=== PATIENT | male | born 1950 | race Caucasian/White ===

== ENCOUNTER → 2016-12-31 | Outpatient (CLI) | payer MEDICARE ==
[2016-12-31 11:40] LABS: Basophils # (A) 0.1 k/uL (0-0.2); Basophils % (A) 2 %; CH 32.7; CHCM 35.8; Eosinophils # (A) 0.2 k/uL (0-0.7); Eosinophils % (A) 4 %; HCT 45.7 % (39.0-53.0); HDW 2.87; HGB 15.6 gm/dL (13.0-17.5); Luc # (Auto) 0.13; Luc % (Auto) 2; Lymphocytes # (A) 1.7 k/uL (1.0-4.8); Lymphocytes % (A) 30 %; MCH 31.3 pg (25.0-35.0); MCHC 34.1 g/dL (31.0-37.0); MCV 91.7 fL (80.0-100.0); Mean Platelet Volume 7.4; Monocytes # (A) 0.3 k/uL (0-1.0); Monocytes % (A) 6 %; Neutrophils # (A) 3.2 k/uL (1.3-7.7); Neutrophils % (A) 56 %; RBC 4.98 m/uL (4.30-5.90); RDW 14.7 % (11.5-15.5); WBC 5.6 k/uL (3.8-10.6); WBC (Perox) 5.56
[2016-12-31 13:42] LABS: Prostate Specific Antigen 1.91 ng/mL (0.00-4.00)
[2016-12-31 14:10] LABS: Potassium 4.5 mmol/L (3.5-5.1); Sodium 135 mmol/L (137-145)
[2016-12-31 14:11] LABS: ALT 66 U/L (21-72); AST 25 U/L (17-59); Alkaline Phosphatase 124 U/L (38-126); Anion Gap 13 mmol/L; Blood Urea Nitrogen 20 mg/dL (9-20); Calcium 10.6 mg/dL (8.4-10.2); Carbon Dioxide 23 mmol/L (22-30); Chloride 99 mmol/L (98-107); Cholesterol 185 mg/dL (<200); HDL Cholesterol 38 mg/dL (40-60); Hepatitis C Virus IgG Index 0.02; Non-African American GFR(MDRD) >60 (>60 ml/min/1.73 sqM); Total Bilirubin 1.3 mg/dL (0.2-1.3); Total Protein 7.4 g/dL (6.3-8.2)
[2016-12-31 14:12] LABS: Glucose 449 mg/dL (74-99); Hepatitis C Virus IgG Ab Negative (Negative)
== END | disposition home or self-care (01) ==
LOC: LABWHC1 11:08
PROVIDERS: ATTEND Internal Medicine
DX: E55.9 Vitamin D deficiency, unspecified (principal); I10 Essential (primary) hypertension; Z12.5 Encounter for screening for malignant neoplasm of prostate; Z13.9 Encounter for screening, unspecified
CPT/HCPCS: 36415; 80053; 80061; 82306; 84153; 85025; 86803

== ENCOUNTER → 2018-01-04 | Outpatient (CLI) | payer MEDICARE ==
[2018-01-04 09:35] LABS: ALT 34 U/L (21-72); AST 24 U/L (17-59); Albumin 4.4 g/dL (3.5-5.0); Alkaline Phosphatase 70 U/L (38-126); Anion Gap 8 mmol/L; Blood Urea Nitrogen 23 mg/dL (9-20); Carbon Dioxide 27 mmol/L (22-30); Chloride 105 mmol/L (98-107); Cholesterol 148 mg/dL (<200); Glucose 107 mg/dL (74-99); HDL Cholesterol 46 mg/dL (40-60); LDL Cholesterol,Calculated 84 mg/dL (0-99); Potassium 4.4 mmol/L (3.5-5.1); Sodium 140 mmol/L (137-145); Total Bilirubin 1.1 mg/dL (0.2-1.3); Triglycerides 92 mg/dL (<150)
== END | disposition home or self-care (01) ==
LOC: LABWHC1 08:13
PROVIDERS: ATTEND Internal Medicine Interventional Cardiology
DX: E78.2 Mixed hyperlipidemia (principal)
CPT/HCPCS: 36415; 80053; 80061

== ENCOUNTER → 2018-07-18 | Outpatient (CLI) | payer MEDICARE ==
[2018-07-18 08:22] LABS: Basophils # (A) 0.1 k/uL (0-0.2); Basophils % (A) 2 %; Eosinophils # (A) 0.4 k/uL (0-0.7); Eosinophils % (A) 7 %; HCT 44.1 % (39.0-53.0); HGB 14.4 gm/dL (13.0-17.5); Lymphocytes # (A) 1.5 k/uL (1.0-4.8); Lymphocytes % (A) 29 %; MCH 30.3 pg (25.0-35.0); MCHC 32.6 g/dL (31.0-37.0); MCV 92.9 fL (80.0-100.0); Mean Platelet Volume 6.7; Monocytes # (A) 0.4 k/uL (0-1.0); Monocytes % (A) 8 %; Neutrophils # (A) 2.5 k/uL (1.3-7.7); Neutrophils % (A) 51 %; Platelet Count 190 k/uL (150-450); RBC 4.75 m/uL (4.30-5.90); RDW 12.8 % (11.5-15.5)
[2018-07-18 11:32] LABS: Albumin 4.8 g/dL (3.80-4.90); Albumin/Globulin Ratio 2.82 (1.60-3.17); Anion Gap 7.5 mmol/L (4.00-12.00); Calcium 9.8 mg/dL (8.7-10.3); Carbon Dioxide 26.5 mmol/L (21.6-31.8); Globulin 1.7 g/dL (1.6-3.3); LDL Cholesterol,Calculated 87.6 mg/dL (0.0-131.0); Potassium 4.3 mmol/L (3.5-5.5); Total Bilirubin 0.8 mg/dL (0.3-1.2); Total Protein 6.5 g/dL (6.2-8.2); VLDL Calculation 25.4 mg/dL (5.00-40.00)
== END | disposition home or self-care (01) ==
LOC: LABWHC1 07:35
PROVIDERS: ATTEND Internal Medicine
DX: E55.9 Vitamin D deficiency, unspecified (principal); E11.9 Type 2 diabetes mellitus without complications; E78.5 Hyperlipidemia, unspecified; Z12.5 Encounter for screening for malignant neoplasm of prostate
CPT/HCPCS: 36415; 80053; 80061; 82306; 84153; 85025

== ENCOUNTER 2018-08-13 06:50 | Day surgery (SDC) | payer MEDICARE ==
[2018-08-09 09:22] VITALS: BMI 28.8
[~2018-08-13 06:50] MED LIST: LACTATED RINGERS 1,000 ML IV SCH; LIDOCAINE 1% 20 ML VIAL (10MG/ML) FOR IV START INTRADERMA PRN
[2018-08-13] MEDS ORDERED: LACTATED RINGERS 1,000 ML IV ONE (07:07)
[2018-08-13 07:20] VITALS: TEMP 98.6
[2018-08-13 07:29] LABS: Glucose,Whole Blood 116 mg/dL (75-99)
[2018-08-13] MEDS ORDERED: LIDOCAINE 1% INJ 10MG/ML (20 ML MDV) ONE (07:46)
[2018-08-13] MEDS ORDERED: fentaNYL (PF) 50 MCG/ML 2 ML AMP ONE (07:46)
[2018-08-13] MEDS ORDERED: PROPOFOL 10 MG/ML 20 ML VIAL IV ONE (07:46)
[2018-08-13] MEDS ORDERED: MIDAZOLAM 2 MG/2 ML VIAL ONE (07:46)
[2018-08-13 08:17] VITALS: RESP 16
--- NOTE | 2018-08-13 08:20 | P.PCN ---
Date of Procedure: 08/13/18 Procedure(s) Performed: Procedure: Total colonoscopy. Preoperative diagnosis: Screening for neoplasia, patient has history of polyps. Postoperative diagnosis: Sigmoid diverticulosis with no evidence of acute diverticulitis, strictures, polyps or cancer. Preparation: HalfLytely prep. Sedation: Was provided by anesthesia. Brief clinical history: The patient a 67-year-old male who is scheduled for this evaluation for screening for neoplasia, age being his risk factor as well as history of polyps. His last exam was in 2013. The patient has no abdominal complaints, bleeding or anemia. Procedure: With the patient on his left lateral decubitus position and after informed consent and adequate sedation, the perianal area was inspected and it did not show any fissures or fistulas. There were no masses felt on digital rectal examination. The Olympus CFH 190L video colonoscope was then inserted in the rectum in the usual fashion and advanced to the cecum. There were several diverticular orifices seen scattered in the sigmoid with no evidence of acute diverticulitis or strictures. The mucosa appeared healthy. No polyps or tumors were seen. I retroflexed the endoscope in the rectum before the endoscope was withdrawn. Low-grade internal hemorrhoids were noted with no evidence of bleeding. The patient tolerated the procedure well. Plan: The patient was reassured. Discussed dietary measures. In light of his history, I recommended repeat exam in 5 years. He will follow up with you as planned.
[2018-08-13 08:53] VITALS: BP 116/72; PULSE 58
== END 2018-08-13 09:01 | disposition home or self-care (01) ==
LOC: ORWHC2ENDO 06:50
DX: Z12.11 Encounter for screening for malignant neoplasm of colon (principal); K57.30 Diverticulosis of large intestine without perforation or abscess without bleeding; K64.8 Other hemorrhoids; E11.9 Type 2 diabetes mellitus without complications; I10 Essential (primary) hypertension; E78.5 Hyperlipidemia, unspecified; I25.10 Atherosclerotic heart disease of native coronary artery without angina pectoris; I25.2 Old myocardial infarction; Z95.5 Presence of coronary angioplasty implant and graft; Z96.653 Presence of artificial knee joint, bilateral; Z88.8 Allergy status to other drugs, medicaments and biological substances; Z79.82 Long term (current) use of aspirin; Z86.010 Personal history of colon polyps; Z79.84 Long term (current) use of oral hypoglycemic drugs; Z79.899 Other long term (current) drug therapy
CPT/HCPCS: J2250; J2001; J3010; J2704; G0105

== ENCOUNTER → 2018-10-01 | Outpatient (CLI) | payer MEDICARE ==
[2018-10-01 16:37] LABS: LDL Cholesterol,Calculated 79.6 mg/dL (0.0-131.0); VLDL Calculation 30.4 mg/dL (5.00-40.00)
== END | disposition home or self-care (01) ==
LOC: LABWHC1 07:36
PROVIDERS: ATTEND Nurse Practitioner Adult Health
DX: E78.2 Mixed hyperlipidemia (principal)
CPT/HCPCS: 36415; 80061; 84450; 84460

== ENCOUNTER → 2019-06-04 | Outpatient (CLI) | payer MEDICARE ==
[2019-06-04 14:08] LABS: HCT 47.8 % (39.0-53.0); HGB 15.8 gm/dL (13.0-17.5); MCH 30.6 pg (25.0-35.0); MCV 92.7 fL (80.0-100.0); Mean Platelet Volume 7.4; Platelet Count 219 k/uL (150-450); RBC 5.16 m/uL (4.30-5.90); WBC 7.3 k/uL (3.8-10.6)
== END ==
LOC: LABPAT 12:59
PROVIDERS: ATTEND Internal Medicine Interventional Cardiology
DX: Z01.812 Encounter for preprocedural laboratory examination (principal); I25.10 Atherosclerotic heart disease of native coronary artery without angina pectoris
CPT/HCPCS: 85027

== ENCOUNTER → 2019-06-04 | Outpatient (CLI) | payer MEDICARE ==
[2019-06-04 19:14] LABS: African American GFR (CKD) 101.4 (60.0-200.0); Albumin/Globulin Ratio 2.78 (1.60-3.17); Anion Gap 8.3 mmol/L (4.00-12.00); BUN/Creat Ratio 26.67 Ratio (12.00-20.00); Carbon Dioxide 22.7 mmol/L (21.6-31.8); Chol/HDL Ratio 4.08; Globulin 1.8 g/dL (1.6-3.3); LDL Cholesterol,Calculated 71.6 mg/dL (0.0-131.0); Non-African American GFR(CKD) 87.5 (60.0-200.0); Potassium 4.9 mmol/L (3.5-5.5); Total Bilirubin 0.8 mg/dL (0.2-1.2); Total Protein 6.8 g/dL (6.2-8.2); VLDL Calculation 39.4 mg/dL (5.00-40.00)
== END ==
LOC: LABWHC1 13:04
PROVIDERS: ATTEND Internal Medicine Interventional Cardiology
DX: E78.2 Mixed hyperlipidemia (principal)
CPT/HCPCS: 36415; 80053; 80061

== ENCOUNTER → 2019-06-11 | Day surgery (SDC) | payer MEDICARE ==
[2019-06-06 09:22] VITALS: BMI 30.1
[~2019-06-11] MED LIST changes: +ALPRAZolam 0.25 MG TAB PO PRN; +ALPRAZolam 0.5 MG TAB PO PRN; +ASPIRIN 325 MG TAB PO STA; +ATORVASTATIN 40 MG TAB PO SCH; +ATORVASTATIN 80 MG TAB PO STA; +CHOLECALCIFEROL 1,000 UNIT TAB PO SCH; +ENALAPRIL 20 MG PO SCH; +HEPARIN SODIUM 1,000 UN/ML (10ML VL) IV ONE; +HEPARIN SODIUM 1,000 UN/ML (10ML VL) ONE; +IOPAMIDOL-370 125ML BTL INJ ONE; -LACTATED RINGERS 1,000 ML IV SCH; -LIDOCAINE 1% 20 ML VIAL (10MG/ML) FOR IV START INTRADERMA PRN; +LIDOCAINE 1% INJ 10MG/ML (20 ML MDV) ONE; +LIDOCAINE 1% INJ 10MG/ML (20 ML MDV) SQ ONE; +LUTEIN PO SCH; +LYCOPEN PO SCH; +METOPROLOL TARTRATE 50 MG TAB PO SCH; +MULTIVIT MIN PO SCH; +NITROGLYCERIN SL TABS 0.4 MG TAB SUBLINGUAL PRN; +NON FORMULARY DRUG (Aspirin Ec 81 MG) PO SCH; +RX INFO: IV CONTRAST WAS GIVEN 1 EACH MISC MISCELLANE PRN; +SODIUM CHLORIDE 0.9% 1,000 ML IV SCH; +SODIUM CHLORIDE 0.9% 1,000 ML in EMPTY BAG 1 BAG IV ONE; +VERAPAMIL 2.5 MG/ML 2 ML AMP ONE; +VERAPAMIL SYRINGE (5 MG/10 ML) INTRAARTER ONE; +[UNRECOGNIZED DRUG - OTHER] PO SCH; +fentaNYL (PF) 50 MCG/ML 2 ML AMP IV ONE; +fentaNYL (PF) 50 MCG/ML 2 ML AMP ONE
[2019-06-11 06:51] VITALS: RESP 18; TEMP 97.7
[2019-06-11 06:57] LABS: Glucose,Whole Blood 118 mg/dL (75-99)
--- NOTE | 2019-06-11 08:35 | CC ---
CARDIAC CATHETERIZATION REPORT Mr. Low is a 68-year-old male with known history of hypertension, hyperlipidemia, diabetes mellitus, history of coronary artery disease, status post percutaneous revascularization of the right coronary artery in 2000 and 2002, who presented with symptoms of chest discomfort as well as an abnormal myocardial perfusion imaging. In view of that, recommendation was made regarding cardiac catheterization. The procedure as well as the risks and complications were discussed with the patient who is in full understanding and agreement. PROCEDURE: Patient was brought to superintendent [facility]ophysical laboratory in a fasting semi-sedated state after receiving fentanyl Benadryl and achieving moderate conscious sedated state. Using Xylocaine anesthesia in the Seldinger technique, a 6-Japanese sheath was introduced in the right radial artery. Selective right and left coronary angiography performed using 5-Japanese 3.5 bend right and left Kip catheter. Multiple views of the coronary artery including hemiaxial views were obtained. Following that 5-Japanese tight pigtail catheter was introduced in the left ventricle and a 30-degree KEVIN view of the left ventricle was obtained. Following that, catheter and sheath were removed. Hemostasis was obtained with deployment of TR band. There was no immediate complication. Patient was returned to his room in stable condition. Of note, the patient received 5000 units of intravenous heparin as well as intra-arterial verapamil. FINDINGS: LEFT MAIN: This is a large-sized vessel bifurcating in left circumflex and left anterior descending artery. Left main coronary artery has no evidence of high-grade stenosis. LEFT ANTERIOR DESCENDING ARTERY: This is a large-sized vessel giving rise to a very proximal diagonal branch. The diagonal branches off very proximally and the inferior branch has a 99% stenosis. The LAD proximally has a 30% to 40% plaque and the mid segment is totally occluded with ipsilateral collaterals filling up the mid and distal segment. LEFT CIRCUMFLEX: This is a nondominant vessel giving rise to a proximal obtuse marginal branch that has mild intimal disease. Distally it gives rise to a second obtuse marginal branch. Before the takeoff of the second obtuse marginal branch, the vessel has a 90% stenosis. The rest of the vessel has no high-grade stenosis. RIGHT CORONARY ARTERY: This is a large dominant vessel. The proximal segment of the right coronary artery has an 80% stenosis. Subsequently, there is a total occlusion of the stent in the mid segment and the distal segment with minimal antegrade flow. COLLATERALS: There is a good collateral from the left coronary system toward the right PDA that is a good caliber vessel. LEFT VENTRICULOGRAM: Left ventriculogram is performed in 30-degree KEVIN view and revealed anteroapical akinesis. Ejection function is 40%. There was no significant mitral regurgitation. HEMODYNAMICS: There was no gradient across the aortic valve. The left ventricular end-diastolic pressure was 16 to 20 mmHg. CONCLUSION: 1. Severe triple-vessel coronary artery disease with significant progression of disease compared with the images obtained in 2003 with totally occluded LAD and right coronary artery and critical stenosis in distal left circumflex. 2. Moderately impaired left ventricular systolic function which has worsened compared with the prior testing. RECOMMENDATION: In view of finding anatomy, I recommend proceeding with evaluation for coronary artery bypass grafting. Those findings and recommendation were discussed with the patient and his family and they are in full understanding and agreement. Duration of procedure is 17 minutes. ALMA / SARAH: [id number] /
--- NOTE | 2019-06-11 08:41 | LTR ---
June 11, 2019 Re: Saji Low Dear Dr. Prieto: I had the opportunity to perform coronary angiography on Mr. Low at [facility] on the 11 of June and a full copy of the procedure note will be forwarded to you. In brief, he was found to have severe progression of disease compared with the images obtained in 2002 with totally occluded LAD, right coronary artery and significant disease in the left circumflex with moderately impaired left ventricular systolic function. Based on those findings, I recommend proceeding with evaluation for coronary artery bypass grafting. I will keep you updated on his progress. Thank you again for allowing me the opportunity to participate in his care. Please feel free to call for any questions. Sincerely yours, MD ALMA Mauricio / SARAH: [id number] /
--- NOTE | 2019-06-11 10:28 | XR ---
EXAMINATION TYPE: XR chest 2V DATE OF EXAM: 06/11/2019 COMPARISON: 02/26/2015 HISTORY: Preop cardiac surgery evaluation. TECHNIQUE: Frontal and lateral views of the chest are obtained. FINDINGS: There is no focal air space opacity, pleural effusion, or pneumothorax seen. The cardiac silhouette size is within normal limits. The osseous structures are intact. Flowing anterior osteop hytes are seen of the thoracic spine. IMPRESSION: No acute cardiopulmonary process.
--- NOTE | 2019-06-11 10:33 | US ---
EXAMINATION TYPE: US carotid duplex BILAT DATE OF EXAM: 06/11/2019 COMPARISON: NONE CLINICAL HISTORY: Pre-Op Cardiac Surgery,Ankle Brachial Index (ADEN) . Pre-Op CABG EXAM MEASUREMENTS: RIGHT: Peak Systolic Velocity (PSV) cm/sec ----- Right CCA: 98.7 ----- Right ICA: 116.1 ----- Right ECA: 91.8 ICA/CCA ratio: 1.2 RIGHT: End Diastole cm/sec ----- Right CCA: 20.2 ----- Right ICA: 40.2 ----- Right ECA: 7.6 LEFT: Peak Systolic Velocity (PSV) cm/sec ----- Left CCA: 84.5 ----- Left ICA: 108.1 ----- Left ECA: 72.4 ICA/CCA ratio: 1.3 LEFT: End Diastole cm/sec ----- Left CCA: 24.1 ----- Left ICA: 32.1 ----- Left ECA: 5.4 VERTEBRALS (direction of flow): Right Vertebral: Antegrade Left Vertebral: Antegrade Rhythm: Normal No significant stenosis seen IMPRESSION: Mild degree of grayscale atheromatous plaquing with no sonographically evident hemodynam ically significant stenosis within either visualized carotid arterial system. Criteria for Assigning % of Stenosis / Diameter reduction (Estimation based on the indirect measurements of the internal carotid artery velocities (ICA PSV). 1. Normal (no stenosis)=ICA PSV < 125 cm/s: ratio < 2.0: ICA EDV<40 cm/s. 2. Less than 50% stenosis=ICA PSV < 125 cm/s: ratio < 2.0: ICA EDV<40 cm/s. 3. 50 to 69% stenosis=ICA PSV of 125 to 230 cm/s: ration 2.0 ? 4.0: ICA EDV 40-100 cm/s. 4. Greater than 70% stenosis to near occlusion= ICA PSV > 230 cm/s: ratio > 4.0: ICA EDV > 100 cm/s. 5. Near occlusion= ICA PSV velocities may be low or undetectable: variable ratio and ICA EDV. 6. Total occlusion=unable to detect flow.
[2019-06-11 11:11] LABS: Basophils # (A) 0.1 k/uL (0-0.2); Basophils % (A) 1 %; Eosinophils # (A) 0.3 k/uL (0-0.7); Eosinophils % (A) 5 %; HCT 43.2 % (39.0-53.0); HGB 14.7 gm/dL (13.0-17.5); Lymphocytes # (A) 1.7 k/uL (1.0-4.8); Lymphocytes % (A) 28 %; MCH 30.7 pg (25.0-35.0); MCV 90.4 fL (80.0-100.0); Mean Platelet Volume 7.4; Monocytes # (A) 0.4 k/uL (0-1.0); Monocytes % (A) 7 %; Neutrophils # (A) 3.3 k/uL (1.3-7.7); Neutrophils % (A) 55 %; Platelet Count 213 k/uL (150-450); RBC 4.77 m/uL (4.30-5.90); RDW 12.9 % (11.5-15.5); WBC 5.9 k/uL (3.8-10.6)
[2019-06-11 11:22] LABS: ALT 40 U/L (4-49); AST 26 U/L (17-59); African American GFR (CKD) >90 (>60 ml/min/1.73 sqM); Albumin 4.6 g/dL (3.5-5.0); Alkaline Phosphatase 89 U/L (38-126); Anion Gap 9 mmol/L; Blood Urea Nitrogen 25 mg/dL (9-20); Calcium 9.7 mg/dL (8.4-10.2); Carbon Dioxide 22 mmol/L (22-30); Chloride 105 mmol/L (98-107); Cholesterol 120 mg/dL (<200); Glucose 115 mg/dL (74-99); HDL Cholesterol 34 mg/dL (40-60); LDL Cholesterol,Calculated 63 mg/dL (0-99); Magnesium 2.3 mg/dL (1.6-2.3); Non-African American GFR(CKD) 89 (>60 ml/min/1.73 sqM); Partial Thromboplastin Time 26.9 sec (22.0-30.0); Potassium 4.8 mmol/L (3.5-5.1); Prothrombin Time 10.7 sec (9.0-12.0); Sodium 136 mmol/L (137-145); Total Protein 7.1 g/dL (6.3-8.2); Triglycerides 113 mg/dL (<150)
[2019-06-11 14:05] LABS: Appearance,Urine Clear (Clear); Bilirubin,Urine Negative (Negative); Blood,Urine Negative (Negative); Color,Urine Yellow; Glucose,Urine (UA) Negative (Negative); Ketones,Urine Negative (Negative); Leukocyte Esterase,Urine Negative (Negative); Nitrite,Urine Negative (Negative); Protein,Urine Negative (Negative); Specific Gravity,Urine 1.035 (1.001-1.035); Urobilinogen,Urine <2.0 mg/dL (<2.0)
--- NOTE | 2019-06-11 14:06 | P.GSCN ---
History of Present Illness Consult date: 06/11/19 Reason for Consult: Multivessel coronary artery disease, evaluation for myocardial revascularization surgery Requesting physician: Shawn Mari History of present illness: This is a 68-year-old gentleman who is followed by Dr. Jalen Herzog on an outpatient basis. His past medical history significant for hypertension, dyslipidemia, coronary artery disease with previous stent placement to his right coronary artery in 2000 and in 2002, psoriasis, [id number] diabetes mellitus type 2 and a family history of coronary artery disease less than 60 years of age with his father and some uncles diagnosed in her early 50s with coronary artery disease. Recently, the patient has been complaining of some shortness of breath with activity especially in cold weather. He is fairly active and walks 3 times a week. He denies any complaints of chest pain, cough, nausea, vomiting, orthopnea, syncope or palpitations. Due to his complaints of shortness of breath a 2-D echocardiogram was completed at Dr. Mari's office on 05/20/2019 which demonstrated his left left ventricle to be normal in size with a mildly decreased systolic function and ejection of 45%. It also demonstrated mild mitral valve regurgitation, mild aortic valve regurgitation, and mild tricuspid valve regurgitation. For further evaluation he underwent a nuclear Lexiscan Cardiolite stress test on 05/23/2019 which showed abnormal myocardial perfusion imaging with evidence of prior myocardial infarction involving the apex, inferior wall and inferior septal wall with segmental wall motion abnormality consistent with prior marker infarction probably in the RCA territory. Due to the patient's symptoms and abnormal findings on his stress test a cardiac catheterization was recommended. Today 06/11/2019 the patient underwent an elective cardiac catheterization performed by Dr. Mari which demonstrated a 30-40% stenosis to his proximal left anterior descending coronary artery a 99% stenosis to his mid left anterior descending coronary artery, a 90% stenosis to his circumflex coronary artery and 80% stenosis to his proximal segment of his right coronary artery and a total occlusion of the stent in the mid segment and the distal segment of his right coronary artery. Also during heart catheterization a left ventriculogram was completed which showed him to have an ejection fraction of 40%. The heart catheterization films were reviewed with the patient by Dr. Mari and a consult was placed for Dr. Jamel Wolff from cardiothoracic surgery for further treatment recommendations and evaluation for myocardial revascularization surgery. Review of Systems A 14 point review of systems was completed and was negative except as mentioned in HPI. Past Medical History Past Medical History: Coronary Artery Disease (CAD) (Previous stent placements to his right coronary artery in 2000 and 2002.), Diabetes Mellitus, Hyperlipidemia, Hypertension, Myocardial Infarction (IL) (Myocardial infarction in 2000), Skin Disorder Additional Past Medical History / Comment(s): [place] x2, ongoing respiratory "thing"-drs not sure what, hx psoriasis, Last Myocardial Infarction Date:: unknown History of Any Multi-Drug Resistant Organisms: None Reported Past Surgical History: Adenoidectomy, Back Surgery, Heart Catheterization With Stent, Joint Replacement, Tonsillectomy Additional Past Surgical History / Comment(s): heart stents x 3, roni knee replacement, surgery for undescended testicle, roni cataracts, hemorrhoidectomy, lower back surgery Past Anesthesia/Blood Transfusion Reactions: Motion Sickness, Postoperative Nausea & Vomiting (PONV) Additional Past Anesthesia/Blood Transfusion Reaction / Comm: severe PONV with general anesthesia Date of Last Stent Placement:: 2000 and 2002 to his RCA Past Psychological History: No Psychological Hx Reported Smoking Status: Never smoker Past Alcohol Use History: Rare Past Drug Use History: None Reported - Past Family History Mother Family Medical History: Dementia Additional Family Medical History / Comment(s): Past awake at age 83 from complications of influenza Father Family Medical History: Myocardial Infarction ([place]) Medications and Allergies Home Medications Medication Instructions Recorded Confirmed Type Aspirin EC [Ecotrin] 81 mg PO DAILY 01/10/14 06/11/19 History Enalapril [Vasotec] 20 mg PO QAM 01/10/14 06/11/19 History Metoprolol Tartrate [Lopressor] 25 mg PO BID 01/10/14 06/11/19 History Atorvastatin [Lipitor] 40 mg PO HS 08/09/18 06/11/19 History Cholecalciferol [Vitamin D3] 4,000 unit PO DAILY 08/09/18 06/11/19 History Multivit-Min/FA/Lycopen/Lutein 1 each PO DAILY 08/09/18 06/11/19 History [Centrum Silver Men Tablet] metFORMIN HCL 500 mg PO BID 08/09/18 06/11/19 History Allergies Allergy/AdvReac Type Severity Reaction Status Date / Time fenofibrate nanocrystallized AdvReac Unknown MUSCLE Verified 06/11/19 06:47 [From Tricor] SPASMS, BLACKED OUT fenofibrate,micronized AdvReac Unknown MUSCLE Verified 06/11/19 06:47 [From Tricor] SPASMS, BLACKED OUT Surgical - Exam Vital Signs Temp Pulse Resp BP Pulse Ox 97.7 F 81 18 134/74 98 06/11/19 06:49 06/11/19 06:49 06/11/19 06:49 06/11/19 06:49 06/11/19 06:49 - General well developed, well nourished, no distress, no pain, obese - Eyes PERRL, normal ocular movement - ENT normal pinna, normal nares, normal mucosa, no hearing loss, no congestion - Neck Neck is supple, no lymphadenopathy. no masses, no bruits, trachea midline, no venous distension - Respiratory Lung sounds essentially clear throughout. No wheezes no rhonchi no crackles. Respirations are symmetrical and nonlabored. - Cardiovascular Regular rhythm and rate. S1 and S2 present, negative for S3, gallop or murmur. No edema present. - Abdomen Abdomen is soft, nontender and nondistended. Active bowel sounds present all 4 abdominal quadrants. Obese. No guarding or rigidity. No organomegaly appreciated. - Genitourinary Deferred - Rectum Deferred - Integumentary Skin is warm and dry. No clubbing or cyanosis is present. - Neurologic Cranial nerves II through XII intact. - Musculoskeletal normal gait, normal posture - Psychiatric oriented to time, oriented to person, oriented to place, speech is normal, memory intact Results - Labs 06/11/19 10:45 06/11/19 10:45 Abnormal Lab Results - Last 24 Hours (Table) 06/11/19 Range/Units 06:53 POC Glucose (mg/dL) 118 H (75-99) mg/dL - Imaging Comments: Cardiac catheterization results were reviewed by Dr. Jamel Wolff from cardiothoracic surgery. 2-D echocardiogram and nuclear Lexiscan Cardiolite stress test results reviewed and obtained from Dr. Mari's office. Assessment and Plan Assessment: 1. Multivessel coronary artery disease 2. History of coronary artery disease with previous stent placement to his right coronary artery in 2000 and 2002 3. History of myocardial infarction in 2000 4. Hypertension 5. Dyslipidemia 6. Pri-[id number]-[id number] diabetes mellitus type 2 7. Family history of early onset coronary artery disease with his uncles and father being diagnosed in their early 50s with coronary artery disease Plan: The patient was seen and examined at his bedside in the extended stay unit. His chart and diagnostics were reviewed. He was seen and examined by Dr. Jamel Wolff from cardiothoracic surgery. Preoperative testing and preoperative teaching has been initiated. We have obtained the results of his nuclear Lexiscan Cardiolite stress test and 2-D echocardiogram results from Dr. Mari's office completed in May 2019. Dr. Wolff reviewed the cardiac catheterization film findings with the patient, discussed the risks and benefits of myocardial revascularization surgery with the patient. His STS risk score was calculated in discussed with the patient by Dr. Jamel Wolff. Knowing the risks and benefits of myocardial revascularization surgery, the patient wished to proceed with surgery on an elective basis and will be scheduled for myocardial revascularization surgery for 06/19/[address] Jamel Wolff. A 5 m walk test was completed with the patient, time 1: 2.91 seconds, Time 2: 2.80 seconds, Time 3: 2.[address] Mari for this consult and we will look forward to working with you in the care of this patient. Time with Patient: Greater than 30
[2019-06-11 15:02] VITALS: BP 142/76; PULSE 57
[2019-06-11 17:32] LABS: Hepatitis A Antibody IgM Non-Reactive (Non-Reactive); Hepatitis B Core IgM Non-Reactive (Non-Reactive); Hepatitis B Surface Antigen Non-Reactive (Non-Reactive); Hepatitis C IgG Antibody Non-Reactive (Non-Reactive)
[2019-06-11 18:57] LABS: Hemoglobin A1C 5.3 % (4.0-6.0)
--- NOTE | 2019-06-12 11:34 | P.ARTDOP ---
Arterial Doppler LOWER EXTREMITY ARTERIAL DOPPLER: DATE OF SERVICE: 06/11/2019 Reason for study: Preop CABG. Doppler waveforms: Multiphasic bilaterally throughout. Pulse volume recording: []. Pressure gradients: Gradients above the thigh on the right. Ankle-brachial indices: 0.63 on the right and 0.99 on the left. Toe brachial indices: 0.47 on the right, 0.55 on the left Impression: The left is normal. Pressures suggest moderate right fem-pop disease with possible iliac component. The ways forms are so normal at the foot and ankle level that I am somewhat skeptical about the pressures. Clinical correlation recommended.
--- NOTE | 2019-06-12 11:36 | P.VSCSTY ---
Greater Saphenous Vein Mapping This is bilateral lower extremity greater saphenous vein mapping. Date of service: 06/11/2019 Vein quality and ultrasound appearance: No endoluminal thrombus or wall changes are seen. Vein size groin right : 5.7 x 7.1 groin left: 5.9 x 7.5 High thigh right: 3.7 x 4.3 high thigh left: 4.7 x 5.6 Mid thigh right: 4.1 x 4.1 mid thigh left: 5.2 x 6.0 Above-knee right: 3.6 x 3.4 above- knee left: 4.9 x 4.2 Below knee right: 3.6 x 3.8 below-knee left: 4.2 x 4.4 Mid calf right: 3.5 x 3.5 mid calf left: 4.7 x 4.8 Ankle right: 3.6 x 3.2 ankle left: 3.4 x 3.2 Impression: Usable bilateral greater saphenous vein.
== END | disposition home or self-care (01) ==
LOC: CATHCVL 06:24
PROVIDERS: ATTEND Internal Medicine Interventional Cardiology
DX: I25.10 Atherosclerotic heart disease of native coronary artery without angina pectoris (principal); T82.855A Stenosis of coronary artery stent, initial encounter; I25.82 Chronic total occlusion of coronary artery; I10 Essential (primary) hypertension; I08.3 Combined rheumatic disorders of mitral, aortic and tricuspid valves; Z72.0 Tobacco use; E78.2 Mixed hyperlipidemia; E11.9 Type 2 diabetes mellitus without complications; E78.00 Pure hypercholesterolemia, unspecified; I25.5 Ischemic cardiomyopathy; L40.9 Psoriasis, unspecified; I25.2 Old myocardial infarction; Z82.49 Family history of ischemic heart disease and other diseases of the circulatory system; Z81.8 Family history of other mental and behavioral disorders; Z95.5 Presence of coronary angioplasty implant and graft; Z96.653 Presence of artificial knee joint, bilateral; Z98.42 Cataract extraction status, left eye; Z98.41 Cataract extraction status, right eye; Z98.890 Other specified postprocedural states; Z79.84 Long term (current) use of oral hypoglycemic drugs; Z79.82 Long term (current) use of aspirin; Z79.899 Other long term (current) drug therapy; Z88.8 Allergy status to other drugs, medicaments and biological substances
CPT/HCPCS: 94150; 93458; 80061; 80053; 80074; 84443; 83735; 85025; 85610; 85730; 81003; 87070; 83036; 71046; 93931; 93970; 93923; 93880; C1769; C1894; J2001; J3010; J1644; Q9967; 86850; 86900; 86901; 86920

== ENCOUNTER 2019-06-19 06:20 | Inpatient (IN) | payer MEDICARE ==
[~2019-06-19 06:20] MED LIST changes: +ALBUMIN HUMAN 25% 50 ML IV ONE; +ALBUMIN HUMAN 5% 500 ML IVPB ONE; -ALPRAZolam 0.25 MG TAB PO PRN; -ALPRAZolam 0.5 MG TAB PO PRN; +ASPIRIN 325 MG TAB PO ONE; -ASPIRIN 325 MG TAB PO STA; +ATORVASTATIN 10 MG TAB PO ONE; -ATORVASTATIN 40 MG TAB PO SCH; -ATORVASTATIN 80 MG TAB PO STA; +CALCIUM CHLORIDE 100 MG/ML 10 ML SYRINGE IV ONE; +CHLORHEXIDINE GLUCONATE 15 ML CUP MUCOUS MEM ONE; -CHOLECALCIFEROL 1,000 UNIT TAB PO SCH; +CLEVIDIPINE BUTYRATE 25 MG in EMPTY BAG 1 BAG IV ONE; +DEXTROSE 5% IN WATER 1,000 ML with POTASSIUM CHLORIDE 110 MEQ, MAGNESIUM SULFATE 16 MEQ... IV ONE; +DEXTROSE 5% IN WATER 1,000 ML with POTASSIUM CHLORIDE 25 MEQ, SODIUM CHLORIDE 2.5MEQ/ML... IRRIGATION ONE; +DILTIAZEM 125 MG in SODIUM CHLORIDE 0.9% 100 ML IV ONE; -ENALAPRIL 20 MG PO SCH; -HEPARIN SODIUM 1,000 UN/ML (10ML VL) ONE; +HEPARIN SODIUM,PORCINE 5,000 UNIT in SODIUM CHLORIDE 0.9% 500 ML 500 ML IV ONE; +INSULIN REGULAR 100 UNIT in SODIUM CHLORIDE 0.9% 100 ML IV ONE; -IOPAMIDOL-370 125ML BTL INJ ONE; +LACTATED RINGERS 1,000 ML IV ONE; -LIDOCAINE 1% INJ 10MG/ML (20 ML MDV) ONE; -LIDOCAINE 1% INJ 10MG/ML (20 ML MDV) SQ ONE; -LUTEIN PO SCH; -LYCOPEN PO SCH; +MAGNESIUM SULFATE MG 500 MG/ML IV ONE; +MANNITOL 25% 12.5 GM/50 ML VIAL IV ONE; +METOPROLOL TARTRATE 12.5 MG TAB PO ONE; -METOPROLOL TARTRATE 50 MG TAB PO SCH; -MULTIVIT MIN PO SCH; -NITROGLYCERIN SL TABS 0.4 MG TAB SUBLINGUAL PRN; +NITROGLYCERIN-D5W PMX 25 MG/250 ML BTL IV ONE; +NITROGLYCERIN-D5W PMX 50 MG in DEXTROSE/WATER 1 250ML.BAG IV ONE; -NON FORMULARY DRUG (Aspirin Ec 81 MG) PO SCH; +NOREPINEPHRINE 4 MG in SODIUM CHLORIDE 0.9% 250 ML IV ONE; +PAPAVERINE 360 MG in SODIUM CHLORIDE 0.9% 90 ML IV ONE; +PHENYLEPHRINE 10 MG/ML VIAL IV ONE; +PHENYLEPHRINE 40 MG in SODIUM CHLORIDE 0.9% 250 ML IV ONE; +PROPOFOL 1,000 MG/100 ML VIAL IV ONE; +PROTAMINE SULFATE 10 MG/ML 25 ML VIAL IV ONE; +PROTAMINE SULFATE 250 MG in EMPTY BAG 1 BAG IV ONE; -RX INFO: IV CONTRAST WAS GIVEN 1 EACH MISC MISCELLANE PRN; +SODIUM BICARB 8.4% 50 ML SYR (1 MEQ/ML) IV ONE; +SODIUM CHLORIDE 0.9% 1,000 ML IV ONE; -SODIUM CHLORIDE 0.9% 1,000 ML IV SCH; -SODIUM CHLORIDE 0.9% 1,000 ML in EMPTY BAG 1 BAG IV ONE; +TRANEXAMIC ACID 2,000 MG in SODIUM CHLORIDE 0.9% 80 ML IV ONE; +VANCOMYCIN 1,000 MG VIAL MISCELLANE ONE; -VERAPAMIL 2.5 MG/ML 2 ML AMP ONE; -VERAPAMIL SYRINGE (5 MG/10 ML) INTRAARTER ONE; -[UNRECOGNIZED DRUG - OTHER] PO SCH; +ceFAZolin 1,000 MG in SODIUM CHLORIDE 0.9% IRRIGATIO 1,000 ML IRRIGATION ONE; +ceFAZolin 2,000 MG in SODIUM CHLORIDE 0.9% 30 ML IVPB ONE; -fentaNYL (PF) 50 MCG/ML 2 ML AMP IV ONE; -fentaNYL (PF) 50 MCG/ML 2 ML AMP ONE
[2019-06-19 07:17] LABS: Glucose,Whole Blood 119 mg/dL (75-99)
[2019-06-19] MEDS ORDERED: PROTAMINE SULFATE 10 MG/ML 25 ML VIAL IV ONE (08:25)
[2019-06-19] MEDS ORDERED: MAGNESIUM SULFATE 4 MEQ/ML 10ML VIAL ONE (08:25)
[2019-06-19] MEDS ORDERED: MIDAZOLAM 2 MG/2 ML VIAL ONE (08:25)
[2019-06-19] MEDS ORDERED: ePHEDrine SULFATE/0.9% NACL/PF 50 MG/5 ML SYRINGE IV ONE (08:25)
[2019-06-19] MEDS ORDERED: PROTAMINE SULFATE 10 MG/ML 5 ML VIAL IV ONE (08:25)
[2019-06-19] MEDS ORDERED: ELECTROLYTE-R (PH 7.4) 1,000 ML IV.SOLN IV ONE (08:25)
[2019-06-19] MEDS ORDERED: VECURONIUM 10 MG VIAL IV ONE (08:25)
[2019-06-19] MEDS ORDERED: LIDOCAINE 1% INJ 10MG/ML (20 ML MDV) ONE (08:25)
[2019-06-19] MEDS ORDERED: HEPARIN SODIUM,PORCINE 10,000 UNIT/ML 1 ML VIAL ONE (08:25)
[2019-06-19] MEDS ORDERED: NITROGLYCERIN-D5W PMX 50 MG/250 ML BOTTLE IV ONE (08:25)
[2019-06-19] MEDS ORDERED: PROPOFOL 10 MG/ML 20 ML VIAL IV ONE (08:25)
[2019-06-19] MEDS ORDERED: POTASSIUM CHLORIDE OPEN HEART 20 MEQ/50 ML BAG IVPB ONE (08:25)
[2019-06-19] MEDS ORDERED: SODIUM CHLORIDE 0.9% 250 ML BAG ONE (08:25)
[2019-06-19] MEDS ORDERED: fentaNYL (PF) 50 MCG/ML 2 ML AMP ONE (08:25)
[2019-06-19] MEDS ORDERED: LACTATED RINGERS 1,000 ML BAG IV ONE (08:25)
[2019-06-19] MEDS ORDERED: TRANEXAMIC ACID 1,000 MG/10 ML VIAL ONE (08:25)
[2019-06-19] MEDS ORDERED: fentaNYL (PF) 50 MCG/ML 50 ML VIAL ONE (08:25)
[2019-06-19] MEDS ORDERED: GLYCOPYRROLATE 0.2 MG/ML 2 ML VIAL ONE (08:25)
[2019-06-19 09:31] LABS: ABG Base Excess 1.4 mmol/L; ABG Glucose Whole Blood 112 mg/dL (75-99); ABG HCO3 26 mmol/L (21-25); ABG Hematocrit 41 % (34.0-46.0); ABG Ionized Calcium 4.9 mg/dL (4.5-5.3); ABG Lactic Acid Whole Blood 1.2 mmol/L (0.5-1.6); ABG Oxygen Saturation 99.5 % (94-97); ABG PCO2 42 mmHg (35-45); ABG PO2 203 mmHg (83-108); ABG Potassium Whole Blood 4.6 mmol/L (3.4-4.5); ABG Sodium Whole Blood 138 mmol/L (135-146); ABG TCO2 28 mmol/L (19-24)
[2019-06-19 10:35] LABS: ABG Base Excess -1.6 mmol/L; ABG Glucose Whole Blood 157 mg/dL (75-99); ABG HCO3 26 mmol/L (21-25); ABG Hematocrit 41 % (34.0-46.0); ABG Ionized Calcium 4.9 mg/dL (4.5-5.3); ABG Oxygen Saturation 99.6 % (94-97); ABG PCO2 52 mmHg (35-45); ABG PO2 283 mmHg (83-108); ABG Potassium Whole Blood 4.6 mmol/L (3.4-4.5); ABG Sodium Whole Blood 138 mmol/L (135-146); ABG TCO2 27 mmol/L (19-24)
[2019-06-19 11:26] LABS: ABG Base Excess -2.3 mmol/L; ABG Glucose Whole Blood 140 mg/dL (75-99); ABG HCO3 23 mmol/L (21-25); ABG Hematocrit 34 % (34.0-46.0); ABG Ionized Calcium 4.3 mg/dL (4.5-5.3); ABG Oxygen Saturation 99.9 % (94-97); ABG PCO2 42 mmHg (35-45); ABG PH 7.35 (7.35-7.45); ABG PO2 381 mmHg (83-108); ABG Potassium Whole Blood 4.3 mmol/L (3.4-4.5); ABG Sodium Whole Blood 133 mmol/L (135-146); ABG TCO2 25 mmol/L (19-24)
[2019-06-19 12:09] LABS: ABG Base Excess 2.9 mmol/L; ABG Glucose Whole Blood 213 mg/dL (75-99); ABG HCO3 28 mmol/L (21-25); ABG Hematocrit 32 % (34.0-46.0); ABG Ionized Calcium 4.4 mg/dL (4.5-5.3); ABG Lactic Acid Whole Blood 1.5 mmol/L (0.5-1.6); ABG Oxygen Saturation 99.7 % (94-97); ABG PCO2 44 mmHg (35-45); ABG PH 7.41 (7.35-7.45); ABG PO2 304 mmHg (83-108); ABG Potassium Whole Blood 4.8 mmol/L (3.4-4.5); ABG Sodium Whole Blood 136 mmol/L (135-146); ABG TCO2 29 mmol/L (19-24)
[2019-06-19 12:36] LABS: ABG Base Excess 1.2 mmol/L; ABG Glucose Whole Blood 269 mg/dL (75-99); ABG HCO3 26 mmol/L (21-25); ABG Hematocrit 30 % (34.0-46.0); ABG Ionized Calcium 4.3 mg/dL (4.5-5.3); ABG Lactic Acid Whole Blood 1.8 mmol/L (0.5-1.6); ABG PCO2 43 mmHg (35-45); ABG PH 7.39 (7.35-7.45); ABG PO2 349 mmHg (83-108); ABG Potassium Whole Blood 4.9 mmol/L (3.4-4.5); ABG Sodium Whole Blood 134 mmol/L (135-146); ABG TCO2 28 mmol/L (19-24)
[2019-06-19 13:11] LABS: ABG Base Excess 0.4 mmol/L; ABG Glucose Whole Blood 224 mg/dL (75-99); ABG HCO3 25 mmol/L (21-25); ABG Hematocrit 30 % (34.0-46.0); ABG Ionized Calcium 4.3 mg/dL (4.5-5.3); ABG Oxygen Saturation 99.7 % (94-97); ABG PCO2 38 mmHg (35-45); ABG PH 7.43 (7.35-7.45); ABG PO2 355 mmHg (83-108); ABG Potassium Whole Blood 4.6 mmol/L (3.4-4.5); ABG Sodium Whole Blood 135 mmol/L (135-146); ABG TCO2 26 mmol/L (19-24)
[2019-06-19] MEDS ORDERED: INSULIN REGULAR 100 UNIT in SODIUM CHLORIDE 0.9% 100 ML IV ONE (13:15)
[2019-06-19] MEDS ORDERED: Magnesium Replacement Protocol 1 EACH MISC MISCELLANE PRN (15:05)
[2019-06-19] MEDS ORDERED: AMIODARONE 360 MG in DEXTROSE 5% IN WATER 200 ML IV PRN ×2 (15:05)
[2019-06-19] MEDS ORDERED: INSULIN REGULAR 100 UNIT in SODIUM CHLORIDE 0.9% 100 ML IV SCH (15:05)
[2019-06-19] MEDS ORDERED: AMIODARONE 300 MG in DEXTROSE 5% IN WATER 250 ML IV PRN ×2 (15:05)
[2019-06-19] MEDS ORDERED: BENZOCAINE/MENTHOL LOZENG 1 EACH LOZENGE MUCOUS MEM PRN (15:05)
[2019-06-19] MEDS ORDERED: Phosphorus Replacement Protoco 1 EACH MISC MISCELLANE PRN (15:05)
[2019-06-19] MEDS ORDERED: IPRATROPIUM-ALBUTEROL 3 ML NEB INHALATION PRN (15:05)
[2019-06-19] MEDS ORDERED: NITROGLYCERIN-D5W PMX 50 MG in DEXTROSE/WATER 1 250ML.BAG IV SCH (15:05)
[2019-06-19] MEDS ORDERED: DEXTROSE 5% IN WATER 100 ML with AMIODARONE 150 MG IV PRN (15:05)
[2019-06-19] MEDS ORDERED: PROPOFOL 1,000 MG in EMPTY BAG 1 BAG IV SCH (15:05)
[2019-06-19] MEDS ORDERED: Potassium Replacement Protocol 1 EACH MISC MISCELLANE PRN (15:05)
[2019-06-19 15:30] LABS: ABG Lactic Acid Whole Blood 2.5 mmol/L (0.5-1.6)
[2019-06-19 15:50] LABS: Glucose,Whole Blood 80 mg/dL (75-99)
[2019-06-19] MEDS: LACTATED RINGERS 1,000 ML IV SCH (16:00)
[2019-06-19 16:07] LABS: Ionized Calcium 4.8 mg/dL (4.5-5.3)
[2019-06-19 16:11] LABS: ABG Base Excess 0.3 mmol/L; ABG HCO3 26 mmol/L (21-25); ABG Oxygen Saturation 99.9 % (94-97); ABG PCO2 46 mmHg (35-45); ABG PH 7.36 (7.35-7.45); ABG PO2 >400 mmHg (83-108); ABG TCO2 27 mmol/L (19-24); Allen Test Performed? Yes
[2019-06-19 16:13] LABS: Basophils % (A) 0 %; Eosinophils # (A) 0.1 k/uL (0-0.7); Eosinophils % (A) 1 %; HCT 28.6 % (39.0-53.0); Lymphocytes # (A) 1.2 k/uL (1.0-4.8); Lymphocytes % (A) 19 %; MCH 31.2 pg (25.0-35.0); MCHC 34.6 g/dL (31.0-37.0); MCV 90.1 fL (80.0-100.0); Mean Platelet Volume 8.2; Monocytes # (A) 0.6 k/uL (0-1.0); Monocytes % (A) 9 %; Neutrophils # (A) 4.4 k/uL (1.3-7.7); Neutrophils % (A) 70 %; RBC 3.17 m/uL (4.30-5.90); RDW 12.7 % (11.5-15.5); WBC 6.3 k/uL (3.8-10.6)
[2019-06-19 16:21] LABS: HGB 9.9 gm/dL (13.0-17.5)
[2019-06-19 16:22] LABS: Platelet Count 90 k/uL (150-450)
--- NOTE | 2019-06-19 16:25 | XR ---
EXAMINATION TYPE: XR chest 1V portable DATE OF EXAM: 06/19/2019 CLINICAL HISTORY: Post an open cardiac surgery. TECHNIQUE: Single AP portable frontal view of the chest is obtained. COMPARISON: Chest x-ray from June 11, 2009 FINDINGS: New endotracheal tube terminating just above the aortic knob approximately 5 cm above sierra na. New orogastric tube projecting below diaphragm. New right internal jugular [place] catheter ter minating at level of pulmonary outflow tract. Sternal wires and mediastinal clips along with cardiac closure device superiorly. New Left-sided chest tube and mediastinal drainage catheter. Diminished inspiration on current study with bibasilar linear atelectasis in left mid lung linear ate lectasis. No pleural effusion or pneumothorax. Cardiac silhouette size upper limits of normal with at herosclerotic aorta. Multilevel spurring the spine present. IMPRESSION: 1. Tubes and lines as detailed above are thought satisfactory in position. 2. Diminished inspiration with bibasilar and left midlung linear atelectatic changes.
[2019-06-19 16:26] LABS: Glucose,Whole Blood 69 mg/dL (75-99)
[2019-06-19] MEDS ORDERED: DEXTROSE 50% SYRINGE 50 ML IVP STA (16:33)
[2019-06-19] MEDS: ONDANSETRON 4 MG/2 ML VIAL IVP PRN (16:34)
[2019-06-19 16:45] LABS: ALT 23 U/L (4-49); AST 55 U/L (17-59); African American GFR (CKD) >90 (>60 ml/min/1.73 sqM); Albumin 3.4 g/dL (3.5-5.0); Alkaline Phosphatase 46 U/L (38-126); Anion Gap 6 mmol/L; Blood Urea Nitrogen 18 mg/dL (9-20); Carbon Dioxide 26 mmol/L (22-30); Chloride 106 mmol/L (98-107); Glucose 77 mg/dL (74-99); Magnesium 2.8 mg/dL (1.6-2.3); Non-African American GFR(CKD) >90 (>60 ml/min/1.73 sqM); Potassium 4.1 mmol/L (3.5-5.1); Sodium 138 mmol/L (137-145); Total Bilirubin 0.8 mg/dL (0.2-1.3)
[2019-06-19] MEDS: CLEVIDIPINE BUTYRATE 25 MG in EMPTY BAG 1 BAG IV SCH ×2 (16:46→18:45)
[2019-06-19 16:48] LABS: Glucose,Whole Blood 178 mg/dL (75-99)
[2019-06-19] MEDS: hydrALAZINE HCL 20 MG/ML 1 ML VIAL IVP PRN (17:09)
[2019-06-19] MEDS: IPRATROPIUM-ALBUTEROL 3 ML NEB INHALATION SCH ×2 (17:09→20:10)
[2019-06-19 17:15] LABS: Glucose,Whole Blood 140 mg/dL (75-99)
[2019-06-19] MEDS ORDERED: DEXMEDETOMIDINE/0.9% NACL(PMX) 400 MCG in EMPTY BAG 1 BAG IV SCH (17:43)
[2019-06-19 18:18] LABS: Glucose,Whole Blood 144 mg/dL (75-99)
[2019-06-19] MEDS: KETOROLAC 30 MG/ML 1 ML VIAL IVP SCH ×2 (18:25→23:22)
[2019-06-19 18:39] LABS: Basophils % (A) 0 %; Eosinophils # (A) 0.1 k/uL (0-0.7); Eosinophils % (A) 1 %; HCT 34.1 % (39.0-53.0); HGB 11.6 gm/dL (13.0-17.5); Lymphocytes # (A) 1.5 k/uL (1.0-4.8); Lymphocytes % (A) 13 %; MCH 31.3 pg (25.0-35.0); MCV 91.9 fL (80.0-100.0); Mean Platelet Volume 7.7; Monocytes # (A) 0.8 k/uL (0-1.0); Monocytes % (A) 7 %; Neutrophils # (A) 9.4 k/uL (1.3-7.7); Neutrophils % (A) 79 %; Platelet Count 122 k/uL (150-450); RBC 3.72 m/uL (4.30-5.90); RDW 12.9 % (11.5-15.5); WBC 11.9 k/uL (3.8-10.6)
--- NOTE | 2019-06-19 18:39 | OP ---
OPERATIVE REPORT DATE OF SURGERY: 06/19/2019. PREOP DIAGNOSIS: Coronary artery disease. POSTOPERATIVE DIAGNOSIS: Coronary artery bypass grafting. PROCEDURE PERFORMED: 1. Coronary artery bypass grafting x 4 vessels (left internal mammary artery to left anterior descending artery, saphenous vein graft to diagonal artery, saphenous vein graft to posterior descending artery, saphenous vein graft to obtuse marginal artery 2). 2. Endoscopic harvest right greater saphenous vein. 3. Epiaortic ultrasound. 4. Transesophageal cardiogram. 5. Ligation of left atrial appendage using 35 mm AtriCure. SURGEON: Jamel Wolff MD. CONSUMER LOAN OFFICER: 1. ROBERTO Harrington. 2. Horacio Blakely NP. ANESTHESIA: General. SPECIMEN: None. COMPLICATION: None. INDICATIONS: The patient is a 68-year-old male with a past medical history significant for coronary artery disease status post coronary stents, hypertension, hyperlipidemia, and diabetes who reports shortness of breath with activity. Stress test was found to be abnormal. Cardiac catheterization revealed multivessel coronary artery disease. A coronary artery bypass is recommended. The risks, benefits, and alternatives to this procedure were discussed with the patient. All his questions were answered. Consent was obtained. FINDINGS: The left internal mammary artery was a good conduit with brisk flow. The saphenous vein was an adequate good conduit. The LAD contained diffuse disease and was significantly calcified. The diagonal artery contained diffuse disease. It was significantly calcified. The PDA was significantly calcified. Distal obtuse marginal artery measured 1.3 mm in diameter. PROCEDURE IN DETAIL: The patient was taken to the operating room and placed supine on the operating table. After the induction of general anesthesia, he was prepped and draped in the usual sterile fashion. Preoperative transesophageal cardiogram confirmed an ejection fraction of about 40%. There was trivial mitral regurgitation and trivial aortic insufficiency noted. A median sternotomy was performed. The left internal mammary artery was harvested in the standard fashion taking care to clip all branches. Intravenous heparin was administered. The vessel was transected distally revealing brisk flow. Simultaneously greater saphenous vein was harvested from the right lower extremity using endoscopic technique. All branches were tied. Both the mammary artery and saphenous vein were good conduits. A pericardial cradle was created. The ascending aorta was palpated. There was no significant calcific plaque noted. Epiaortic ultrasound was then performed on the ascending aorta. Again no calcific plaque or atheromatous disease was identified. An arterial cannula was placed in the distal ascending aorta. A venous cannula was placed through the right atrial appendage and directed into the IVC. Both antegrade and retrograde catheters were placed as well. The patient was then placed on cardiopulmonary bypass with good decompression of the heart. The aortic cross-clamp was applied. Cold blood potassium cardioplegia was delivered in both antegrade and retrograde fashion to achieve arrest of the heart. Of note, cardioplegia was delivered every 15 to 20 minutes with the patient under crossclamp. The left atrial appendage was identified. A 35 mm Atriclip was placed across its base to ensure ligation. We then continued by inspecting the inferior wall. There was a vessel that corresponded with the posterior descending artery. It contained diffuse disease but a soft spot amenable for bypass was noted in its midsection. A small arteriotomy was created. This vessel accepted a 1 mm probe. Using saphenous vein in reverse fashion, an end-to-side anastomosis was created. This was performed using a running 7-0 Prolene suture. The graft was hemostatic and had good flow. Next, the lateral wall was inspected. The distal branch of the circumflex artery, which corresponds to the OM2 was identified. It was dissected free. A small arteriotomy was created in its proximal location. This vessel accepted a 1 mm probe. Using saphenous vein in a reverse fashion, an end-to-side anastomosis was created. This was performed using a running 7-0 Prolene suture. The graft was hemostatic and had good flow. This graft was situated so that it came out to the right side of the heart. Next the diagonal artery was identified. A small arteriotomy was created. This vessel accepted a 1 mm probe. Using saphenous vein in a reverse fashion, an end-to-side anastomosis was created. This was performed using a running 7-0 Prolene suture. The graft was hemostatic and had good flow. Finally, attention was turned to the LAD. It contained palpable calcific plaque throughout its course. A soft spot amenable for bypass was noted beyond its complete occlusion. A small arteriotomy was created. The moreno were thickened. The artery accepted a 1 mm probe distally. Using the left internal mammary artery, an end-to-side anastomosis was created. This was performed using a running 8-0 Prolene suture. The graft was hemostatic. The mammary pedicle was then tacked down to the anterior surface of the heart. Attention was then turned to the proximal anastomoses. These were performed in end-to- side fashion using running 6-0 Prolene sutures. One liter of warm blood was delivered in retrograde fashion. Lidocaine and magnesium were administered as well. The aortic cross-clamp was removed. The vein grafts were de-aired in the standard fashion. Of note, the vein graft to the OM 2 was brought around the right lateral wall of the ascending aorta. The vein graft to the PDA came to the center of the aorta. The vein graft to the diagonal artery came to the left side of the aorta. Temporary atrial and ventricular pacing wires were placed and brought through the skin. The patient was then weaned off cardiopulmonary bypass. He without difficulty. Followup transesophageal echocardiogram confirmed no change in the ejection fraction or valvular pathology. Protamine was administered. There were no adverse reactions. The remaining cannulas were removed. The mediastinum was copiously irrigated with warm saline solution. All surgical sites were again inspected and appeared to be hemostatic. Soft tissues were reapproximated over the ascending aorta as well as over the apex of the heart. Straight 32-Mosotho chest tubes were placed in the left pleural space and in the mediastinum. These were secured to the skin using sutures. The sternum was then reapproximated using the [place] cable system. The cables were placed in a figure of eight fashion. At the completion of the closure, the sternum was well aligned. For the most inferior cable, I did use a stainless wire as the bone here was quite hard. The wound was then closed in layers. Sterile dressing was applied. There were no immediate complications. The patient returned to the ICU in critical but stable condition. MMODL / IJN: [id number] / LAURA
[2019-06-19] MEDS: ACETAMINOPHEN IV (For NPO) 1,000 MG in EMPTY BAG 1 BAG IVPB SCH ×2 (18:41→23:22)
[2019-06-19 19:06] LABS: Glucose,Whole Blood 146 mg/dL (75-99)
[2019-06-19 19:09] LABS: ABG Base Excess -1.2 mmol/L; ABG HCO3 24 mmol/L (21-25); ABG Oxygen Saturation 99.3 % (94-97); ABG PCO2 41 mmHg (35-45); ABG PH 7.38 (7.35-7.45); ABG PO2 158 mmHg (83-108); ABG TCO2 25 mmol/L (19-24); Allen Test Performed? Yes
[2019-06-19] MEDS: ALBUMIN HUMAN 5% 250 ML in EMPTY BAG 1 BAG IVPB PRN ×3 (19:10→20:55)
[2019-06-19 19:54] LABS: Glucose,Whole Blood 152 mg/dL (75-99)
[2019-06-19] MEDS ORDERED: MUPIROCIN 2% OINT 22 GM TUBE NASAL ONE (20:45)
[2019-06-19 20:53] LABS: Glucose,Whole Blood 131 mg/dL (75-99)
[2019-06-19] MEDS: MUPIROCIN 2% OINT 22 GM TUBE NASAL SCH (20:55)
[2019-06-19] MEDS ORDERED: METOPROLOL TARTRATE 12.5 MG TAB PO SCH (21:00)
[2019-06-19 21:03] LABS: Basophils % (A) 0 %; Eosinophils % (A) 0 %; HCT 26.8 % (39.0-53.0); Lymphocytes # (A) 0.3 k/uL (1.0-4.8); Lymphocytes % (A) 5 %; MCH 31.3 pg (25.0-35.0); MCHC 34.1 g/dL (31.0-37.0); MCV 91.7 fL (80.0-100.0); Mean Platelet Volume 8.9; Monocytes # (A) 0.5 k/uL (0-1.0); Monocytes % (A) 7 %; Neutrophils # (A) 5.6 k/uL (1.3-7.7); Neutrophils % (A) 86 %; RBC 2.92 m/uL (4.30-5.90); RDW 12.9 % (11.5-15.5); WBC 6.6 k/uL (3.8-10.6)
[2019-06-19 21:13] LABS: HGB 9.1 gm/dL (13.0-17.5); Platelet Count 79 k/uL (150-450)
[2019-06-19 21:52] LABS: Glucose,Whole Blood 132 mg/dL (75-99)
[2019-06-19 22:53] LABS: Glucose,Whole Blood 135 mg/dL (75-99)
[2019-06-19] MEDS: HEPARIN SODIUM,PORCINE 5,000 UNIT/ML 1 ML VIAL SQ SCH (23:23)
[2019-06-20 00:02] LABS: Glucose,Whole Blood 122 mg/dL (75-99)
[2019-06-20 01:02] LABS: Glucose,Whole Blood 122 mg/dL (75-99)
[2019-06-20 02:24] LABS: Glucose,Whole Blood 123 mg/dL (75-99)
[2019-06-20 03:21] LABS: Glucose,Whole Blood 132 mg/dL (75-99)
[2019-06-20 04:04] LABS: Glucose,Whole Blood 134 mg/dL (75-99)
[2019-06-20 04:14] LABS: Basophils % (A) 0 %; Eosinophils % (A) 0 %; HCT 26.8 % (39.0-53.0); HGB 9.1 gm/dL (13.0-17.5); Lymphocytes # (A) 0.6 k/uL (1.0-4.8); Lymphocytes % (A) 11 %; MCH 31.3 pg (25.0-35.0); MCHC 34.1 g/dL (31.0-37.0); MCV 91.8 fL (80.0-100.0); Mean Platelet Volume 9.8; Monocytes # (A) 0.3 k/uL (0-1.0); Monocytes % (A) 6 %; Neutrophils # (A) 4.2 k/uL (1.3-7.7); Neutrophils % (A) 81 %; RBC 2.91 m/uL (4.30-5.90); RDW 13.1 % (11.5-15.5); WBC 5.2 k/uL (3.8-10.6)
[2019-06-20 04:17] LABS: Platelet Count 77 k/uL (150-450)
[2019-06-20 04:25] LABS: Ionized Calcium 4.4 mg/dL (4.5-5.3)
[2019-06-20 04:33] LABS: ALT 22 U/L (4-49); AST 42 U/L (17-59); African American GFR (CKD) >90 (>60 ml/min/1.73 sqM); Albumin 3.4 g/dL (3.5-5.0); Alkaline Phosphatase 38 U/L (38-126); Anion Gap 9 mmol/L; Blood Urea Nitrogen 19 mg/dL (9-20); Carbon Dioxide 23 mmol/L (22-30); Chloride 105 mmol/L (98-107); Glucose 115 mg/dL (74-99); Magnesium 2.3 mg/dL (1.6-2.3); Non-African American GFR(CKD) >90 (>60 ml/min/1.73 sqM); Potassium 4.8 mmol/L (3.5-5.1); Sodium 137 mmol/L (137-145); Total Bilirubin 0.8 mg/dL (0.2-1.3); Total Protein 5.2 g/dL (6.3-8.2)
[2019-06-20 04:54] LABS: Glucose,Whole Blood 131 mg/dL (75-99)
[2019-06-20] MEDS: CALCIUM GLUCONATE 2 GM in SODIUM CHLORIDE 0.9% 100 ML IVPB PRN ×2 (05:13→06:10)
[2019-06-20] MEDS: KETOROLAC 30 MG/ML 1 ML VIAL IVP SCH ×3 (05:20→17:44)
[2019-06-20 06:06] LABS: Glucose,Whole Blood 116 mg/dL (75-99)
[2019-06-20 06:57] LABS: Glucose,Whole Blood 136 mg/dL (75-99)
[2019-06-20] MEDS: ONDANSETRON 4 MG/2 ML VIAL IVP PRN (06:58)
--- NOTE | 2019-06-20 07:24 | XR ---
EXAMINATION TYPE: XR chest 1V portable DATE OF EXAM: 06/20/2019 COMPARISON: 06/19/2019 HISTORY: Post cardiac surgery TECHNIQUE: Single frontal view of the chest is obtained. FINDINGS: There is been interval removal of the enteric and endotracheal tubes. Pfeifer-Juan catheter i s seen terminating in the pulmonary outflow tract. Mediastinal drains are again present. Post CABG ch anges the chest. Left thoracostomy tube similar in position. Scattered areas of platelike atelectasis within the lungs. Enlarged cardiomediastinal silhouette. No residual pneumothorax seen. No pleural e ffusion. IMPRESSION: Removal of the enteric and endotracheal tubes. Remaining lines and tubes are stable. No residual pneumothorax. Scattered subsegmental atelectasis.
[2019-06-20] MEDS: hydrALAZINE HCL 20 MG/ML 1 ML VIAL IVP PRN (08:04)
[2019-06-20] MEDS: CLOPIDOGREL 75 MG TAB PO SCH (08:06)
[2019-06-20] MEDS: ASPIRIN 325 MG TAB PO SCH (08:06)
[2019-06-20] MEDS: CHOLECALCIFEROL 1,000 UNIT TAB PO SCH (08:06)
[2019-06-20] MEDS: ATORVASTATIN 40 MG TAB PO SCH (08:06)
[2019-06-20] MEDS: MULTIVITAMINS, THERA 1 EACH TAB PO SCH (08:06)
[2019-06-20] MEDS: MUPIROCIN 2% OINT 22 GM TUBE NASAL SCH ×2 (08:08→20:42)
[2019-06-20] MEDS: HYDROcodone/APAP 5-325MG 1 EACH TAB PO PRN ×3 (08:10→20:41)
[2019-06-20 08:16] LABS: Glucose,Whole Blood 156 mg/dL (75-99)
--- NOTE | 2019-06-20 08:47 | CONS ---
CONSULTATION Mr. Low is a 68-year-old male who presented to undergo coronary artery bypass grafting that was done yesterday by Dr. Wolff. He has a known history of coronary artery disease status, status post angioplasty and stenting of his right coronary artery in 2000 and subsequently 2002 who recently has been complaining of exertional chest discomfort and had an abnormal myocardial perfusion imaging. Subsequently, he underwent cardiac catheterization on 11 of June and was found to have a severe triple-vessel coronary artery disease with totally occluded LAD and right coronary artery and critical stenosis in the distal left circumflex with moderately impaired left ventricular systolic function which has worsened compared with the past. He underwent coronary artery bypass grafting yesterday by Dr. Wolff and received a BLACKBURN to the LAD, saphenous vein graft to diagonal branch, saphenous vein graft to the obtuse marginal branch into the PDA with closure of the left atrial appendage. He is extubated, sitting up in the chair, has no significant chest pain. On the monitor, there is ST elevation. The patient denies any dizziness or palpitation. He has mild nausea, but no vomiting. His coronary risk factors are remarkable for hypertension, hyperlipidemia, and diabetes as well as a family history of premature coronary artery disease. MEDICATION: His medications prior to admission included metformin, metoprolol tartrate 25 mg twice a day, Vasotec 20 mg daily, Lipitor 40 mg daily, aspirin once a day, and vitamin D. REVIEW OF SYSTEMS: RESPIRATORY SYSTEM: He had dyspnea on exertion. No history of significant wheezing or cough. GI SYSTEM: He had no prior history of GI bleeding. No nausea. No vomiting SYSTEM: No dysuria or hematuria. NERVOUS SYSTEM: No stroke or seizure. PHYSICAL EXAMINATION: He is a 68-year-old male, alert, oriented, in no apparent distress. He was sitting up in the chair. Blood pressure 113/45 with the heart rate in the 70s. HEAD: Normocephalic. EYES: Sclerae anicteric. NECK: Good upstroke. No bruit. Alda-Juan catheter was noted in the right internal jugular. LUNGS: With mild decrease in breath sounds at the bases. No wheezes. HEART: Regular rate and rhythm. S1, S2. No S3. No significant rub appreciated. ABDOMEN: Soft, nontender. Positive bowel sounds. No organomegaly. EXTREMITIES: No edema. LAB DATA: Lab data revealed BUN and creatinine 19 and 0.78, hemoglobin of 9.1. His chest x-ray shows mild congestion with no pneumothorax. EKG revealed a sinus mechanism with ST elevation appears to be generalized, more noted in the inferior leads. IMPRESSION: 1. Status post coronary artery bypass grafting. 2. Ischemic cardiomyopathy. 3. ST-elevation could represent myocarditis. Patient not having significant discomfort at this time. The possibility of graft closure cannot be totally excluded. 4. History of hypertension. 5. Hyperlipidemia. 6. Diabetes mellitus. RECOMMENDATION: From the cardiac standpoint, will continue present therapy. We will continue to follow his EKG and depending on his progress, further recommendation will be made. MMRADHAL / KENTRELLN: [id number] /
[2019-06-20] MEDS: IPRATROPIUM-ALBUTEROL 3 ML NEB INHALATION SCH ×4 (08:53→19:50)
[2019-06-20] MEDS ORDERED: METOPROLOL TARTRATE 12.5 MG TAB PO SCH (09:00)
[2019-06-20] MEDS ORDERED: BISACODYL 10 MG SUPP RECTAL PRN (09:00)
[2019-06-20] MEDS ORDERED: MAGNESIUM HYDROXIDE 2,400 MG/10 ML CUP PO PRN (09:00)
[2019-06-20] MEDS ORDERED: PANTOPRAZOLE 40 MG/10 ML VIAL IVP SCH (09:00)
[2019-06-20] MEDS ORDERED: METOPROLOL TARTRATE 25 MG TAB PO SCH (09:00)
--- NOTE | 2019-06-20 09:01 | P.CNPUL ---
History of Present Illness Consult date: 06/20/19 Requesting physician: Jamel Wolff Reason for consult: dyspnea Chief complaint: Shortness of breath, multivessel coronary artery disease History of present illness: 68-year-old white male patient of Dr. Prieto, with past medical history of hypertension, dyslipidemia, coronary artery disease with previous stent placement to the RCA in 2000 and in 2002, [id number] diabetes mellitus type 2, family history of coronary artery disease, psoriasis, who was having symptoms of shortness of breath with exertion especially in the cold weather. No complaints of chest pain, no orthopnea, syncope or palpitations. Patient had outpatient evaluation with a 2-D echocardiogram [facility] through 2019 which showed ejection fraction of 45%, mild mitral valve regurgitation, mild aortic valve regurgitation and mild tricuspid valve regurgitation. Lexiscan Cardiolite stress test showed abnormal myocardial perfusion, with evidence of prior myocardial infarction involving the apex, inferior wall and inferior septal wall. Cardiac catheterization was completed on 2019, which demonstrated 30-40% stenosis to his proximal LAD, 99% stenosis to his mid LAD, and 90% stenosis to his circumflex coronary artery and 80% stenosis to his proximal segment of the RCA with a total stent occlusion in the mid segment of the distal RCA. Left ventriculogram showed EF of 40%. Patient is a lifetime nonsmoker, his preop spirometry showed FEV1 of 3.05 L or 85% of predicted, an FVC of 3.57 or 74% of predicted, showing mild restriction. Surgical revascularization was recommended and on 06/19/2019 patient underwent four-vessel bypass grafting by Dr. Wolff with BLACKBURN to LAD, SVG to the diagonal, SVG to the PDA, and SVG to the OM, exclusion of the left atrial appendage. Today is postoperative day 1, patient was extubated before 4 hours of the OR exit time. Intraoperatively patient received 650 mL of Cell Saver, 2500 mL and crystalloids, no blood products, and 750 mL and 5% albumin. This morning he seen in the intensive care unit, he is he is a bit somnolent, but arousable, a nswering questions appropriately, he states a little fatigued, but no acute distress, noncompressive shortness of breath, his pain is under good control. He is on 2 L of oxygen with a pulse ox of 95%, hemodynamically stable, lactated Ringer's infusing at a rate of 50 ML per hour, nitroglycerin is at 10 mics per kilo per minute, insulin drip is at 1.5 units per hour. In sinus mechanism with a controlled rate, cardiac output is 5.7, cardiac index is 2.6, CVP is 6, PA pressures of 23/11. Left pleural chest tube is in place with a total of 70 mL of serosanguineous output since his surgery, 2 mediastinal chest tubes with a total of 500 mL of serosanguineous output, no air leak noted. Review of Systems All systems: negative Constitutional: Denies chills, Denies fever Eyes: denies blurred vision, denies pain Ears, nose, mouth and throat: Denies headache, Denies sore throat Cardiovascular: Denies chest pain, Denies shortness of breath Respiratory: Reports dyspnea, Denies cough Gastrointestinal: Denies abdominal pain, Denies diarrhea, Denies nausea, Denies vomiting Musculoskeletal: Denies myalgias Integumentary: Denies pruritus, Denies rash Neurological: Denies numbness, Denies weakness Psychiatric: Denies anxiety, Denies depression Endocrine: Denies fatigue, Denies weight change Past Medical History Past Medical History: Coronary Artery Disease (CAD), Diabetes Mellitus, Hyperlipidemia, Hypertension, Myocardial Infarction (PR), Skin Disorder Additional Past Medical History / Comment(s): PR x2, ongoing respiratory "thing"-drs not sure what, hx psoriasis, Last Myocardial Infarction Date:: unknown History of Any Multi-Drug Resistant Organisms: None Reported Past Surgical History: Adenoidectomy, Back Surgery, Heart Catheterization, Heart Catheterization With Stent, Joint Replacement, Tonsillectomy Additional Past Surgical History / Comment(s): heart stents x 3, roni knee replacement, surgery for undescended testicle, roni cataracts, hemorrhoidectomy, lower back surgery Past Anesthesia/Blood Transfusion Reactions: Motion Sickness, Postoperative Nausea & Vomiting (PONV) Additional Past Anesthesia/Blood Transfusion Reaction / Comment(s): severe PONV with general anesthesia Date of Last Stent Placement:: 2000 and 2002 to his RCA Smoking Status: Never smoker - Past Family History Mother Family Medical History: Dementia Additional Family Medical History / Comment(s): Past awake at age 83 from complications of influenza Father Family Medical History: Myocardial Infarction (PR) Medications and Allergies Home Medications Medication Instructions Recorded Confirmed Type Aspirin EC [Ecotrin] 81 mg PO DAILY 01/10/14 06/19/19 History Enalapril [Vasotec] 20 mg PO QAM 01/10/14 06/19/19 History Metoprolol Tartrate [Lopressor] 25 mg PO BID 01/10/14 06/19/19 History Atorvastatin [Lipitor] 40 mg PO HS 08/09/18 06/19/19 History Cholecalciferol [Vitamin D3] 4,000 unit PO DAILY 08/09/18 06/19/19 History Multivit-Min/FA/Lycopen/Lutein 1 each PO DAILY 08/09/18 06/19/19 History [Centrum Silver Men Tablet] metFORMIN HCL 500 mg PO BID 08/09/18 06/19/19 History Allergies Allergy/AdvReac Type Severity Reaction Status Date / Time fenofibrate nanocrystallized AdvReac Unknown MUSCLE Verified 06/19/19 07:11 [From Tricor] SPASMS, BLACKED OUT fenofibrate,micronized AdvReac Unknown MUSCLE Verified 06/19/19 07:11 [From Tricor] SPASMS, BLACKED OUT Physical Exam Vitals: Vital Signs Temp Pulse Resp BP Pulse Ox 06/20/19 07:00 74 19 99/60 96 06/20/19 06:30 74 20 96 06/20/19 06:00 78 21 95 06/20/19 05:30 98 06/20/19 05:00 75 16 98 06/20/19 04:30 75 13 98 06/20/19 04:00 75 14 99 06/20/19 03:30 77 18 99 06/20/19 03:00 76 11 L 98 06/20/19 02:30 79 17 97 06/20/19 02:00 75 13 98 06/20/19 01:30 77 15 97 06/20/19 01:00 79 16 96 06/20/19 00:38 80 12 96 06/20/19 00:30 81 11 L 97 06/20/19 00:00 81 12 96 06/19/19 23:30 89 18 97 06/19/19 23:00 82 28 H 97 06/19/19 22:30 79 11 L 97 06/19/19 22:00 79 14 97 06/19/19 21:30 80 16 96 06/19/19 21:00 80 12 96 06/19/19 20:30 82 14 97 06/19/19 20:24 83 12 06/19/19 20:11 71 12 06/19/19 20:00 80 21 96 06/19/19 19:30 80 19 97 06/19/19 19:00 98.2 F 80 23 93/57 98 06/19/19 18:50 82 17 115/60 97 06/19/19 18:40 90 20 115/60 97 06/19/19 18:30 40 H 115/60 97 06/19/19 18:20 91 19 115/60 96 06/19/19 18:10 86 17 115/60 97 06/19/19 18:00 88 17 112/61 97 06/19/19 17:50 90 19 112/61 97 06/19/19 17:40 93 45 H 112/61 97 06/19/19 17:30 85 18 112/61 96 06/19/19 17:21 85 16 06/19/19 17:20 39 H 122/78 97 06/19/19 17:10 84 16 122/78 99 06/19/19 17:09 85 24 06/19/19 17:00 95.7 F L 78 14 122/78 100 06/19/19 16:50 76 14 122/78 100 06/19/19 16:40 71 14 110/72 100 06/19/19 16:30 70 12 110/72 100 06/19/19 16:20 10 L 110/72 100 06/19/19 16:10 70 8 L 110/72 100 06/19/19 16:00 95.4 F L 33 H 97 06/19/19 15:50 95.4 F L 73 10 L 98 06/19/19 15:40 77 17 06/19/19 15:39 21 Intake and Output 06/19/19 06/20/19 06/20/19 22:59 06:59 14:59 Intake Total 1807.254 864.537 59 Output Total 3001 564 25 Balance -1193.746 300.537 34 Intake: IV 1062 703 59 ACETAMINOPHEN IV (For NPO 100 ) 1,000 mg In Empty Bag 1 bag @ 400 mls/hr IVPB Q6HR [facility] Rx#:[id number] Albumin Human 5% 250 ml 750 In Empty Bag 1 bag @ 250 mls/hr IVPB Q1HR PRN Rx#: [id number] CO/CI 40 40 Calcium Gluconate 2 gm In 100 Sodium Chloride 0.9% 100 ml @ 100 mls/hr IVPB ONCE PRN Rx#:[id number] Lactated Ringers 1,000 ml 200 350 50 @ 20 mls/hr IV .Q24H [facility] Rx#:[id number] Normal Saline pressure 72 63 9 Bag ceFAZolin 2 gm In Sodium 50 Chloride 0.9% 50 ml @ 100 mls/hr IVPB Q8H [facility] Rx#: [id number] Intake, IV Titration 745.254 61.537 Amount ACETAMINOPHEN IV (For NPO 100 ) 1,000 mg In Empty Bag 1 bag @ 400 mls/hr IVPB Q6HR [facility] Rx#:[id number] Albumin Human 5% 250 ml 250 In Empty Bag 1 bag @ 250 mls/hr IVPB Q1HR PRN Rx#: [id number] Clevidipine Butyrate 25 22.682 mg In Empty Bag 1 bag @ 1 MG/HR 2 mls/hr IV .Q24H [facility] Rx#:[id number] Dexmedetomidine/0.9% NaCl 26.671 48.870 (Pmx) 400 mcg In Empty Bag 1 bag @ Titrate IV . Q0M [facility] Rx#:[id number] Insulin Regular 100 unit 8.366 12.667 In Sodium Chloride 0.9% 100 ml @ Per Protocol IV .Q0M [facility] Rx#:[id number] Lactated Ringers 1,000 ml 200 @ 20 mls/hr IV .Q24H [facility] Rx#:[id number] Nitroglycerin-D5w Pmx 50 5 mg In Dextrose/Water 1 250ml.bag @ 10 MCG/MIN 3 mls/hr IV .Q24H [facility] Rx#: [id number] Propofol 1,000 mg In 32.535 Empty Bag 1 bag @ Titrate IV .Q0M [facility] Rx#: [id number] ceFAZolin 2 gm In Sodium 100 Chloride 0.9% 50 ml @ 100 mls/hr IVPB Q8H [facility] Rx#: [id number] Oral 100 Output: Chest Tube Drainage 301 194 0 Left Pleural 38 24 0 Mediastinal X 2 263 170 0 Urine 1500 370 25 Estimated Blood Loss 1200 Other: Voiding Method Indwelling Catheter Indwelling Catheter Weight 102.7 kg ABP, PAP, CO, CI - Last 8 Hours Arterial Blood Pressure 113/45 Arterial Blood Pressure 111/46 Arterial Blood Pressure 116/49 Arterial Blood Pressure 117/52 Arterial Blood Pressure 103/46 Arterial Blood Pressure 106/46 Arterial Blood Pressure 102/49 Arterial Blood Pressure 103/46 Arterial Blood Pressure 104/46 Arterial Blood Pressure 104/47 Arterial Blood Pressure 115/51 Arterial Blood Pressure 101/46 Arterial Blood Pressure 102/49 Pulmonary Artery Pressure 18/10 Pulmonary Artery Pressure 19/10 Pulmonary Artery Pressure 20/13 Pulmonary Artery Pressure 23/13 Pulmonary Artery Pressure 20/13 Pulmonary Artery Pressure 18/11 Pulmonary Artery Pressure 22/12 Pulmonary Artery Pressure 20/10 Pulmonary Artery Pressure 23/13 Pulmonary Artery Pressure 20/12 Pulmonary Artery Pressure 22/12 Pulmonary Artery Pressure 22/14 Pulmonary Artery Pressure 24/11 Cardiac Output 5.7 Cardiac Output 6.2 Cardiac Output 6.2 Cardiac Index 2.6 Cardiac Index 2.8 Cardiac Index 2.8 GENERAL EXAM: Alert, very pleasant, 68-year-old white male, 2 L of oxygen, with a pulse ox of 96%, sitting up in the recliner comfortable in no apparent distress. HEAD: Normocephalic/atraumatic. EYES: Normal reaction of pupils, equal size. Conjunctiva pink, sclera white. NOSE: Clear with pink turbinates. THROAT: No erythema or exudates. NECK: No masses, no JVD, no thyroid enlargement, no adenopathy. CHEST: No chest wall deformity. Symmetrical expansion. Midsternal incision is clean dry and intact, covered with surgical dressing, 2 mediastinal and left pleural chest tubes are in place, connected to Pleur-evac, and there is a total of 70 out of the LP, and a total of 500 mL of serosanguineous output in the mediastinal chest tubes 2, LUNGS: Equal air entry with no crackles, wheeze, rhonchi or dullness. CVS: Regular rate and rhythm, normal S1 and S2, no gallops, no murmurs, no rubs. Transit rhythm is sinus rhythm in the 70s ABDOMEN: Soft, nontender. No hepatosplenomegaly, normal bowel sounds, no guarding or rigidity. EXTREMITIES: No clubbing, no edema, no cyanosis, 2+ pulses and upper and lower extremities. SCDs are in place MUSCULOSKELETAL: Muscle strength and tone normal. SPINE: No scoliosis or deformity SKIN: No rashes, right leg incision clean dry and intact, CENTRAL NERVOUS SYSTEM: Alert and oriented -3. No focal deficits, tone is normal in all 4 extremities. PSYCHIATRIC: Alert and oriented -3. Appropriate affect. Intact judgment and insight. Results - Laboratory Findings CBC and BMP: 06/20/19 04:00 06/20/19 04:00 ABG ABG pH 7.38 (7.35-7.45) 06/19/19 19:02 ABG pCO2 41 mmHg (35-45) 06/19/19 19:02 ABG pO2 158 mmHg (83-108) H 06/19/19 19:02 ABG O2 Saturation 99.3 % (94-97) H 06/19/19 19:02 Abnormal lab findings: Abnormal Labs 06/11/19 06/19/19 06/19/19 10:45 07:08 09:32 WBC RBC Hgb Hct Plt Count Neutrophils # Lymphocytes # APTT ABG pH ABG pCO2 ABG pO2 203 H ABG HCO3 26 H ABG Total CO2 28 H ABG O2 Saturation 99.5 H ABG Hematocrit ABG Sodium ABG Potassium 4.6 H ABG Ionized Calcium ABG Glucose 112 H ABG Lactic Acid Hemoglobin Glucose POC Glucose (mg/dL) 119 H Calcium Ionized Calcium Eliane Magnesium Total Protein Albumin Arterial Blood Potassium 4.6 H Arterial Blood Glucose 112 H Crossmatch See Detail 06/19/19 06/19/19 06/19/19 10:37 11:27 12:11 WBC RBC Hgb Hct Plt Count Neutrophils # Lymphocytes # APTT ABG pH 7.30 L ABG pCO2 52 H ABG pO2 283 H 381 H 304 H ABG HCO3 26 H 28 H ABG Total CO2 27 H 25 H 29 H ABG O2 Saturation 99.6 H 99.9 H 99.7 H ABG Hematocrit 32 L ABG Sodium 133 L ABG Potassium 4.6 H 4.8 H ABG Ionized Calcium 4.3 L 4.4 L ABG Glucose 157 H 140 H 213 H ABG Lactic Acid Hemoglobin 10.9 L 10.4 L Glucose POC Glucose (mg/dL) Calcium Ionized Calcium Eliane Magnesium Total Protein Albumin Arterial Blood Potassium 4.6 H 4.8 H Arterial Blood Glucose 157 H 140 H 213 H Crossmatch 06/19/19 06/19/19 06/19/19 12:38 13:13 15:55 WBC RBC 3.17 L Hgb 9.9 L D Hct 28.6 L Plt Count 90 L D Neutrophils # Lymphocytes # APTT ABG pH ABG pCO2 ABG pO2 349 H 355 H ABG HCO3 26 H ABG Total CO2 28 H 26 H ABG O2 Saturation 100.0 H 99.7 H ABG Hematocrit 30 L 30 L ABG Sodium 134 L ABG Potassium 4.9 H 4.6 H ABG Ionized Calcium 4.3 L 4.3 L ABG Glucose 269 H 224 H ABG Lactic Acid 1.8 H 2.5 H* Hemoglobin 9.8 L 9.7 L Glucose POC Glucose (mg/dL) Calcium Ionized Calcium Eliane Magnesium Total Protein Albumin Arterial Blood Potassium 4.9 H 4.6 H Arterial Blood Glucose 269 H 224 H Crossmatch 06/19/19 06/19/19 06/19/19 15:55 15:55 16:08 WBC RBC Hgb Hct Plt Count Neutrophils # Lymphocytes # APTT 30.4 H ABG pH ABG pCO2 46 H ABG pO2 >400 H ABG HCO3 26 H ABG Total CO2 27 H ABG O2 Saturation 99.9 H ABG Hematocrit ABG Sodium ABG Potassium ABG Ionized Calcium ABG Glucose ABG Lactic Acid Hemoglobin Glucose POC Glucose (mg/dL) Calcium 8.0 L Ionized Calcium Eliane Magnesium 2.8 H Total Protein 5.0 L Albumin 3.4 L Arterial Blood Potassium Arterial Blood Glucose Crossmatch 06/19/19 06/19/19 06/19/19 16:18 16:38 17:13 WBC RBC Hgb Hct Plt Count Neutrophils # Lymphocytes # APTT ABG pH ABG pCO2 ABG pO2 ABG HCO3 ABG Total CO2 ABG O2 Saturation ABG Hematocrit ABG Sodium ABG Potassium ABG Ionized Calcium ABG Glucose ABG Lactic Acid Hemoglobin Glucose POC Glucose (mg/dL) 69 L 178 H 140 H Calcium Ionized Calcium Eliane Magnesium Total Protein Albumin Arterial Blood Potassium Arterial Blood Glucose Crossmatch 06/19/19 06/19/19 06/19/19 17:52 18:17 19:02 WBC 11.9 H RBC 3.72 L Hgb 11.6 L Hct 34.1 L Plt Count 122 L Neutrophils # 9.4 H Lymphocytes # APTT ABG pH ABG pCO2 ABG pO2 158 H ABG HCO3 ABG Total CO2 25 H ABG O2 Saturation 99.3 H ABG Hematocrit ABG Sodium ABG Potassium ABG Ionized Calcium ABG Glucose ABG Lactic Acid Hemoglobin Glucose POC Glucose (mg/dL) 144 H Calcium Ionized Calcium Eliane Magnesium Total Protein Albumin Arterial Blood Potassium Arterial Blood Glucose Crossmatch 06/19/19 06/19/19 06/19/19 19:04 19:53 20:51 WBC RBC Hgb Hct Plt Count Neutrophils # Lymphocytes # APTT ABG pH ABG pCO2 ABG pO2 ABG HCO3 ABG Total CO2 ABG O2 Saturation ABG Hematocrit ABG Sodium ABG Potassium ABG Ionized Calcium ABG Glucose ABG Lactic Acid Hemoglobin Glucose POC Glucose (mg/dL) 146 H 152 H 131 H Calcium Ionized Calcium Eliane Magnesium Total Protein Albumin Arterial Blood Potassium Arterial Blood Glucose Crossmatch 06/19/19 06/19/19 06/19/19 20:52 21:51 22:52 WBC RBC 2.92 L Hgb 9.1 L D Hct 26.8 L Plt Count 79 L Neutrophils # Lymphocytes # 0.3 L APTT ABG pH ABG pCO2 ABG pO2 ABG HCO3 ABG Total CO2 ABG O2 Saturation ABG Hematocrit ABG Sodium ABG Potassium ABG Ionized Calcium ABG Glucose ABG Lactic Acid Hemoglobin Glucose POC Glucose (mg/dL) 132 H 135 H Calcium Ionized Calcium Eliane Magnesium Total Protein Albumin Arterial Blood Potassium Arterial Blood Glucose Crossmatch 06/20/19 06/20/19 06/20/19 00:00 01:00 02:23 WBC RBC Hgb Hct Plt Count Neutrophils # Lymphocytes # APTT ABG pH ABG pCO2 ABG pO2 ABG HCO3 ABG Total CO2 ABG O2 Saturation ABG Hematocrit ABG Sodium ABG Potassium ABG Ionized Calcium ABG Glucose ABG Lactic Acid Hemoglobin Glucose POC Glucose (mg/dL) 122 H 122 H 123 H Calcium Ionized Calcium Eliane Magnesium Total Protein Albumin Arterial Blood Potassium Arterial Blood Glucose Crossmatch 06/20/19 06/20/19 06/20/19 03:20 04:00 04:00 WBC RBC 2.91 L Hgb 9.1 L Hct 26.8 L Plt Count 77 L Neutrophils # Lymphocytes # 0.6 L APTT ABG pH ABG pCO2 ABG pO2 ABG HCO3 ABG Total CO2 ABG O2 Saturation ABG Hematocrit ABG Sodium ABG Potassium ABG Ionized Calcium ABG Glucose ABG Lactic Acid Hemoglobin Glucose 115 H POC Glucose (mg/dL) 132 H Calcium 8.0 L Ionized Calcium Eliane 4.4 L Magnesium Total Protein 5.2 L Albumin 3.4 L Arterial Blood Potassium Arterial Blood Glucose Crossmatch 06/20/19 06/20/19 06/20/19 04:01 04:52 06:04 WBC RBC Hgb Hct Plt Count Neutrophils # Lymphocytes # APTT ABG pH ABG pCO2 ABG pO2 ABG HCO3 ABG Total CO2 ABG O2 Saturation ABG Hematocrit ABG Sodium ABG Potassium ABG Ionized Calcium ABG Glucose ABG Lactic Acid Hemoglobin Glucose POC Glucose (mg/dL) 134 H 131 H 116 H Calcium Ionized Calcium Eliane Magnesium Total Protein Albumin Arterial Blood Potassium Arterial Blood Glucose Crossmatch 06/20/19 06/20/19 06:56 08:14 WBC RBC Hgb Hct Plt Count Neutrophils # Lymphocytes # APTT ABG pH ABG pCO2 ABG pO2 ABG HCO3 ABG Total CO2 ABG O2 Saturation ABG Hematocrit ABG Sodium ABG Potassium ABG Ionized Calcium ABG Glucose ABG Lactic Acid Hemoglobin Glucose POC Glucose (mg/dL) 136 H 156 H Calcium Ionized Calcium Eliane Magnesium Total Protein Albumin Arterial Blood Potassium Arterial Blood Glucose Crossmatch - Diagnostic Findings Chest x-ray: report reviewed, image reviewed Assessment and Plan Plan: Assessment: #1. Multivessel coronary artery disease, status post four-vessel bypass grafting, with BLACKBURN to LAD, SVG to the diagonal, SVG to the PDA, SVG to the OM, and left atrial appendage exclusion, postoperative day 1 #2. Routine ventilator management, patient was successfully extubated in less than 4 hours of the OR exit time of 1535, on 06/19/2019, extubated at 1928 on 06/19/2019 #3. Postoperative blood loss anemia, normal outcome of bypass grafting surgery, has not required transfusion #4. History of coronary artery disease with previous stent placement to the RCA in 2000 in 2002 #5. Diabetes mellitus type 2 #6. Hypertension #7. Dyslipidemia #8. Never smoker Plan: Hemodynamic patient remains stable, no complaints of some breath, his pain is under good control, encourage incentive spirometry use, his chest x-ray has been reviewed showing scattered subsegmental atelectasis. Patient was extubated and under 4 hours of the OR exit time, tolerating extubation very well. CT surgery is planning on removing the patient's PA catheter. Increase activity as tolerated. Daily lab work and daily chest x-rays, continue close monitoring in the intensive care unit today. Continue breathing treatments. We'll follow I performed a history & physical examination of the patient and discussed their management with my nurse practitioner, Pamela Melendez. I reviewed the nurse practitioner's note and agree with the documented findings and plan of care. Lung sounds are positive for diminished breath sounds. The findings and the impression was discussed with the patient. I attest to the documentation by the nurse practitioner. Time with Patient: Greater than 30
[2019-06-20 09:22] LABS: Glucose,Whole Blood 195 mg/dL (75-99)
[2019-06-20] MEDS: HEPARIN SODIUM,PORCINE 5,000 UNIT/ML 1 ML VIAL SQ SCH ×2 (09:22→16:11)
[2019-06-20 10:18] LABS: Glucose,Whole Blood 158 mg/dL (75-99)
[2019-06-20] MEDS: METOPROLOL TARTRATE 12.5 MG TAB PO SCH ×2 (10:24→20:42)
[2019-06-20] MEDS: LACTATED RINGERS 1,000 ML IV SCH (11:05)
--- NOTE | 2019-06-20 11:15 | P.PN ---
Subjective Progress Note Date: 06/20/19 Principal diagnosis: Coronary artery disease. Previous medical history of coronary artery disease and previous myocardial infarction with stent placement in 2000 and 2002 to the RCA, ischemic cardiomyopathy with EF 40-45%, hypertension, hyperlipidemia, diabetes mellitus with preoperative hemoglobin A1c 5.3%, and family history of premature coronary artery disease. POD #1 coronary artery bypass grafting 4 vessels, left internal mammary artery to the left anterior descending artery, reverse saphenous vein graft to the diagonal artery, reverse saphenous vein graft to posterior descending artery, reverse saphenous vein graft to the obtuse marginal artery, endoscopic harves ting of the right greater saphenous vein, epi-aortic ultrasound, intraoperative transesophageal echocardiogram, ligation of left atrial appendage using a 35 mm AtriCure clip Postoperative acute blood loss anemia, expected outcome of surgery due to hemodilution and cardiopulmonary bypass pump The patient is currently sitting up in a recliner in the intensive care unit in no acute distress. Was successfully extubated last night it 19:28. Complains of postsurgical type pain which is controlled on current medication regimen, denies shortness of breath. Currently in normal sinus rhythm, remains hemodynamically stable on no inotropes or pressors. The patient did develop some ST elevation last night without chest pain, IV nitro was increased, EKG reviewed this morning with Dr. Mari. Objective - Vital Signs Vital signs: Vital Signs Temp 98.2 F 06/19/19 19:00 Pulse 74 06/20/19 07:00 Resp 19 06/20/19 07:00 BP 99/60 06/20/19 07:00 Pulse Ox 96 06/20/19 07:00 Intake & Output 06/19/19 06/20/19 06/20/19 18:59 06:59 18:59 Intake Total 402.462 0772.191 65.901 Output Total 2646 919 25 Balance -2183.400 1353.191 40.901 Weight 96.4 kg 102.7 kg Intake: IV 90 1738 59 ACETAMINOPHEN IV (For NPO 100 ) 1,000 mg In Empty Bag 1 bag @ 400 mls/hr IVPB Q6HR JOANNE Rx#:[id number] Albumin Human 5% 250 ml 750 In Empty Bag 1 bag @ 250 mls/hr IVPB Q1HR PRN Rx#: [id number] CO/CI 80 Calcium Gluconate 2 gm In 100 Sodium Chloride 0.9% 100 ml @ 100 mls/hr IVPB ONCE PRN Rx#:[id number] Lactated Ringers 1,000 ml 550 50 @ 20 mls/hr IV .Q24H JOANNE Rx#:[id number] Normal Saline pressure 27 108 9 Bag ceFAZolin 2 gm In Sodium 50 Chloride 0.9% 50 ml @ 100 mls/hr IVPB Q8H JOANNE Rx#: [id number] Intake, IV Titration 372.600 434.191 6.901 Amount ACETAMINOPHEN IV (For NPO 100 ) 1,000 mg In Empty Bag 1 bag @ 400 mls/hr IVPB Q6HR JOANNE Rx#:[id number] Albumin Human 5% 250 ml 250 In Empty Bag 1 bag @ 250 mls/hr IVPB Q1HR PRN Rx#: [id number] Clevidipine Butyrate 25 22.682 mg In Empty Bag 1 bag @ 1 MG/HR 2 mls/hr IV .Q24H JOANNE Rx#:[id number] Dexmedetomidine/0.9% NaCl 10.203 65.338 (Pmx) 400 mcg In Empty Bag 1 bag @ Titrate IV . Q0M JOANNE Rx#:[id number] Insulin Regular 100 unit 2.180 18.853 6.901 In Sodium Chloride 0.9% 100 ml @ Per Protocol IV .Q0M JOANNE Rx#:[id number] Lactated Ringers 1,000 ml 150 50 @ 20 mls/hr IV .Q24H JOANNE Rx#:[id number] Nitroglycerin-D5w Pmx 50 5 0 mg In Dextrose/Water 1 250ml.bag @ 10 MCG/MIN 3 mls/hr IV .Q24H JOANNE Rx#: [id number] Propofol 1,000 mg In 32.535 Empty Bag 1 bag @ Titrate IV .Q0M JOANNE Rx#: [id number] ceFAZolin 2 gm In Sodium 50 50 Chloride 0.9% 50 ml @ 100 mls/hr IVPB Q8H JOANNE Rx#: [id number] Oral 100 Output: Chest Tube Drainage 201 294 0 Left Pleural 18 44 0 Mediastinal X 2 183 250 0 Urine 1245 625 25 Estimated Blood Loss 1200 Other: Voiding Method Indwelling Catheter Indwelling Catheter ABP, PAP, CO, CI - Last Documented Arterial Blood Pressure 113/45 Pulmonary Artery Pressure 18/10 Cardiac Output 5.7 Cardiac Index 2.6 - Constitutional General appearance: Present: cooperative, no acute distress - Respiratory Details: Lungs sounds diminished bilaterally. Respirations even, nonlabored. Currently on 2 L nasal cannula with oxygen saturation 95%. Able to achieve 1250 mL on his incentive spirometry. Strong cough. Mediastinal chest tubes present to continuous wall suction, 180 mL serosanguineous drainage overnight, 500 mL since surgery, no air leak present. Left pleural chest tube to continuous wall suction, 27 mL serosanguineous drainage overnight, 70 mL since surgery, no air leak present. - Cardiovascular Details: S1, S2 present. Regular rate and rhythm, sinus rhythm on telemetry. Sternum stable. A/V epicardial pacemaker wires present, grounded. Palpable peripheral pulses bilaterally. No edema present. No calf pain or tenderness noted. Right internal jugular [place]/Cordis, right radial arterial line present. Last CO/CI 5.7/2.6 on no inotropes or pressors. Heart hugger in place with patient demonstrating appropriate use. Antiembolism stockings, SCDs present. - Gastrointestinal Gastrointestinal Comment(s): Abdomen soft, nontender, nondistended. Active bowel sounds present 4 quadrants. Tolerating clear liquids. Positive belching, negative flatus - Genitourinary Genitourinary Comment(s): Levy present draining clear, yellow urine. Output overnight 35-70 mL per hour - Integumentary Integumentary Comment(s): Skin is warm dry with evidence of good perfusion. Anterior chest incision well approximated covered with dry intact dressing. Right lower extremity EVH site well approximated - Neurologic Neurologic: Present: CNII-XII intact - Musculoskeletal Musculoskeletal: Present: gait normal, strength equal bilaterally - Psychiatric Psychiatric: Present: A&O x's 3, appropriate affect, intact judgment & insight - Allied health notes Allied health notes reviewed: nursing - Labs CBC & Chem 7: 06/20/19 04:00 06/20/19 04:00 Labs: Abnormal Lab Results - Last 24 Hours (Table) 06/11/19 06/19/19 06/19/19 Range/Units 10:45 09:32 10:37 WBC (3.8-10.6) k/uL RBC (4.30-5.90) m/uL Hgb (13.0-17.5) gm/dL Hct (39.0-53.0) % Plt Count (150-450) k/uL Neutrophils # (1.3-7.7) k/uL Lymphocytes # (1.0-4.8) k/uL APTT (22.0-30.0) sec ABG pH 7.30 L (7.35-7.45) ABG pCO2 52 H (35-45) mmHg ABG pO2 203 H 283 H (83-108) mmHg ABG HCO3 26 H 26 H (21-25) mmol/L ABG Total CO2 28 H 27 H (19-24) mmol/L ABG O2 Saturation 99.5 H 99.6 H (94-97) % ABG Hematocrit (34.0-46.0) % ABG Sodium (135-146) mmol/L ABG Potassium 4.6 H 4.6 H (3.4-4.5) mmol/L ABG Ionized Calcium (4.5-5.3) mg/dL ABG Glucose 112 H 157 H (75-99) mg/dL ABG Lactic Acid (0.5-1.6) mmol/L Hemoglobin (13.0-17.5) gm/dL Glucose (74-99) mg/dL POC Glucose (mg/dL) (75-99) mg/dL Calcium (8.4-10.2) mg/dL Ionized Calcium Eliane (4.5-5.3) mg/dL Magnesium (1.6-2.3) mg/dL Total Protein (6.3-8.2) g/dL Albumin (3.5-5.0) g/dL Arterial Blood Potassium 4.6 H 4.6 H (3.4-4.5) mmol/L Arterial Blood Glucose 112 H 157 H (75-99) mg/dL Crossmatch See Detail 06/19/19 06/19/19 06/19/19 Range/Units 11:27 12:11 12:38 WBC (3.8-10.6) k/uL RBC (4.30-5.90) m/uL Hgb (13.0-17.5) gm/dL Hct (39.0-53.0) % Plt Count (150-450) k/uL Neutrophils # (1.3-7.7) k/uL Lymphocytes # (1.0-4.8) k/uL APTT (22.0-30.0) sec ABG pH (7.35-7.45) ABG pCO2 (35-45) mmHg ABG pO2 381 H 304 H 349 H (83-108) mmHg ABG HCO3 28 H 26 H (21-25) mmol/L ABG Total CO2 25 H 29 H 28 H (19-24) mmol/L ABG O2 Saturation 99.9 H 99.7 H 100.0 H (94-97) % ABG Hematocrit 32 L 30 L (34.0-46.0) % ABG Sodium 133 L 134 L (135-146) mmol/L ABG Potassium 4.8 H 4.9 H (3.4-4.5) mmol/L ABG Ionized Calcium 4.3 L 4.4 L 4.3 L (4.5-5.3) mg/dL ABG Glucose 140 H 213 H 269 H (75-99) mg/dL ABG Lactic Acid 1.8 H (0.5-1.6) mmol/L Hemoglobin 10.9 L 10.4 L 9.8 L (13.0-17.5) gm/dL Glucose (74-99) mg/dL POC Glucose (mg/dL) (75-99) mg/dL Calcium (8.4-10.2) mg/dL Ionized Calcium Eliane (4.5-5.3) mg/dL Magnesium (1.6-2.3) mg/dL Total Protein (6.3-8.2) g/dL Albumin (3.5-5.0) g/dL Arterial Blood Potassium 4.8 H 4.9 H (3.4-4.5) mmol/L Arterial Blood Glucose 140 H 213 H 269 H (75-99) mg/dL Crossmatch 06/19/19 06/19/19 06/19/19 Range/Units 13:13 15:55 15:55 WBC (3.8-10.6) k/uL RBC 3.17 L (4.30-5.90) m/uL Hgb 9.9 L D (13.0-17.5) gm/dL Hct 28.6 L (39.0-53.0) % Plt Count 90 L D (150-450) k/uL Neutrophils # (1.3-7.7) k/uL Lymphocytes # (1.0-4.8) k/uL APTT 30.4 H (22.0-30.0) sec ABG pH (7.35-7.45) ABG pCO2 (35-45) mmHg ABG pO2 355 H (83-108) mmHg ABG HCO3 (21-25) mmol/L ABG Total CO2 26 H (19-24) mmol/L ABG O2 Saturation 99.7 H (94-97) % ABG Hematocrit 30 L (34.0-46.0) % ABG Sodium (135-146) mmol/L ABG Potassium 4.6 H (3.4-4.5) mmol/L ABG Ionized Calcium 4.3 L (4.5-5.3) mg/dL ABG Glucose 224 H (75-99) mg/dL ABG Lactic Acid 2.5 H* (0.5-1.6) mmol/L Hemoglobin 9.7 L (13.0-17.5) gm/dL Glucose (74-99) mg/dL POC Glucose (mg/dL) (75-99) mg/dL Calcium (8.4-10.2) mg/dL Ionized Calcium Eliane (4.5-5.3) mg/dL Magnesium (1.6-2.3) mg/dL Total Protein (6.3-8.2) g/dL Albumin (3.5-5.0) g/dL Arterial Blood Potassium 4.6 H (3.4-4.5) mmol/L Arterial Blood Glucose 224 H (75-99) mg/dL Crossmatch 06/19/19 06/19/19 06/19/19 Range/Units 15:55 16:08 16:18 WBC (3.8-10.6) k/uL RBC (4.30-5.90) m/uL Hgb (13.0-17.5) gm/dL Hct (39.0-53.0) % Plt Count (150-450) k/uL Neutrophils # (1.3-7.7) k/uL Lymphocytes # (1.0-4.8) k/uL APTT (22.0-30.0) sec ABG pH (7.35-7.45) ABG pCO2 46 H (35-45) mmHg ABG pO2 >400 H (83-108) mmHg ABG HCO3 26 H (21-25) mmol/L ABG Total CO2 27 H (19-24) mmol/L ABG O2 Saturation 99.9 H (94-97) % ABG Hematocrit (34.0-46.0) % ABG Sodium (135-146) mmol/L ABG Potassium (3.4-4.5) mmol/L ABG Ionized Calcium (4.5-5.3) mg/dL ABG Glucose (75-99) mg/dL ABG Lactic Acid (0.5-1.6) mmol/L Hemoglobin (13.0-17.5) gm/dL Glucose (74-99) mg/dL POC Glucose (mg/dL) 69 L (75-99) mg/dL Calcium 8.0 L (8.4-10.2) mg/dL Ionized Calcium Eliane (4.5-5.3) mg/dL Magnesium 2.8 H (1.6-2.3) mg/dL Total Protein 5.0 L (6.3-8.2) g/dL Albumin 3.4 L (3.5-5.0) g/dL Arterial Blood Potassium (3.4-4.5) mmol/L Arterial Blood Glucose (75-99) mg/dL Crossmatch 06/19/19 06/19/19 06/19/19 Range/Units 16:38 17:13 17:52 WBC 11.9 H (3.8-10.6) k/uL RBC 3.72 L (4.30-5.90) m/uL Hgb 11.6 L (13.0-17.5) gm/dL Hct 34.1 L (39.0-53.0) % Plt Count 122 L (150-450) k/uL Neutrophils # 9.4 H (1.3-7.7) k/uL Lymphocytes # (1.0-4.8) k/uL APTT (22.0-30.0) sec ABG pH (7.35-7.45) ABG pCO2 (35-45) mmHg ABG pO2 (83-108) mmHg ABG HCO3 (21-25) mmol/L ABG Total CO2 (19-24) mmol/L ABG O2 Saturation (94-97) % ABG Hematocrit (34.0-46.0) % ABG Sodium (135-146) mmol/L ABG Potassium (3.4-4.5) mmol/L ABG Ionized Calcium (4.5-5.3) mg/dL ABG Glucose (75-99) mg/dL ABG Lactic Acid (0.5-1.6) mmol/L Hemoglobin (13.0-17.5) gm/dL Glucose (74-99) mg/dL POC Glucose (mg/dL) 178 H 140 H (75-99) mg/dL Calcium (8.4-10.2) mg/dL Ionized Calcium Eliane (4.5-5.3) mg/dL Magnesium (1.6-2.3) mg/dL Total Protein (6.3-8.2) g/dL Albumin (3.5-5.0) g/dL Arterial Blood Potassium (3.4-4.5) mmol/L Arterial Blood Glucose (75-99) mg/dL Crossmatch 06/19/19 06/19/19 06/19/19 Range/Units 18:17 19:02 19:04 WBC (3.8-10.6) k/uL RBC (4.30-5.90) m/uL Hgb (13.0-17.5) gm/dL Hct (39.0-53.0) % Plt Count (150-450) k/uL Neutrophils # (1.3-7.7) k/uL Lymphocytes # (1.0-4.8) k/uL APTT (22.0-30.0) sec ABG pH (7.35-7.45) ABG pCO2 (35-45) mmHg ABG pO2 158 H (83-108) mmHg ABG HCO3 (21-25) mmol/L ABG Total CO2 25 H (19-24) mmol/L ABG O2 Saturation 99.3 H (94-97) % ABG Hematocrit (34.0-46.0) % ABG Sodium (135-146) mmol/L ABG Potassium (3.4-4.5) mmol/L ABG Ionized Calcium (4.5-5.3) mg/dL ABG Glucose (75-99) mg/dL ABG Lactic Acid (0.5-1.6) mmol/L Hemoglobin (13.0-17.5) gm/dL Glucose (74-99) mg/dL POC Glucose (mg/dL) 144 H 146 H (75-99) mg/dL Calcium (8.4-10.2) mg/dL Ionized Calcium Eliane (4.5-5.3) mg/dL Magnesium (1.6-2.3) mg/dL Total Protein (6.3-8.2) g/dL Albumin (3.5-5.0) g/dL Arterial Blood Potassium (3.4-4.5) mmol/L Arterial Blood Glucose (75-99) mg/dL Crossmatch 06/19/19 06/19/19 06/19/19 Range/Units 19:53 20:51 20:52 WBC (3.8-10.6) k/uL RBC 2.92 L (4.30-5.90) m/uL Hgb 9.1 L D (13.0-17.5) gm/dL Hct 26.8 L (39.0-53.0) % Plt Count 79 L (150-450) k/uL Neutrophils # (1.3-7.7) k/uL Lymphocytes # 0.3 L (1.0-4.8) k/uL APTT (22.0-30.0) sec ABG pH (7.35-7.45) ABG pCO2 (35-45) mmHg ABG pO2 (83-108) mmHg ABG HCO3 (21-25) mmol/L ABG Total CO2 (19-24) mmol/L ABG O2 Saturation (94-97) % ABG Hematocrit (34.0-46.0) % ABG Sodium (135-146) mmol/L ABG Potassium (3.4-4.5) mmol/L ABG Ionized Calcium (4.5-5.3) mg/dL ABG Glucose (75-99) mg/dL ABG Lactic Acid (0.5-1.6) mmol/L Hemoglobin (13.0-17.5) gm/dL Glucose (74-99) mg/dL POC Glucose (mg/dL) 152 H 131 H (75-99) mg/dL Calcium (8.4-10.2) mg/dL Ionized Calcium Eliane (4.5-5.3) mg/dL Magnesium (1.6-2.3) mg/dL Total Protein (6.3-8.2) g/dL Albumin (3.5-5.0) g/dL Arterial Blood Potassium (3.4-4.5) mmol/L Arterial Blood Glucose (75-99) mg/dL Crossmatch 06/19/19 06/19/19 06/20/19 Range/Units 21:51 22:52 00:00 WBC (3.8-10.6) k/uL RBC (4.30-5.90) m/uL Hgb (13.0-17.5) gm/dL Hct (39.0-53.0) % Plt Count (150-450) k/uL Neutrophils # (1.3-7.7) k/uL Lymphocytes # (1.0-4.8) k/uL APTT (22.0-30.0) sec ABG pH (7.35-7.45) ABG pCO2 (35-45) mmHg ABG pO2 (83-108) mmHg ABG HCO3 (21-25) mmol/L ABG Total CO2 (19-24) mmol/L ABG O2 Saturation (94-97) % ABG Hematocrit (34.0-46.0) % ABG Sodium (135-146) mmol/L ABG Potassium (3.4-4.5) mmol/L ABG Ionized Calcium (4.5-5.3) mg/dL ABG Glucose (75-99) mg/dL ABG Lactic Acid (0.5-1.6) mmol/L Hemoglobin (13.0-17.5) gm/dL Glucose (74-99) mg/dL POC Glucose (mg/dL) 132 H 135 H 122 H (75-99) mg/dL Calcium (8.4-10.2) mg/dL Ionized Calcium Eliane (4.5-5.3) mg/dL Magnesium (1.6-2.3) mg/dL Total Protein (6.3-8.2) g/dL Albumin (3.5-5.0) g/dL Arterial Blood Potassium (3.4-4.5) mmol/L Arterial Blood Glucose (75-99) mg/dL Crossmatch 06/20/19 06/20/19 06/20/19 Range/Units 01:00 02:23 03:20 WBC (3.8-10.6) k/uL RBC (4.30-5.90) m/uL Hgb (13.0-17.5) gm/dL Hct (39.0-53.0) % Plt Count (150-450) k/uL Neutrophils # (1.3-7.7) k/uL Lymphocytes # (1.0-4.8) k/uL APTT (22.0-30.0) sec ABG pH (7.35-7.45) ABG pCO2 (35-45) mmHg ABG pO2 (83-108) mmHg ABG HCO3 (21-25) mmol/L ABG Total CO2 (19-24) mmol/L ABG O2 Saturation (94-97) % ABG Hematocrit (34.0-46.0) % ABG Sodium (135-146) mmol/L ABG Potassium (3.4-4.5) mmol/L ABG Ionized Calcium (4.5-5.3) mg/dL ABG Glucose (75-99) mg/dL ABG Lactic Acid (0.5-1.6) mmol/L Hemoglobin (13.0-17.5) gm/dL Glucose (74-99) mg/dL POC Glucose (mg/dL) 122 H 123 H 132 H (75-99) mg/dL Calcium (8.4-10.2) mg/dL Ionized Calcium Eliane (4.5-5.3) mg/dL Magnesium (1.6-2.3) mg/dL Total Protein (6.3-8.2) g/dL Albumin (3.5-5.0) g/dL Arterial Blood Potassium (3.4-4.5) mmol/L Arterial Blood Glucose (75-99) mg/dL Crossmatch 06/20/19 06/20/19 06/20/19 Range/Units 04:00 04:00 04:01 WBC (3.8-10.6) k/uL RBC 2.91 L (4.30-5.90) m/uL Hgb 9.1 L (13.0-17.5) gm/dL Hct 26.8 L (39.0-53.0) % Plt Count 77 L (150-450) k/uL Neutrophils # (1.3-7.7) k/uL Lymphocytes # 0.6 L (1.0-4.8) k/uL APTT (22.0-30.0) sec ABG pH (7.35-7.45) ABG pCO2 (35-45) mmHg ABG pO2 (83-108) mmHg ABG HCO3 (21-25) mmol/L ABG Total CO2 (19-24) mmol/L ABG O2 Saturation (94-97) % ABG Hematocrit (34.0-46.0) % ABG Sodium (135-146) mmol/L ABG Potassium (3.4-4.5) mmol/L ABG Ionized Calcium (4.5-5.3) mg/dL ABG Glucose (75-99) mg/dL ABG Lactic Acid (0.5-1.6) mmol/L Hemoglobin (13.0-17.5) gm/dL Glucose 115 H (74-99) mg/dL POC Glucose (mg/dL) 134 H (75-99) mg/dL Calcium 8.0 L (8.4-10.2) mg/dL Ionized Calcium Eliane 4.4 L (4.5-5.3) mg/dL Magnesium (1.6-2.3) mg/dL Total Protein 5.2 L (6.3-8.2) g/dL Albumin 3.4 L (3.5-5.0) g/dL Arterial Blood Potassium (3.4-4.5) mmol/L Arterial Blood Glucose (75-99) mg/dL Crossmatch 06/20/19 06/20/19 06/20/19 Range/Units 04:52 06:04 06:56 WBC (3.8-10.6) k/uL RBC (4.30-5.90) m/uL Hgb (13.0-17.5) gm/dL Hct (39.0-53.0) % Plt Count (150-450) k/uL Neutrophils # (1.3-7.7) k/uL Lymphocytes # (1.0-4.8) k/uL APTT (22.0-30.0) sec ABG pH (7.35-7.45) ABG pCO2 (35-45) mmHg ABG pO2 (83-108) mmHg ABG HCO3 (21-25) mmol/L ABG Total CO2 (19-24) mmol/L ABG O2 Saturation (94-97) % ABG Hematocrit (34.0-46.0) % ABG Sodium (135-146) mmol/L ABG Potassium (3.4-4.5) mmol/L ABG Ionized Calcium (4.5-5.3) mg/dL ABG Glucose (75-99) mg/dL ABG Lactic Acid (0.5-1.6) mmol/L Hemoglobin (13.0-17.5) gm/dL Glucose (74-99) mg/dL POC Glucose (mg/dL) 131 H 116 H 136 H (75-99) mg/dL Calcium (8.4-10.2) mg/dL Ionized Calcium Eliane (4.5-5.3) mg/dL Magnesium (1.6-2.3) mg/dL Total Protein (6.3-8.2) g/dL Albumin (3.5-5.0) g/dL Arterial Blood Potassium (3.4-4.5) mmol/L Arterial Blood Glucose (75-99) mg/dL Crossmatch 06/20/19 06/20/19 06/20/19 Range/Units 08:14 09:20 10:16 WBC (3.8-10.6) k/uL RBC (4.30-5.90) m/uL Hgb (13.0-17.5) gm/dL Hct (39.0-53.0) % Plt Count (150-450) k/uL Neutrophils # (1.3-7.7) k/uL Lymphocytes # (1.0-4.8) k/uL APTT (22.0-30.0) sec ABG pH (7.35-7.45) ABG pCO2 (35-45) mmHg ABG pO2 (83-108) mmHg ABG HCO3 (21-25) mmol/L ABG Total CO2 (19-24) mmol/L ABG O2 Saturation (94-97) % ABG Hematocrit (34.0-46.0) % ABG Sodium (135-146) mmol/L ABG Potassium (3.4-4.5) mmol/L ABG Ionized Calcium (4.5-5.3) mg/dL ABG Glucose (75-99) mg/dL ABG Lactic Acid (0.5-1.6) mmol/L Hemoglobin (13.0-17.5) gm/dL Glucose (74-99) mg/dL POC Glucose (mg/dL) 156 H 195 H 158 H (75-99) mg/dL Calcium (8.4-10.2) mg/dL Ionized Calcium Eliane (4.5-5.3) mg/dL Magnesium (1.6-2.3) mg/dL Total Protein (6.3-8.2) g/dL Albumin (3.5-5.0) g/dL Arterial Blood Potassium (3.4-4.5) mmol/L Arterial Blood Glucose (75-99) mg/dL Crossmatch - Imaging and Cardiology Chest x-ray: report reviewed, image reviewed Assessment and Plan Assessment: 1. Coronary artery disease, status post four-vessel CABG 2. History of coronary artery disease with previous myocardial infarction and stent placement in 2000 and 2002 to the RCA 3. Ischemic cardiomyopathy with EF 40-45% 4. Hypertension 5. Hyperlipidemia 6. Diabetes mellitus with preoperative hemoglobin A1c 5.3% 7. Family history of premature coronary artery disease 8. Postoperative acute blood loss anemia Plan: 1. Continue aspirin, statin, Plavix, beta adrian therapy. Will increase beta adrian therapy as tolerated. Will need ROBY inhibitor due to cardiomyopathy when blood pressure will tolerate. 2. Will add oral Imdur, discontinue IV nitro 3. Wean O2 as tolerated. Encourage incentive spirometry use 10 times every hour while awake 4. Increase activity, ambulate as tolerated. PT/OT/cardiac rehab following 5. Will monitor daily labs and x-rays. Electrolyte replacement per protocol. No blood transfusion at this time 6. Pain control with current medication regimen 7. Insulin management per primary care service 8. GI/DVT prophylaxis 9. Bronchodilators per pulmonology 10. Discontinue [place]. Connect Cordis to continue CVP monitoring 11. Keep mediastinal and pleural chest tubes for another 24 hours 12. Keep Levy catheter for another 24 hours for accurate intake and output 13. More recommendations to follow Time with Patient: Greater than 30
[2019-06-20 11:27] LABS: Glucose,Whole Blood 128 mg/dL (75-99)
--- NOTE | 2019-06-20 12:08 | P.CONS ---
History of Present Illness - Reason for Consult Consult date: 06/20/19 Medical management Requesting physician: Jamel Wolff - Chief Complaint Coronary bypass - History of Present Illness Consultation: This is a pleasant 68-year-old patient of Dr. Jalen tanner. Chronic stable medical conditions include diabetes, hypertension, hyperlipidemia, psoriasis. Patient status post coronary bypass. Extubated yesterday evening. Current drips include nitroglycerin insulin. Patient is on nitroglycerin and insulin drip. Telemetry shows sinus rhythm. Patient has 2 mediastinal chest tubes and one left pleural chest tube. Slight short of breath. Sitting up in a chair. No nausea vomiting. Review of systems: GEN.: Tired EYES: None HEENT: None NECK: None RESPIRATORY: Some shortness of breath CARDIOVASCULAR: None GASTROINTESTINAL: None GENITOURINARY: Levy catheter] MUSCULOSKELETAL: None LYMPHATICS: None HEMATOLOGICAL: None PSYCHIATRY: None NEUROLOGICAL: None Past medical history to include: Coronary artery disease, diabetes, hyperlipidemia, hypertension, scoliosis [place] 2 Social history: Lives alone. 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 Does not smoke alcohol occasionally Physical examination: VITAL SIGNS: Afebrile, 74, 19, 1130 45, 96% on oxygen GENERAL: [BMI 30.7, sitting upon a chair, tired. EYES: Pupils equal. Conjunctiva palel. HEENT: External appearance of nose and ears normal, oral cavity grossly normal. NECK: JVD unable to assess; masses not palpable. HEART: First and second heart sounds are normal; no edema. LUNGS: Respiratory rate increased; decreased breath sounds. ABDOMEN: Soft, nontender, liver spleen not palpable, no masses palpable. PSYCH: Alert and oriented x3; mood and affect normal. CHEST wall: [address] NEUROLOGICAL: Cranial nerves grossly intact; no facial asymmetry, power and sensation grossly intact. LYMPHATICS: No lymph nodes palpable in the axilla and neck INVESTIGATIONS, reviewed in the clinical context: White count 5.2 hemoglobin 9.1 platelets and 77 potassium 4.8 creatinine 0.78 Lab work from June 11 showed a hemoglobin of 14.7 and a platelets of 213 Potassium 4.8 creatinine 0.78 Chest x-ray film-atelectasis Assessment: -Coronary bypass, currently with 2 mediastinal and one left pleural chest tube -Coronary artery disease -Diabetes mellitus type 2 on oral hypoglycemic -Hyperlipidemia -Essential hypertension -psoriases -Acute postprocedure blood loss anemia expected from surgery -Dilutional thrombocytopenia -Obesity BMI 30.7 Plan: Care was discussed with the patient. Patient's currently on DuoNeb received amiodarone also on insulin drip and nitro drip. Started on clear liquids. Accu-Cheks are being for. Patient to use respiratory spirometer. Other medica tions to continue Thank you Dr. Wolff. Past Medical History Past Medical History: Coronary Artery Disease (CAD), Diabetes Mellitus, Hyperlipidemia, Hypertension, Myocardial Infarction ([place]), Skin Disorder Additional Past Medical History / Comment(s): [place] x2, ongoing respiratory "thing"-drs not sure what, hx psoriasis, Last Myocardial Infarction Date:: unknown History of Any Multi-Drug Resistant Organisms: None Reported Past Surgical History: Adenoidectomy, Back Surgery, Heart Catheterization, Heart Catheterization With Stent, Joint Replacement, Tonsillectomy Additional Past Surgical History / Comment(s): heart stents x 3, roni knee replacement, surgery for undescended testicle, roni cataracts, hemorrhoidectomy, lower back surgery Past Anesthesia/Blood Transfusion Reactions: Motion Sickness, Postoperative Nausea & Vomiting (PONV) Additional Past Anesthesia/Blood Transfusion Reaction / Comm: severe PONV with general anesthesia Date of Last Stent Placement:: 2000 and 2002 to his RCA Smoking Status: Never smoker - Past Family History Mother Family Medical History: Dementia Additional Family Medical History / Comment(s): Past awake at age 83 from complications of influenza Father Family Medical History: Myocardial Infarction ([place]) Medications and Allergies Home Medications Medication Instructions Recorded Confirmed Type Aspirin EC [Ecotrin] 81 mg PO DAILY 01/10/14 06/19/19 History Enalapril [Vasotec] 20 mg PO QAM 01/10/14 06/19/19 History Metoprolol Tartrate [Lopressor] 25 mg PO BID 01/10/14 06/19/19 History Atorvastatin [Lipitor] 40 mg PO HS 08/09/18 06/19/19 History Cholecalciferol [Vitamin D3] 4,000 unit PO DAILY 08/09/18 06/19/19 History Multivit-Min/FA/Lycopen/Lutein 1 each PO DAILY 08/09/18 06/19/19 History [Centrum Silver Men Tablet] metFORMIN HCL 500 mg PO BID 08/09/18 06/19/19 History Allergies Allergy/AdvReac Type Severity Reaction Status Date / Time fenofibrate nanocrystallized AdvReac Unknown MUSCLE Verified 06/19/19 07:11 [From Tricor] SPASMS, BLACKED OUT fenofibrate,micronized AdvReac Unknown MUSCLE Verified 06/19/19 07:11 [From Tricor] SPASMS, BLACKED OUT Physical Exam Vitals: Vital Signs Temp Pulse Resp BP Pulse Ox 06/20/19 07:00 74 19 99/60 96 06/20/19 06:30 74 20 96 06/20/19 06:00 78 21 95 06/20/19 05:30 98 06/20/19 05:00 75 16 98 06/20/19 04:30 75 13 98 06/20/19 04:00 75 14 99 06/20/19 03:30 77 18 99 06/20/19 03:00 76 11 L 98 06/20/19 02:30 79 17 97 06/20/19 02:00 75 13 98 06/20/19 01:30 77 15 97 06/20/19 01:00 79 16 96 06/20/19 00:38 80 12 96 06/20/19 00:30 81 11 L 97 06/20/19 00:00 81 12 96 06/19/19 23:30 89 18 97 06/19/19 23:00 82 28 H 97 06/19/19 22:30 79 11 L 97 06/19/19 22:00 79 14 97 06/19/19 21:30 80 16 96 06/19/19 21:00 80 12 96 06/19/19 20:30 82 14 97 06/19/19 20:24 83 12 06/19/19 20:11 71 12 06/19/19 20:00 80 21 96 06/19/19 19:30 80 19 97 06/19/19 19:00 98.2 F 80 23 93/57 98 06/19/19 18:50 82 17 115/60 97 06/19/19 18:40 90 20 115/60 97 06/19/19 18:30 40 H 115/60 97 06/19/19 18:20 91 19 115/60 96 06/19/19 18:10 86 17 115/60 97 06/19/19 18:00 88 17 112/61 97 06/19/19 17:50 90 19 112/61 97 06/19/19 17:40 93 45 H 112/61 97 06/19/19 17:30 85 18 112/61 96 06/19/19 17:21 85 16 06/19/19 17:20 39 H 122/78 97 06/19/19 17:10 84 16 122/78 99 06/19/19 17:09 85 24 06/19/19 17:00 95.7 F L 78 14 122/78 100 06/19/19 16:50 76 14 122/78 100 06/19/19 16:40 71 14 110/72 100 06/19/19 16:30 70 12 110/72 100 06/19/19 16:20 10 L 110/72 100 06/19/19 16:10 70 8 L 110/72 100 06/19/19 16:00 95.4 F L 33 H 97 06/19/19 15:50 95.4 F L 73 10 L 98 06/19/19 15:40 77 17 06/19/19 15:39 21 Intake and Output 06/19/19 06/20/19 06/20/19 22:59 06:59 14:59 Intake Total 1807.254 864.537 59 Output Total 3001 564 25 Balance -1193.746 300.537 34 Intake: IV 1062 703 59 ACETAMINOPHEN IV (For NPO 100 ) 1,000 mg In Empty Bag 1 bag @ 400 mls/hr IVPB Q6HR JOANNE Rx#:[id number] Albumin Human 5% 250 ml 750 In Empty Bag 1 bag @ 250 mls/hr IVPB Q1HR PRN Rx#: [id number] CO/CI 40 40 Calcium Gluconate 2 gm In 100 Sodium Chloride 0.9% 100 ml @ 100 mls/hr IVPB ONCE PRN Rx#:[id number] Lactated Ringers 1,000 ml 200 350 50 @ 20 mls/hr IV .Q24H JOANNE Rx#:[id number] Normal Saline pressure 72 63 9 Bag ceFAZolin 2 gm In Sodium 50 Chloride 0.9% 50 ml @ 100 mls/hr IVPB Q8H JOANNE Rx#: [id number] Intake, IV Titration 745.254 61.537 Amount ACETAMINOPHEN IV (For NPO 100 ) 1,000 mg In Empty Bag 1 bag @ 400 mls/hr IVPB Q6HR JOANNE Rx#:[id number] Albumin Human 5% 250 ml 250 In Empty Bag 1 bag @ 250 mls/hr IVPB Q1HR PRN Rx#: [id number] Clevidipine Butyrate 25 22.682 mg In Empty Bag 1 bag @ 1 MG/HR 2 mls/hr IV .Q24H JOANNE Rx#:[id number] Dexmedetomidine/0.9% NaCl 26.671 48.870 (Pmx) 400 mcg In Empty Bag 1 bag @ Titrate IV . Q0M JOANNE Rx#:[id number] Insulin Regular 100 unit 8.366 12.667 In Sodium Chloride 0.9% 100 ml @ Per Protocol IV .Q0M JOANNE Rx#:[id number] Lactated Ringers 1,000 ml 200 @ 20 mls/hr IV .Q24H JOANNE Rx#:[id number] Nitroglycerin-D5w Pmx 50 5 mg In Dextrose/Water 1 250ml.bag @ 10 MCG/MIN 3 mls/hr IV .Q24H JOANNE Rx#: [id number] Propofol 1,000 mg In 32.535 Empty Bag 1 bag @ Titrate IV .Q0M JOANNE Rx#: [id number] ceFAZolin 2 gm In Sodium 100 Chloride 0.9% 50 ml @ 100 mls/hr IVPB Q8H JOANNE Rx#: [id number] Oral 100 Output: Chest Tube Drainage 301 194 0 Left Pleural 38 24 0 Mediastinal X 2 263 170 0 Urine 1500 370 25 Estimated Blood Loss 1200 Other: Voiding Method Indwelling Catheter Indwelling Catheter Weight 102.7 kg ABP, PAP, CO, CI - Last 8 Hours Arterial Blood Pressure 113/45 Arterial Blood Pressure 111/46 Arterial Blood Pressure 116/49 Arterial Blood Pressure 117/52 Arterial Blood Pressure 103/46 Arterial Blood Pressure 106/46 Arterial Blood Pressure 102/49 Arterial Blood Pressure 103/46 Arterial Blood Pressure 104/46 Arterial Blood Pressure 104/47 Arterial Blood Pressure 115/51 Pulmonary Artery Pressure 18/10 Pulmonary Artery Pressure 19/10 Pulmonary Artery Pressure 20/13 Pulmonary Artery Pressure 23/13 Pulmonary Artery Pressure 20/13 Pulmonary Artery Pressure 18/11 Pulmonary Artery Pressure 22/12 Pulmonary Artery Pressure 20/10 Pulmonary Artery Pressure 23/13 Pulmonary Artery Pressure 20/12 Pulmonary Artery Pressure 22/12 Cardiac Output 5.7 Cardiac Index 2.6 Results CBC & Chem 7: 06/20/19 04:00 06/20/19 04:00 Labs: Abnormal Lab Results - Last 24 Hours (Table) 06/11/19 06/19/19 06/19/19 Range/Units 10:45 09:32 10:37 WBC (3.8-10.6) k/uL RBC (4.30-5.90) m/uL Hgb (13.0-17.5) gm/dL Hct (39.0-53.0) % Plt Count (150-450) k/uL Neutrophils # (1.3-7.7) k/uL Lymphocytes # (1.0-4.8) k/uL APTT (22.0-30.0) sec ABG pH 7.30 L (7.35-7.45) ABG pCO2 52 H (35-45) mmHg ABG pO2 203 H 283 H (83-108) mmHg ABG HCO3 26 H 26 H (21-25) mmol/L ABG Total CO2 28 H 27 H (19-24) mmol/L ABG O2 Saturation 99.5 H 99.6 H (94-97) % ABG Hematocrit (34.0-46.0) % ABG Sodium (135-146) mmol/L ABG Potassium 4.6 H 4.6 H (3.4-4.5) mmol/L ABG Ionized Calcium (4.5-5.3) mg/dL ABG Glucose 112 H 157 H (75-99) mg/dL ABG Lactic Acid (0.5-1.6) mmol/L Hemoglobin (13.0-17.5) gm/dL Glucose (74-99) mg/dL POC Glucose (mg/dL) (75-99) mg/dL Calcium (8.4-10.2) mg/dL Ionized Calcium Eliane (4.5-5.3) mg/dL Magnesium (1.6-2.3) mg/dL Total Protein (6.3-8.2) g/dL Albumin (3.5-5.0) g/dL Arterial Blood Potassium 4.6 H 4.6 H (3.4-4.5) mmol/L Arterial Blood Glucose 112 H 157 H (75-99) mg/dL Crossmatch See Detail 06/19/19 06/19/19 06/19/19 Range/Units 11:27 12:11 12:38 WBC (3.8-10.6) k/uL RBC (4.30-5.90) m/uL Hgb (13.0-17.5) gm/dL Hct (39.0-53.0) % Plt Count (150-450) k/uL Neutrophils # (1.3-7.7) k/uL Lymphocytes # (1.0-4.8) k/uL APTT (22.0-30.0) sec ABG pH (7.35-7.45) ABG pCO2 (35-45) mmHg ABG pO2 381 H 304 H 349 H (83-108) mmHg ABG HCO3 28 H 26 H (21-25) mmol/L ABG Total CO2 25 H 29 H 28 H (19-24) mmol/L ABG O2 Saturation 99.9 H 99.7 H 100.0 H (94-97) % ABG Hematocrit 32 L 30 L (34.0-46.0) % ABG Sodium 133 L 134 L (135-146) mmol/L ABG Potassium 4.8 H 4.9 H (3.4-4.5) mmol/L ABG Ionized Calcium 4.3 L 4.4 L 4.3 L (4.5-5.3) mg/dL ABG Glucose 140 H 213 H 269 H (75-99) mg/dL ABG Lactic Acid 1.8 H (0.5-1.6) mmol/L Hemoglobin 10.9 L 10.4 L 9.8 L (13.0-17.5) gm/dL Glucose (74-99) mg/dL POC Glucose (mg/dL) (75-99) mg/dL Calcium (8.4-10.2) mg/dL Ionized Calcium Eliane (4.5-5.3) mg/dL Magnesium (1.6-2.3) mg/dL Total Protein (6.3-8.2) g/dL Albumin (3.5-5.0) g/dL Arterial Blood Potassium 4.8 H 4.9 H (3.4-4.5) mmol/L Arterial Blood Glucose 140 H 213 H 269 H (75-99) mg/dL Crossmatch 06/19/19 06/19/19 06/19/19 Range/Units 13:13 15:55 15:55 WBC (3.8-10.6) k/uL RBC 3.17 L (4.30-5.90) m/uL Hgb 9.9 L D (13.0-17.5) gm/dL Hct 28.6 L (39.0-53.0) % Plt Count 90 L D (150-450) k/uL Neutrophils # (1.3-7.7) k/uL Lymphocytes # (1.0-4.8) k/uL APTT 30.4 H (22.0-30.0) sec ABG pH (7.35-7.45) ABG pCO2 (35-45) mmHg ABG pO2 355 H (83-108) mmHg ABG HCO3 (21-25) mmol/L ABG Total CO2 26 H (19-24) mmol/L ABG O2 Saturation 99.7 H (94-97) % ABG Hematocrit 30 L (34.0-46.0) % ABG Sodium (135-146) mmol/L ABG Potassium 4.6 H (3.4-4.5) mmol/L ABG Ionized Calcium 4.3 L (4.5-5.3) mg/dL ABG Glucose 224 H (75-99) mg/dL ABG Lactic Acid 2.5 H* (0.5-1.6) mmol/L Hemoglobin 9.7 L (13.0-17.5) gm/dL Glucose (74-99) mg/dL POC Glucose (mg/dL) (75-99) mg/dL Calcium (8.4-10.2) mg/dL Ionized Calcium Eliane (4.5-5.3) mg/dL Magnesium (1.6-2.3) mg/dL Total Protein (6.3-8.2) g/dL Albumin (3.5-5.0) g/dL Arterial Blood Potassium 4.6 H (3.4-4.5) mmol/L Arterial Blood Glucose 224 H (75-99) mg/dL Crossmatch 06/19/19 06/19/19 06/19/19 Range/Units 15:55 16:08 16:18 WBC (3.8-10.6) k/uL RBC (4.30-5.90) m/uL Hgb (13.0-17.5) gm/dL Hct (39.0-53.0) % Plt Count (150-450) k/uL Neutrophils # (1.3-7.7) k/uL Lymphocytes # (1.0-4.8) k/uL APTT (22.0-30.0) sec ABG pH (7.35-7.45) ABG pCO2 46 H (35-45) mmHg ABG pO2 >400 H (83-108) mmHg ABG HCO3 26 H (21-25) mmol/L ABG Total CO2 27 H (19-24) mmol/L ABG O2 Saturation 99.9 H (94-97) % ABG Hematocrit (34.0-46.0) % ABG Sodium (135-146) mmol/L ABG Potassium (3.4-4.5) mmol/L ABG Ionized Calcium (4.5-5.3) mg/dL ABG Glucose (75-99) mg/dL ABG Lactic Acid (0.5-1.6) mmol/L Hemoglobin (13.0-17.5) gm/dL Glucose (74-99) mg/dL POC Glucose (mg/dL) 69 L (75-99) mg/dL Calcium 8.0 L (8.4-10.2) mg/dL Ionized Calcium Eliane (4.5-5.3) mg/dL Magnesium 2.8 H (1.6-2.3) mg/dL Total Protein 5.0 L (6.3-8.2) g/dL Albumin 3.4 L (3.5-5.0) g/dL Arterial Blood Potassium (3.4-4.5) mmol/L Arterial Blood Glucose (75-99) mg/dL Crossmatch 06/19/19 06/19/19 06/19/19 Range/Units 16:38 17:13 17:52 WBC 11.9 H (3.8-10.6) k/uL RBC 3.72 L (4.30-5.90) m/uL Hgb 11.6 L (13.0-17.5) gm/dL Hct 34.1 L (39.0-53.0) % Plt Count 122 L (150-450) k/uL Neutrophils # 9.4 H (1.3-7.7) k/uL Lymphocytes # (1.0-4.8) k/uL APTT (22.0-30.0) sec ABG pH (7.35-7.45) ABG pCO2 (35-45) mmHg ABG pO2 (83-108) mmHg ABG HCO3 (21-25) mmol/L ABG Total CO2 (19-24) mmol/L ABG O2 Saturation (94-97) % ABG Hematocrit (34.0-46.0) % ABG Sodium (135-146) mmol/L ABG Potassium (3.4-4.5) mmol/L ABG Ionized Calcium (4.5-5.3) mg/dL ABG Glucose (75-99) mg/dL ABG Lactic Acid (0.5-1.6) mmol/L Hemoglobin (13.0-17.5) gm/dL Glucose (74-99) mg/dL POC Glucose (mg/dL) 178 H 140 H (75-99) mg/dL Calcium (8.4-10.2) mg/dL Ionized Calcium Eliane (4.5-5.3) mg/dL Magnesium (1.6-2.3) mg/dL Total Protein (6.3-8.2) g/dL Albumin (3.5-5.0) g/dL Arterial Blood Potassium (3.4-4.5) mmol/L Arterial Blood Glucose (75-99) mg/dL Crossmatch 06/19/19 06/19/19 06/19/19 Range/Units 18:17 19:02 19:04 WBC (3.8-10.6) k/uL RBC (4.30-5.90) m/uL Hgb (13.0-17.5) gm/dL Hct (39.0-53.0) % Plt Count (150-450) k/uL Neutrophils # (1.3-7.7) k/uL Lymphocytes # (1.0-4.8) k/uL APTT (22.0-30.0) sec ABG pH (7.35-7.45) ABG pCO2 (35-45) mmHg ABG pO2 158 H (83-108) mmHg ABG HCO3 (21-25) mmol/L ABG Total CO2 25 H (19-24) mmol/L ABG O2 Saturation 99.3 H (94-97) % ABG Hematocrit (34.0-46.0) % ABG Sodium (135-146) mmol/L ABG Potassium (3.4-4.5) mmol/L ABG Ionized Calcium (4.5-5.3) mg/dL ABG Glucose (75-99) mg/dL ABG Lactic Acid (0.5-1.6) mmol/L Hemoglobin (13.0-17.5) gm/dL Glucose (74-99) mg/dL POC Glucose (mg/dL) 144 H 146 H (75-99) mg/dL Calcium (8.4-10.2) mg/dL Ionized Calcium Eliane (4.5-5.3) mg/dL Magnesium (1.6-2.3) mg/dL Total Protein (6.3-8.2) g/dL Albumin (3.5-5.0) g/dL Arterial Blood Potassium (3.4-4.5) mmol/L Arterial Blood Glucose (75-99) mg/dL Crossmatch 06/19/19 06/19/19 06/19/19 Range/Units 19:53 20:51 20:52 WBC (3.8-10.6) k/uL RBC 2.92 L (4.30-5.90) m/uL Hgb 9.1 L D (13.0-17.5) gm/dL Hct 26.8 L (39.0-53.0) % Plt Count 79 L (150-450) k/uL Neutrophils # (1.3-7.7) k/uL Lymphocytes # 0.3 L (1.0-4.8) k/uL APTT (22.0-30.0) sec ABG pH (7.35-7.45) ABG pCO2 (35-45) mmHg ABG pO2 (83-108) mmHg ABG HCO3 (21-25) mmol/L ABG Total CO2 (19-24) mmol/L ABG O2 Saturation (94-97) % ABG Hematocrit (34.0-46.0) % ABG Sodium (135-146) mmol/L ABG Potassium (3.4-4.5) mmol/L ABG Ionized Calcium (4.5-5.3) mg/dL ABG Glucose (75-99) mg/dL ABG Lactic Acid (0.5-1.6) mmol/L Hemoglobin (13.0-17.5) gm/dL Glucose (74-99) mg/dL POC Glucose (mg/dL) 152 H 131 H (75-99) mg/dL Calcium (8.4-10.2) mg/dL Ionized Calcium Eliane (4.5-5.3) mg/dL Magnesium (1.6-2.3) mg/dL Total Protein (6.3-8.2) g/dL Albumin (3.5-5.0) g/dL Arterial Blood Potassium (3.4-4.5) mmol/L Arterial Blood Glucose (75-99) mg/dL Crossmatch 06/19/19 06/19/19 06/20/19 Range/Units 21:51 22:52 00:00 WBC (3.8-10.6) k/uL RBC (4.30-5.90) m/uL Hgb (13.0-17.5) gm/dL Hct (39.0-53.0) % Plt Count (150-450) k/uL Neutrophils # (1.3-7.7) k/uL Lymphocytes # (1.0-4.8) k/uL APTT (22.0-30.0) sec ABG pH (7.35-7.45) ABG pCO2 (35-45) mmHg ABG pO2 (83-108) mmHg ABG HCO3 (21-25) mmol/L ABG Total CO2 (19-24) mmol/L ABG O2 Saturation (94-97) % ABG Hematocrit (34.0-46.0) % ABG Sodium (135-146) mmol/L ABG Potassium (3.4-4.5) mmol/L ABG Ionized Calcium (4.5-5.3) mg/dL ABG Glucose (75-99) mg/dL ABG Lactic Acid (0.5-1.6) mmol/L Hemoglobin (13.0-17.5) gm/dL Glucose (74-99) mg/dL POC Glucose (mg/dL) 132 H 135 H 122 H (75-99) mg/dL Calcium (8.4-10.2) mg/dL Ionized Calcium Eliane (4.5-5.3) mg/dL Magnesium (1.6-2.3) mg/dL Total Protein (6.3-8.2) g/dL Albumin (3.5-5.0) g/dL Arterial Blood Potassium (3.4-4.5) mmol/L Arterial Blood Glucose (75-99) mg/dL Crossmatch 06/20/19 06/20/19 06/20/19 Range/Units 01:00 02:23 03:20 WBC (3.8-10.6) k/uL RBC (4.30-5.90) m/uL Hgb (13.0-17.5) gm/dL Hct (39.0-53.0) % Plt Count (150-450) k/uL Neutrophils # (1.3-7.7) k/uL Lymphocytes # (1.0-4.8) k/uL APTT (22.0-30.0) sec ABG pH (7.35-7.45) ABG pCO2 (35-45) mmHg ABG pO2 (83-108) mmHg ABG HCO3 (21-25) mmol/L ABG Total CO2 (19-24) mmol/L ABG O2 Saturation (94-97) % ABG Hematocrit (34.0-46.0) % ABG Sodium (135-146) mmol/L ABG Potassium (3.4-4.5) mmol/L ABG Ionized Calcium (4.5-5.3) mg/dL ABG Glucose (75-99) mg/dL ABG Lactic Acid (0.5-1.6) mmol/L Hemoglobin (13.0-17.5) gm/dL Glucose (74-99) mg/dL POC Glucose (mg/dL) 122 H 123 H 132 H (75-99) mg/dL Calcium (8.4-10.2) mg/dL Ionized Calcium Eliane (4.5-5.3) mg/dL Magnesium (1.6-2.3) mg/dL Total Protein (6.3-8.2) g/dL Albumin (3.5-5.0) g/dL Arterial Blood Potassium (3.4-4.5) mmol/L Arterial Blood Glucose (75-99) mg/dL Crossmatch 06/20/19 06/20/19 06/20/19 Range/Units 04:00 04:00 04:01 WBC (3.8-10.6) k/uL RBC 2.91 L (4.30-5.90) m/uL Hgb 9.1 L (13.0-17.5) gm/dL Hct 26.8 L (39.0-53.0) % Plt Count 77 L (150-450) k/uL Neutrophils # (1.3-7.7) k/uL Lymphocytes # 0.6 L (1.0-4.8) k/uL APTT (22.0-30.0) sec ABG pH (7.35-7.45) ABG pCO2 (35-45) mmHg ABG pO2 (83-108) mmHg ABG HCO3 (21-25) mmol/L ABG Total CO2 (19-24) mmol/L ABG O2 Saturation (94-97) % ABG Hematocrit (34.0-46.0) % ABG Sodium (135-146) mmol/L ABG Potassium (3.4-4.5) mmol/L ABG Ionized Calcium (4.5-5.3) mg/dL ABG Glucose (75-99) mg/dL ABG Lactic Acid (0.5-1.6) mmol/L Hemoglobin (13.0-17.5) gm/dL Glucose 115 H (74-99) mg/dL POC Glucose (mg/dL) 134 H (75-99) mg/dL Calcium 8.0 L (8.4-10.2) mg/dL Ionized Calcium Eliane 4.4 L (4.5-5.3) mg/dL Magnesium (1.6-2.3) mg/dL Total Protein 5.2 L (6.3-8.2) g/dL Albumin 3.4 L (3.5-5.0) g/dL Arterial Blood Potassium (3.4-4.5) mmol/L Arterial Blood Glucose (75-99) mg/dL Crossmatch 06/20/19 06/20/19 06/20/19 Range/Units 04:52 06:04 06:56 WBC (3.8-10.6) k/uL RBC (4.30-5.90) m/uL Hgb (13.0-17.5) gm/dL Hct (39.0-53.0) % Plt Count (150-450) k/uL Neutrophils # (1.3-7.7) k/uL Lymphocytes # (1.0-4.8) k/uL APTT (22.0-30.0) sec ABG pH (7.35-7.45) ABG pCO2 (35-45) mmHg ABG pO2 (83-108) mmHg ABG HCO3 (21-25) mmol/L ABG Total CO2 (19-24) mmol/L ABG O2 Saturation (94-97) % ABG Hematocrit (34.0-46.0) % ABG Sodium (135-146) mmol/L ABG Potassium (3.4-4.5) mmol/L ABG Ionized Calcium (4.5-5.3) mg/dL ABG Glucose (75-99) mg/dL ABG Lactic Acid (0.5-1.6) mmol/L Hemoglobin (13.0-17.5) gm/dL Glucose (74-99) mg/dL POC Glucose (mg/dL) 131 H 116 H 136 H (75-99) mg/dL Calcium (8.4-10.2) mg/dL Ionized Calcium Eliane (4.5-5.3) mg/dL Magnesium (1.6-2.3) mg/dL Total Protein (6.3-8.2) g/dL Albumin (3.5-5.0) g/dL Arterial Blood Potassium (3.4-4.5) mmol/L Arterial Blood Glucose (75-99) mg/dL Crossmatch 06/20/19 Range/Units 08:14 WBC (3.8-10.6) k/uL RBC (4.30-5.90) m/uL Hgb (13.0-17.5) gm/dL Hct (39.0-53.0) % Plt Count (150-450) k/uL Neutrophils # (1.3-7.7) k/uL Lymphocytes # (1.0-4.8) k/uL APTT (22.0-30.0) sec ABG pH (7.35-7.45) ABG pCO2 (35-45) mmHg ABG pO2 (83-108) mmHg ABG HCO3 (21-25) mmol/L ABG Total CO2 (19-24) mmol/L ABG O2 Saturation (94-97) % ABG Hematocrit (34.0-46.0) % ABG Sodium (135-146) mmol/L ABG Potassium (3.4-4.5) mmol/L ABG Ionized Calcium (4.5-5.3) mg/dL ABG Glucose (75-99) mg/dL ABG Lactic Acid (0.5-1.6) mmol/L Hemoglobin (13.0-17.5) gm/dL Glucose (74-99) mg/dL POC Glucose (mg/dL) 156 H (75-99) mg/dL Calcium (8.4-10.2) mg/dL Ionized Calcium Eliane (4.5-5.3) mg/dL Magnesium (1.6-2.3) mg/dL Total Protein (6.3-8.2) g/dL Albumin (3.5-5.0) g/dL Arterial Blood Potassium (3.4-4.5) mmol/L Arterial Blood Glucose (75-99) mg/dL Crossmatch
[2019-06-20] MEDS: ISOSORBIDE MONONITRATE ER 30 MG TAB.ER.24H PO SCH (12:12)
[2019-06-20 12:19] LABS: Glucose,Whole Blood 119 mg/dL (75-99)
[2019-06-20 13:03] LABS: Glucose,Whole Blood 114 mg/dL (75-99)
[2019-06-20 13:56] LABS: Glucose,Whole Blood 136 mg/dL (75-99)
[2019-06-20 15:17] LABS: Glucose,Whole Blood 134 mg/dL (75-99)
[2019-06-20 16:09] LABS: Glucose,Whole Blood 137 mg/dL (75-99)
[2019-06-20 16:42] LABS: Glucose,Whole Blood 119 mg/dL (75-99)
[2019-06-20 17:53] LABS: Glucose,Whole Blood 166 mg/dL (75-99)
[2019-06-20 19:07] LABS: Glucose,Whole Blood 172 mg/dL (75-99)
[2019-06-20 20:22] LABS: Glucose,Whole Blood 140 mg/dL (75-99)
[2019-06-20] MEDS: SENNOSIDES-DOCUSATE SODIUM 1 EACH TAB PO SCH (20:42)
[2019-06-20 21:33] LABS: Glucose,Whole Blood 145 mg/dL (75-99)
[2019-06-20 22:24] LABS: Glucose,Whole Blood 139 mg/dL (75-99)
[2019-06-21 00:03] LABS: Glucose,Whole Blood 129 mg/dL (75-99)
[2019-06-21] MEDS: HEPARIN SODIUM,PORCINE 5,000 UNIT/ML 1 ML VIAL SQ SCH ×3 (00:03→15:12)
[2019-06-21] MEDS: KETOROLAC 30 MG/ML 1 ML VIAL IVP SCH ×4 (00:03→17:16)
[2019-06-21 01:11] LABS: Glucose,Whole Blood 132 mg/dL (75-99)
[2019-06-21 02:11] LABS: Glucose,Whole Blood 133 mg/dL (75-99)
[2019-06-21] MEDS: HYDROcodone/APAP 5-325MG 1 EACH TAB PO PRN ×2 (02:46→20:32)
[2019-06-21 04:34] LABS: Glucose,Whole Blood 131 mg/dL (75-99)
[2019-06-21 04:44] LABS: Basophils % (A) 0 %; Eosinophils # (A) 0.1 k/uL (0-0.7); Eosinophils % (A) 2 %; HCT 24.8 % (39.0-53.0); HGB 8.4 gm/dL (13.0-17.5); Lymphocytes # (A) 0.6 k/uL (1.0-4.8); Lymphocytes % (A) 8 %; MCH 31.3 pg (25.0-35.0); MCHC 33.7 g/dL (31.0-37.0); MCV 92.8 fL (80.0-100.0); Mean Platelet Volume 9.4; Monocytes # (A) 0.5 k/uL (0-1.0); Monocytes % (A) 6 %; Neutrophils # (A) 6.5 k/uL (1.3-7.7); Neutrophils % (A) 83 %; RBC 2.67 m/uL (4.30-5.90); RDW 13.4 % (11.5-15.5); WBC 7.9 k/uL (3.8-10.6)
[2019-06-21 04:45] LABS: Platelet Count 85 k/uL (150-450)
[2019-06-21 04:50] LABS: INR 1.2 (<1.2); Prothrombin Time 11.8 sec (9.0-12.0)
[2019-06-21 04:52] LABS: Ionized Calcium 4.6 mg/dL (4.5-5.3)
[2019-06-21 05:01] LABS: ALT 20 U/L (4-49); AST 29 U/L (17-59); African American GFR (CKD) >90 (>60 ml/min/1.73 sqM); Albumin 3.1 g/dL (3.5-5.0); Alkaline Phosphatase 48 U/L (38-126); Anion Gap 6 mmol/L; Blood Urea Nitrogen 20 mg/dL (9-20); Calcium 8.4 mg/dL (8.4-10.2); Carbon Dioxide 25 mmol/L (22-30); Chloride 104 mmol/L (98-107); Glucose 116 mg/dL (74-99); Non-African American GFR(CKD) >90 (>60 ml/min/1.73 sqM); Potassium 4.3 mmol/L (3.5-5.1); Sodium 135 mmol/L (137-145); Total Bilirubin 0.6 mg/dL (0.2-1.3)
[2019-06-21 05:40] LABS: Glucose,Whole Blood 135 mg/dL (75-99)
[2019-06-21 06:20] LABS: Glucose,Whole Blood 125 mg/dL (75-99)
[2019-06-21 07:15] LABS: Glucose,Whole Blood 123 mg/dL (75-99)
[2019-06-21] MEDS: PANTOPRAZOLE 40 MG TABLET PO SCH (07:21)
--- NOTE | 2019-06-21 07:32 | XR ---
EXAMINATION TYPE: XR chest 1V portable DATE OF EXAM: 06/21/2019 COMPARISON: 06/20/2019 HISTORY: Follow-up after cardiac surgery TECHNIQUE: Single frontal view of the chest is obtained. FINDINGS: [place] catheter has been removed leaving the right internal jugular sheath in place. Le ft-sided thoracostomy tube remains. Postsurgical changes of the chest are present with enlarged cardi ac mediastinal silhouette. There are low lung volumes and bibasilar atelectasis with very trace pleur al effusions blunting the costophrenic angles. No sizable pneumothorax. Mediastinal drains remain. IMPRESSION: Removal of the [place] catheter. Very trace pleural effusions and bibasilar linear air space disease, likely atelectasis. No residual pneumothorax seen.
[2019-06-21] MEDS: MULTIVITAMINS, THERA 1 EACH TAB PO SCH (07:57)
[2019-06-21] MEDS: CLOPIDOGREL 75 MG TAB PO SCH (07:57)
[2019-06-21] MEDS: CHOLECALCIFEROL 1,000 UNIT TAB PO SCH (07:57)
[2019-06-21] MEDS: ATORVASTATIN 40 MG TAB PO SCH (07:57)
[2019-06-21] MEDS: METOPROLOL TARTRATE 12.5 MG TAB PO SCH (07:57)
[2019-06-21] MEDS: ASPIRIN 325 MG TAB PO SCH (07:57)
[2019-06-21] MEDS: MUPIROCIN 2% OINT 22 GM TUBE NASAL SCH ×2 (07:58→20:35)
[2019-06-21] MEDS: ISOSORBIDE MONONITRATE ER 30 MG TAB.ER.24H PO SCH ×2 (07:58→09:08)
[2019-06-21 08:06] LABS: Glucose,Whole Blood 178 mg/dL (75-99)
[2019-06-21] MEDS: IPRATROPIUM-ALBUTEROL 3 ML NEB INHALATION SCH ×4 (08:18→19:53)
--- NOTE | 2019-06-21 08:46 | P.PN ---
Subjective Progress Note Date: 06/21/19 Principal diagnosis: Coronary artery disease. Previous medical history of coronary artery disease and previous myocardial infarction with stent placement in 2000 and 2002 to the RCA, ischemic cardiomyopathy with EF 40-45%, hypertension, hyperlipidemia, diabetes mellitus with preoperative hemoglobin A1c 5.3%, and family history of premature coronary artery disease. POD #2 coronary artery bypass grafting 4 vessels, left internal mammary artery to the left anterior descending artery, reverse saphenous vein graft to the diagonal artery, reverse saphenous vein graft to posterior descending artery, reverse saphenous vein graft to the obtuse marginal artery, endoscopic harves ting of the right greater saphenous vein, epi-aortic ultrasound, intraoperative transesophageal echocardiogram, ligation of left atrial appendage using a 35 mm AtriCure clip Postoperative acute blood loss anemia, expected outcome of surgery due to hemodilution and cardiopulmonary bypass pump The patient is currently sitting up in a recliner in the intensive care unit in no acute distress. Complains of postsurgical type pain which is controlled on current medication regimen, denies shortness of breath. Currently in normal sinus rhythm, remains hemodynamically stable on no inotropes or pressors. He ambulated in the hallway yesterday with PT without difficulty. No new concerns Objective - Vital Signs Vital signs: Vital Signs Temp 98.2 F 06/21/19 08:00 Pulse 95 06/21/19 08:31 Resp 23 06/21/19 08:00 BP 114/59 06/21/19 06:00 Pulse Ox 93 L 06/21/19 08:19 Intake & Output 06/20/19 06/21/19 06/21/19 18:59 06:59 18:59 Intake Total 243.196 558.308 546.746 Output Total 300 875 0 Balance -56.804 -316.692 546.746 Weight 103.1 kg Intake: IV 217 309 52 Lactated Ringers 1,000 ml 190 240 40 @ 20 mls/hr IV .Q24H [facility] Rx#:[id number] Normal Saline pressure 27 69 12 Bag Intake, IV Titration 26.196 9.308 14.746 Amount Insulin Regular 100 unit 14.696 9.308 14.746 In Sodium Chloride 0.9% 100 ml @ Per Protocol IV .Q0M [facility] Rx#:[id number] Nitroglycerin-D5w Pmx 50 11.5 mg In Dextrose/Water 1 250ml.bag @ 10 MCG/MIN 3 mls/hr IV .Q24H [facility] Rx#: [id number] Oral 240 480 Output: Chest Tube Drainage 30 490 Left Pleural 10 310 Mediastinal X 2 20 180 Urine 270 385 0 Other: Voiding Method Indwelling Catheter Indwelling Catheter ABP, PAP, CO, CI - Last Documented Arterial Blood Pressure 141/45 Pulmonary Artery Pressure 16/7 Cardiac Output 5.7 Cardiac Index 2.6 - Constitutional General appearance: Present: cooperative, no acute distress - Respiratory Details: Lungs sounds diminished bilaterally. Respirations even, nonlabored. Currently on 2 L nasal cannula with oxygen saturation 96%. Able to achieve 1000 mL on his incentive spirometry. Strong cough. Mediastinal chest tubes present to continuous wall suction, 90 mL serosanguineous drainage overnight, 200 mL in the last 24 hours, no air leak present. Left pleural chest tube to continuous wall suction, 130 mL serous drainage in the last 24 hours, no air leak present. - Cardiovascular Details: S1, S2 present. Regular rate and rhythm, sinus rhythm on telemetry. Sternum stable. A/V epicardial pacemaker wires present, grounded. Palpable peripheral pulses bilaterally. No edema present. No calf pain or tenderness noted. Cordis, right radial arterial line present. Heart hugger in place with patient demonstrating appropriate use. Antiembolism stockings, SCDs present. - Gastrointestinal Gastrointestinal Comment(s): Abdomen soft, nontender, nondistended. Active bowel sounds present 4 quadrants. Tolerating diet. Positive flatus - Genitourinary Genitourinary Comment(s): Levy discontinued this morning. Output overnight 30 mL per hour - Integumentary Integumentary Comment(s): Skin is warm dry with evidence of good perfusion. Anterior chest incision well approximated covered with dry intact dressing. Right lower extremity EVH site well approximated - Neurologic Neurologic: Present: CNII-XII intact - Musculoskeletal Musculoskeletal: Present: gait normal, strength equal bilaterally - Psychiatric Psychiatric: Present: A&O x's 3, appropriate affect, intact judgment & insight - Allied health notes Allied health notes reviewed: nursing - Labs CBC & Chem 7: 06/21/19 04:30 06/21/19 04:30 Labs: Abnormal Lab Results - Last 24 Hours (Table) 06/20/19 06/20/19 06/20/19 Range/Units 09:20 10:16 11:26 RBC (4.30-5.90) m/uL Hgb (13.0-17.5) gm/dL Hct (39.0-53.0) % Plt Count (150-450) k/uL Lymphocytes # (1.0-4.8) k/uL INR (<1.2) Sodium (137-145) mmol/L Glucose (74-99) mg/dL POC Glucose (mg/dL) 195 H 158 H 128 H (75-99) mg/dL Total Protein (6.3-8.2) g/dL Albumin (3.5-5.0) g/dL 06/20/19 06/20/19 06/20/19 Range/Units 12:18 13:01 13:55 RBC (4.30-5.90) m/uL Hgb (13.0-17.5) gm/dL Hct (39.0-53.0) % Plt Count (150-450) k/uL Lymphocytes # (1.0-4.8) k/uL INR (<1.2) Sodium (137-145) mmol/L Glucose (74-99) mg/dL POC Glucose (mg/dL) 119 H 114 H 136 H (75-99) mg/dL Total Protein (6.3-8.2) g/dL Albumin (3.5-5.0) g/dL 06/20/19 06/20/19 06/20/19 Range/Units 15:16 16:07 16:40 RBC (4.30-5.90) m/uL Hgb (13.0-17.5) gm/dL Hct (39.0-53.0) % Plt Count (150-450) k/uL Lymphocytes # (1.0-4.8) k/uL INR (<1.2) Sodium (137-145) mmol/L Glucose (74-99) mg/dL POC Glucose (mg/dL) 134 H 137 H 119 H (75-99) mg/dL Total Protein (6.3-8.2) g/dL Albumin (3.5-5.0) g/dL 06/20/19 06/20/19 06/20/19 Range/Units 17:52 19:06 20:20 RBC (4.30-5.90) m/uL Hgb (13.0-17.5) gm/dL Hct (39.0-53.0) % Plt Count (150-450) k/uL Lymphocytes # (1.0-4.8) k/uL INR (<1.2) Sodium (137-145) mmol/L Glucose (74-99) mg/dL POC Glucose (mg/dL) 166 H 172 H 140 H (75-99) mg/dL Total Protein (6.3-8.2) g/dL Albumin (3.5-5.0) g/dL 06/20/19 06/20/19 06/21/19 Range/Units 21:31 22:22 00:02 RBC (4.30-5.90) m/uL Hgb (13.0-17.5) gm/dL Hct (39.0-53.0) % Plt Count (150-450) k/uL Lymphocytes # (1.0-4.8) k/uL INR (<1.2) Sodium (137-145) mmol/L Glucose (74-99) mg/dL POC Glucose (mg/dL) 145 H 139 H 129 H (75-99) mg/dL Total Protein (6.3-8.2) g/dL Albumin (3.5-5.0) g/dL 06/21/19 06/21/19 06/21/19 Range/Units 01:09 02:09 04:30 RBC 2.67 L (4.30-5.90) m/uL Hgb 8.4 L (13.0-17.5) gm/dL Hct 24.8 L (39.0-53.0) % Plt Count 85 L (150-450) k/uL Lymphocytes # 0.6 L (1.0-4.8) k/uL INR (<1.2) Sodium (137-145) mmol/L Glucose (74-99) mg/dL POC Glucose (mg/dL) 132 H 133 H (75-99) mg/dL Total Protein (6.3-8.2) g/dL Albumin (3.5-5.0) g/dL 06/21/19 06/21/19 06/21/19 Range/Units 04:30 04:30 04:31 RBC (4.30-5.90) m/uL Hgb (13.0-17.5) gm/dL Hct (39.0-53.0) % Plt Count (150-450) k/uL Lymphocytes # (1.0-4.8) k/uL INR 1.2 H (<1.2) Sodium 135 L (137-145) mmol/L Glucose 116 H (74-99) mg/dL POC Glucose (mg/dL) 131 H (75-99) mg/dL Total Protein 5.0 L (6.3-8.2) g/dL Albumin 3.1 L (3.5-5.0) g/dL 06/21/19 06/21/19 06/21/19 Range/Units 05:39 06:19 07:14 RBC (4.30-5.90) m/uL Hgb (13.0-17.5) gm/dL Hct (39.0-53.0) % Plt Count (150-450) k/uL Lymphocytes # (1.0-4.8) k/uL INR (<1.2) Sodium (137-145) mmol/L Glucose (74-99) mg/dL POC Glucose (mg/dL) 135 H 125 H 123 H (75-99) mg/dL Total Protein (6.3-8.2) g/dL Albumin (3.5-5.0) g/dL 06/21/19 Range/Units 08:05 RBC (4.30-5.90) m/uL Hgb (13.0-17.5) gm/dL Hct (39.0-53.0) % Plt Count (150-450) k/uL Lymphocytes # (1.0-4.8) k/uL INR (<1.2) Sodium (137-145) mmol/L Glucose (74-99) mg/dL POC Glucose (mg/dL) 178 H (75-99) mg/dL Total Protein (6.3-8.2) g/dL Albumin (3.5-5.0) g/dL - Imaging and Cardiology Chest x-ray: report reviewed, image reviewed Assessment and Plan Assessment: 1. Coronary artery disease, status post four-vessel CABG 2. History of coronary artery disease with previous myocardial infarction and stent placement in 2000 and 2002 to the RCA 3. Ischemic cardiomyopathy with EF 40-45% 4. Hypertension 5. Hyperlipidemia 6. Diabetes mellitus with preoperative hemoglobin A1c 5.3% 7. Family history of premature coronary artery disease 8. Postoperative acute blood loss anemia Plan: 1. Continue aspirin, statin, Plavix, beta adrian therapy. Will increase beta adrian therapy as tolerated. Will need ROBY inhibitor due to cardiomyopathy when blood pressure will tolerate. 2. Wean O2 as tolerated. Encourage incentive spirometry use 10 times every hour while awake 3. Increase activity, ambulate as tolerated. PT/OT/cardiac rehab following 4. Will monitor daily labs and x-rays. Electrolyte replacement per protocol. No blood transfusion at this time 5. Pain control with current medication regimen 6. Insulin management per primary care service 7. GI/DVT prophylaxis 8. Bronchodilators per pulmonology 9. Discontinue Cordis, arterial line 11. Will discontinue mediastinal chest tube, keep pleural chest tube for another 24 hours 12. Levy catheter discontinued, a bladder scan and straight cath for greater than 300 mL [address] Will place transversely 3 S. cardiac stepdown unit. May transfer when bed available 14. Anticipate discharge to home with home care in 48-72 hours 15. More recommendations to follow Time with Patient: Greater than 30
[2019-06-21 08:52] LABS: Glucose,Whole Blood 140 mg/dL (75-99)
--- NOTE | 2019-06-21 08:57 | PN ---
PROGRESS NOTE Mr. Low is a 68-year-old male who presented to undergo coronary bypass grafting, he is doing well this morning. His breathing is stable. He is denying any symptoms of chest pain. He denies any dizziness. He is ambulating. He continued to be in sinus mechanism. Hemodynamically, he is stable. He continued to have ST-segment elevation on the monitor and on the EKG, but no associated symptoms. He continues to be on aspirin once a day, Lipitor 40 mg daily, Plavix 75 mg daily, isosorbide mononitrate 30 mg daily, and metoprolol tartrate 12.5 mg twice a day. PHYSICAL EXAMINATION: Blood pressure 140/50 with a heart rate in the 90s. LUNGS: A few crackles at the bases. HEART: Regular rate and rhythm, S1, S2. No S3. No rub. ABDOMEN: Soft, nontender. EXTREMITIES: No significant edema. LAB DATA: Revealed hemoglobin of 8.4, BUN and creatinine 20 and 0.83. Potassium of 4.3. Chest x-ray shows no acute infiltrate with very minimal pleural effusion. IMPRESSION: 1. Status post coronary bypass grafting. 2. Ischemic cardiomyopathy. 3. Elevation of the ST-segment changes with no chest pain which could represent pericarditis. 4. History of diabetes. RECOMMENDATION: I will re-initiate treatment with an an ROBY inhibitor. Continue his rest of medication. Increase his level of activity and depending on his progress, further recommendation will be made. MMODL / IJN: [id number] /
--- NOTE | 2019-06-21 10:58 | P.PN ---
Subjective Progress Note Date: 06/21/19 68-year-old white male patient of Dr. Prieto, with past medical history of hypertension, dyslipidemia, coronary artery disease with previous stent placement to the RCA in 2000 and in 2002, [id number] diabetes mellitus type 2, family history of coronary artery disease, psoriasis, who was having symptoms of shortness of breath with exertion especially in the cold weather. No complaints of chest pain, no orthopnea, syncope or palpitations. Patient had outpatient evaluation with a 2-D echocardiogram at Dr. Mari's office on O2 through 2019 which showed ejection fraction of 45%, mild mitral v alve regurgitation, mild aortic valve regurgitation and mild tricuspid valve regurgitation. Lexiscan Cardiolite stress test showed abnormal myocardial perfusion, with evidence of prior myocardial infarction involving the apex, inferior wall and inferior septal wall. Cardiac catheterization was completed on O2 2019, which demonstrated 30-40% stenosis to his proximal LAD, 99% stenosis to his mid LAD, and 90% stenosis to his circumflex coronary artery and 80% stenosis to his proximal segment of the RCA with a total stent occlusion in the mid segment of the distal RCA. Left ventriculogram showed EF of 40%. Patient is a lifetime nonsmoker, his preop spirometry showed FEV1 of 3.05 L or 85% of predicted, an FVC of 3.57 or 74% of predicted, showing mild restriction. Surgical revascularization was recommended and on 06/19/2019 patient underwent four-vessel bypass grafting by Dr. Wolff with BLACKBURN to LAD, SVG to the diagonal, SVG to the PDA, and SVG to the OM, exclusion of the left atrial appendage. Today is postoperative day 1, patient was extubated before 4 hours of the OR exit time. Intraoperatively patient received 650 mL of Cell Saver, 2500 mL and crystalloids, no blood products, and 750 mL and 5% albumin. This morning he seen in the intensive care unit, he is he is a bit somnolent, but arousable, answering questions appropriately, he states a little fatigued, but no acute distress, noncompressive shortness of breath, his pain is under good control. He is on 2 L of oxygen with a pulse ox of 95%, hemodynamically stable, lactated Ringer's infusing at a rate of 50 ML per hour, nitroglycerin is at 10 mics per kilo per minute, insulin drip is at 1.5 units per hour. In sinus mechanism with a controlled rate, cardiac output is 5.7, cardiac index is 2.6, CVP is 6, PA pressures of 23/11. Left pleural chest tube is in place with a total of 70 mL of serosanguineous output since his surgery, 2 mediastinal chest tubes with a total of 500 mL of serosanguineous output, no air leak noted. On 06/21/2019 patient seen in follow-up in the intensive care unit, patient is m ore awake on today's exam, is calm and comfortable, room air pulse ox is 93%, he is answering questions appropriately, oriented 3, afebrile, hemodynamically stable, maintenance IV fluids have been discontinued, IVs have been hep-locked. PA catheter was discontinued, only catheter was discontinued this morning. AV wires are grounded, patient in sinus mechanism with a rate of 98, hemodynamically stable, no vasoactive infusions. Today's labs have been reviewed showing white blood cell count of 7.9, hemoglobin of 8.4, platelet count of 85, INR 1.2, sodium is 135, the rest of electrolytes and renal profile were within normal limits. Today's chest x-ray has been reviewed showing very trace pleural effusions and bibasilar linear airspace disease likely atelectasis. No residual pneumothorax. 2 mediastinal chest tube output was 180 mL overnight of serosanguineous thin output, left pleural chest tube put out 310 mL of serosanguineous output, no air leak was noted. Lung sounds reveal dimi nished breath sounds at bilateral bases. Objective - Vital Signs Vital signs: Vital Signs Temp 98.2 F 06/21/19 08:00 Pulse 87 06/21/19 10:00 Resp 17 06/21/19 10:00 BP 110/61 06/21/19 10:00 Pulse Ox 93 L 06/21/19 10:00 Intake & Output 06/20/19 06/21/19 06/21/19 18:59 06:59 18:59 Intake Total 243.196 558.308 603.796 Output Total 300 875 35 Balance -56.804 -316.692 568.796 Weight 103.1 kg Intake: IV 217 309 104 Lactated Ringers 1,000 ml 190 240 80 @ 20 mls/hr IV .Q24H [facility] Rx#:[id number] Normal Saline pressure 27 69 24 Bag Intake, IV Titration 26.196 9.308 19.796 Amount Insulin Regular 100 unit 14.696 9.308 19.796 In Sodium Chloride 0.9% 100 ml @ Per Protocol IV .Q0M [facility] Rx#:[id number] Nitroglycerin-D5w Pmx 50 11.5 mg In Dextrose/Water 1 250ml.bag @ 10 MCG/MIN 3 mls/hr IV .Q24H [facility] Rx#: [id number] Oral 240 480 Output: Chest Tube Drainage 30 490 35 Left Pleural 10 310 15 Mediastinal X 2 20 180 20 Urine 270 385 0 Other: Voiding Method Indwelling Catheter Indwelling Catheter ABP, PAP, CO, CI - Last Documented Arterial Blood Pressure 99/44 Pulmonary Artery Pressure 16/7 Cardiac Output 5.7 Cardiac Index 2.6 - Exam GENERAL EXAM: Alert, very pleasant, 68-year-old white male, room air with a pulse ox of 96%, sitting up in the recliner comfortable in no apparent distress. HEAD: Normocephalic/atraumatic. EYES: Normal reaction of pupils, equal size. Conjunctiva pink, sclera white. NOSE: Clear with pink turbinates. THROAT: No erythema or exudates. NECK: No masses, no JVD, no thyroid enlargement, no adenopathy. CHEST: No chest wall deformity. Symmetrical expansion. Midsternal incision is clean dry and intact, covered with surgical dressing, 2 mediastinal and left pleural chest tubes are in place, connected to Pleur-evac, and there is 310 out of the LP, and a total of 180 mL of serosanguineous output in the mediastinal chest tubes 2, in the last 24 hours. Epicardial AV wires are grounded at this time LUNGS: Equal air entry with no crackles, wheeze, rhonchi or dullness. CVS: Regular rate and rhythm, normal S1 and S2, no gallops, no murmurs, no rubs. Transit rhythm is sinus rhythm in the 70s ABDOMEN: Soft, nontender. No hepatosplenomegaly, normal bowel sounds, no guarding or rigidity. EXTREMITIES: No clubbing, no edema, no cyanosis, 2+ pulses and upper and lower extremities. SCDs are in place MUSCULOSKELETAL: Muscle strength and tone normal. SPINE: No scoliosis or deformity SKIN: No rashes, right leg incision clean dry and intact, CENTRAL NERVOUS SYSTEM: Alert and oriented -3. No focal deficits, tone is normal in all 4 extremities. PSYCHIATRIC: Alert and oriented -3. Appropriate affect. Intact judgment and insight. - Labs CBC & Chem 7: 06/21/19 04:30 06/21/19 04:30 Labs: Abnormal Lab Results - Last 24 Hours (Table) 06/20/19 06/20/19 06/20/19 Range/Units 11:26 12:18 13:01 RBC (4.30-5.90) m/uL Hgb (13.0-17.5) gm/dL Hct (39.0-53.0) % Plt Count (150-450) k/uL Lymphocytes # (1.0-4.8) k/uL INR (<1.2) Sodium (137-145) mmol/L Glucose (74-99) mg/dL POC Glucose (mg/dL) 128 H 119 H 114 H (75-99) mg/dL Total Protein (6.3-8.2) g/dL Albumin (3.5-5.0) g/dL 06/20/19 06/20/19 06/20/19 Range/Units 13:55 15:16 16:07 RBC (4.30-5.90) m/uL Hgb (13.0-17.5) gm/dL Hct (39.0-53.0) % Plt Count (150-450) k/uL Lymphocytes # (1.0-4.8) k/uL INR (<1.2) Sodium (137-145) mmol/L Glucose (74-99) mg/dL POC Glucose (mg/dL) 136 H 134 H 137 H (75-99) mg/dL Total Protein (6.3-8.2) g/dL Albumin (3.5-5.0) g/dL 06/20/19 06/20/19 06/20/19 Range/Units 16:40 17:52 19:06 RBC (4.30-5.90) m/uL Hgb (13.0-17.5) gm/dL Hct (39.0-53.0) % Plt Count (150-450) k/uL Lymphocytes # (1.0-4.8) k/uL INR (<1.2) Sodium (137-145) mmol/L Glucose (74-99) mg/dL POC Glucose (mg/dL) 119 H 166 H 172 H (75-99) mg/dL Total Protein (6.3-8.2) g/dL Albumin (3.5-5.0) g/dL 06/20/19 06/20/19 06/20/19 Range/Units 20:20 21:31 22:22 RBC (4.30-5.90) m/uL Hgb (13.0-17.5) gm/dL Hct (39.0-53.0) % Plt Count (150-450) k/uL Lymphocytes # (1.0-4.8) k/uL INR (<1.2) Sodium (137-145) mmol/L Glucose (74-99) mg/dL POC Glucose (mg/dL) 140 H 145 H 139 H (75-99) mg/dL Total Protein (6.3-8.2) g/dL Albumin (3.5-5.0) g/dL 06/21/19 06/21/19 06/21/19 Range/Units 00:02 01:09 02:09 RBC (4.30-5.90) m/uL Hgb (13.0-17.5) gm/dL Hct (39.0-53.0) % Plt Count (150-450) k/uL Lymphocytes # (1.0-4.8) k/uL INR (<1.2) Sodium (137-145) mmol/L Glucose (74-99) mg/dL POC Glucose (mg/dL) 129 H 132 H 133 H (75-99) mg/dL Total Protein (6.3-8.2) g/dL Albumin (3.5-5.0) g/dL 06/21/19 06/21/19 06/21/19 Range/Units 04:30 04:30 04:30 RBC 2.67 L (4.30-5.90) m/uL Hgb 8.4 L (13.0-17.5) gm/dL Hct 24.8 L (39.0-53.0) % Plt Count 85 L (150-450) k/uL Lymphocytes # 0.6 L (1.0-4.8) k/uL INR 1.2 H (<1.2) Sodium 135 L (137-145) mmol/L Glucose 116 H (74-99) mg/dL POC Glucose (mg/dL) (75-99) mg/dL Total Protein 5.0 L (6.3-8.2) g/dL Albumin 3.1 L (3.5-5.0) g/dL 06/21/19 06/21/19 06/21/19 Range/Units 04:31 05:39 06:19 RBC (4.30-5.90) m/uL Hgb (13.0-17.5) gm/dL Hct (39.0-53.0) % Plt Count (150-450) k/uL Lymphocytes # (1.0-4.8) k/uL INR (<1.2) Sodium (137-145) mmol/L Glucose (74-99) mg/dL POC Glucose (mg/dL) 131 H 135 H 125 H (75-99) mg/dL Total Protein (6.3-8.2) g/dL Albumin (3.5-5.0) g/dL 06/21/19 06/21/19 06/21/19 Range/Units 07:14 08:05 08:51 RBC (4.30-5.90) m/uL Hgb (13.0-17.5) gm/dL Hct (39.0-53.0) % Plt Count (150-450) k/uL Lymphocytes # (1.0-4.8) k/uL INR (<1.2) Sodium (137-145) mmol/L Glucose (74-99) mg/dL POC Glucose (mg/dL) 123 H 178 H 140 H (75-99) mg/dL Total Protein (6.3-8.2) g/dL Albumin (3.5-5.0) g/dL Assessment and Plan Plan: Assessment: #1. Multivessel coronary artery disease, status post four-vessel bypass grafting, with BLACKBURN to LAD, SVG to the diagonal, SVG to the PDA, SVG to the OM, and left atrial appendage exclusion, postoperative day 2 #2. Routine ventilator management, patient was successfully extubated in less than 4 hours of the OR exit time of 1535, on 06/19/2019, extubated at 1928 on 06/19/2019 #3. Postoperative blood loss anemia, normal outcome of bypass grafting surgery, has not required transfusion #4. History of coronary artery disease with previous stent placement to the RCA in 2001 in 2002 #5. Diabetes mellitus type 2 #6. Hypertension #7. Dyslipidemia #8. Never smoker Plan: Patient is doing well, no acute distress, he is on room air, denies any shortness of breath, work on incentive spirometer, tolerating ablation, hemodynamically stable, in sinus mechanism, IV fluids have been hep-locked, no nausea or vomiting, tolerating oral intake. CT surgery is following, and is planning on removing the 2 mediastinal chest tubes today, Levy catheter has been discontinued, PA catheter has been discontinued, possibly to the stepdown floor later today. I performed a history & physical examination of the patient and discussed their management with my nurse practitioner, Pamela Melendez. I reviewed the nurse practitioner's note and agree with the documented findings and plan of care. Lung sounds are positive for diminished breath sounds. The findings and the impression was discussed with the patient. I attest to the documentation by the nurse practitioner. Time with Patient: Less than 30
[2019-06-21] MEDS: LISINOPRIL 2.5 MG TAB PO SCH ×2 (11:03→20:33)
[2019-06-21] MEDS: INSULIN ASPART (NovoLOG) 100 UNIT/ML VIAL SQ SCH ×3 (12:01→20:33)
[2019-06-21 12:02] LABS: Glucose,Whole Blood 121 mg/dL (75-99)
[2019-06-21] MEDS ORDERED: METOPROLOL TARTRATE 12.5 MG TAB PO STA (12:15)
[2019-06-21 12:33] VITALS: BMI 30.8
[2019-06-21] MEDS: METOCLOPRAMIDE 5 MG/ML 2 ML VIAL IVP PRN ×2 (13:03→17:18)
[2019-06-21] MEDS ORDERED: ACETAMINOPHEN TAB 500 MG TAB PO PRN (14:36)
[2019-06-21] MEDS: METOPROLOL TARTRATE 25 MG TAB PO SCH ×2 (15:42→21:38)
[2019-06-21 17:00] LABS: Glucose,Whole Blood 133 mg/dL (75-99)
--- NOTE | 2019-06-21 20:03 | P.PN ---
Progress Note - Text Progress Note Date: 06/21/19 - Chief Complaint Coronary bypass Consultation: This is a pleasant 68-year-old patient of Dr. Jalen tanner. Chronic stable medical conditions include diabetes, hypertension, hyperlipidemia, psoriasis. Patient status post coronary bypass. Today-sitting up in a chair. Somewhat short of breath. Tachycardic. Awake. Chest tubes in place. Review of systems: Was done for constitutional, cardiovascular, GI, pulmonary. relevant finding as above. Did ambulate a bit. Did eat a fair amount of breakfast and lunch. Active Medications Acetaminophen (Tylenol Tab) 1,000 mg PO Q6HR PRN PRN Reason: Fever and/ or Pain Hydrocodone Bitart/Acetaminophen ([place] 5-325) 2 each PO Q4HR PRN PRN Reason: Severe Pain Last Admin: 06/21/19 02:46 Dose: 2 each Documented by: Hydrocodone Bitart/Acetaminophen ([place] 5-325) 1 each PO Q4HR PRN PRN Reason: Moderate Pain Last Admin: 06/20/19 17:48 Dose: 1 each Documented by: Albuterol/Ipratropium (Duoneb 0.5 Mg-3 Mg/3 Ml Soln) 3 ml INHALATION RT-Q2H PRN PRN Reason: Shortness Of Breath Or Wheezing Albuterol/Ipratropium (Duoneb 0.5 Mg-3 Mg/3 Ml Soln) 3 ml INHALATION RT-QID [facility] Last Admin: 06/21/19 19:53 Dose: 3 ml Documented by: Aspirin (Aspirin) 325 mg PO DAILY [facility] Last Admin: 06/21/19 07:57 Dose: 325 mg Documented by: Atorvastatin Calcium (Lipitor) 40 mg PO DAILY [facility] Last Admin: 06/21/19 07:57 Dose: 40 mg Documented by: Benzocaine/Menthol (Cepacol Lozenge) 1 each MUCOUS MEM Q2H PRN PRN Reason: Sore Throat Bisacodyl (Dulcolax) 10 mg RECTAL DAILY PRN PRN Reason: Constipation Cholecalciferol (Vitamin D3 (25 Mcg = 1000 Iu)) 4,000 unit PO DAILY [facility] Last Admin: 06/21/19 07:57 Dose: 4,000 unit Documented by: Clopidogrel Bisulfate (Plavix) 75 mg PO DAILY [facility] Last Admin: 06/21/19 07:57 Dose: 75 mg Documented by: Colchicine (Colcrys) 0.6 mg PO BID [facility] Heparin Sodium (Porcine) (Heparin) 5,000 unit SQ Q8HR [facility] Last Admin: 06/21/19 15:12 Dose: 5,000 unit Documented by: Amiodarone HCl 150 mg/ (Dextrose/Water) 103 mls @ 618 mls/hr IV .Q10M PRN; Protocol PRN Reason: A.FIB/FLUTTER Amiodarone HCl 360 mg/ (Dextrose/Water) 200 mls @ 33.333 mls/hr IV .Q6H PRN; Protocol PRN Reason: A.FIB/FLUTTER Amiodarone HCl 300 mg/ (Dextrose/Water) 250 mls @ 25 mls/hr IV .Q10H PRN; Protocol PRN Reason: A.FIB/FLUTTER Insulin Aspart (Novolog) 0 unit SQ ACHS [facility]; Protocol Last Admin: 06/21/19 17:17 Dose: 1 unit Documented by: Isosorbide Mononitrate (Imdur) 30 mg PO DAILY@1200 [facility] Last Admin: 06/21/19 09:08 Dose: Not Given Documented by: Ketorolac Tromethamine (Toradol) 15 mg IVP Q6HR [facility] Stop: 06/24/19 18:01 Last Admin: 06/21/19 17:16 Dose: 15 mg Documented by: Lisinopril (Zestril) 2.5 mg PO BID [facility] Last Admin: 06/21/19 11:03 Dose: 2.5 mg Documented by: Magnesium Hydroxide (Milk Of Magnesia) 2,400 mg PO BID PRN PRN Reason: Constipation Last Admin: 06/21/19 13:03 Dose: 2,400 mg Documented by: Metoclopramide HCl (Reglan) 10 mg IVP Q4H PRN PRN Reason: Nausea And Vomiting Last Admin: 06/21/19 17:18 Dose: 10 mg Documented by: Metoprolol Tartrate (Lopressor) 25 mg PO TID [facility] Last Admin: 06/21/19 15:42 Dose: 25 mg Documented by: Miscellaneous Information (Magnesium Per Protocol) 1 each MISCELLANE DAILY PRN; Protocol PRN Reason: Per Protocol Miscellaneous Information (Phosphorus Per Protocol) 1 each MISCELLANE DAILY PRN; Protocol PRN Reason: Per Protocol Miscellaneous Information (Potassium Per Protocol) 1 each MISCELLANE DAILY PRN; Protocol PRN Reason: Per Protocol Multivitamins (Theragran) 1 each PO DAILY [facility] Last Admin: 06/21/19 07:57 Dose: 1 each Documented by: Mupirocin (Bactroban Oint) 1 applic NASAL BID [facility] Stop: 06/22/19 21:01 Last Admin: 06/21/19 07:58 Dose: 1 applic Documented by: Ondansetron HCl (Zofran) 4 mg IVP Q6HR PRN PRN Reason: Nausea And Vomiting Last Admin: 06/20/19 06:58 Dose: 4 mg Documented by: Pantoprazole Sodium (Protonix) 40 mg PO AC-BRKFST [facility] Last Admin: 06/21/19 07:21 Dose: 40 mg Documented by: Senna/Docusate Sodium (Senokot-S) 2 each PO HS [facility] Last Admin: 06/20/19 20:42 Dose: 2 each Documented by: Sodium Chloride (Saline Flush) 10 ml IV BID [facility] Last Admin: 06/21/19 07:58 Dose: 10 ml Documented by: Physical examination: VITAL SIGNS: 98.2, 93, 23, 141/45, peripheral percent on room air GENERAL: Sitting on a chair, short of breath awake but tired EYES: Pupils equal. Conjunctiva pale. HEENT: External appearance of nose and ears normal, oral cavity grossly normal. NECK: JVD unable to assess; masses not palpable. HEART: First and second heart sounds are normal; no edema. LUNGS: Respiratory rate increased; decreased breath sounds. ABDOMEN: Soft, nontender, liver spleen not palpable, no masses palpable. PSYCH: Alert and oriented x3; mood and affect tired CHEST wall: [address] INVESTIGATIONS, reviewed in the clinical context: White count 7.9 hemoglobin 8.4 platelets 85 potassium 4.3 creatinine 0.83 Previous testing Lab work from June 11 showed a hemoglobin of 14.7 and a platelets of 213 Potassium 4.8 creatinine 0.78 Chest x-ray film-atelectasis Assessment: -Coronary bypass, currently with 2 mediastinal and one left pleural chest tube -Coronary artery disease -Diabetes mellitus type 2 on oral hypoglycemic -Hyperlipidemia -Essential hypertension -psoriases -Acute postprocedure blood loss anemia expected from surgery -Dilutional thrombocytopenia -Obesity BMI 30.7 Plan: Continue current medication treatment plan. Care was discussed with the patient. Thank you Dr. Wolff.
[2019-06-21 20:29] LABS: Glucose,Whole Blood 168 mg/dL (75-99)
[2019-06-21] MEDS: SENNOSIDES-DOCUSATE SODIUM 1 EACH TAB PO SCH (20:34)
[2019-06-21] MEDS: COLCHICINE 0.6 MG EACH PO SCH (20:34)
[2019-06-21] MEDS ORDERED: METOPROLOL TARTRATE 25 MG TAB PO SCH (21:00)
[2019-06-22] MEDS: KETOROLAC 30 MG/ML 1 ML VIAL IVP SCH ×5 (00:33→23:22)
[2019-06-22] MEDS: HEPARIN SODIUM,PORCINE 5,000 UNIT/ML 1 ML VIAL SQ SCH ×4 (00:33→23:23)
[2019-06-22 05:05] LABS: Basophils % (A) 1 %; Eosinophils # (A) 0.2 k/uL (0-0.7); Eosinophils % (A) 2 %; HCT 24.6 % (39.0-53.0); HGB 8.3 gm/dL (13.0-17.5); Lymphocytes # (A) 0.9 k/uL (1.0-4.8); Lymphocytes % (A) 12 %; MCH 31.5 pg (25.0-35.0); MCHC 33.7 g/dL (31.0-37.0); MCV 93.3 fL (80.0-100.0); Mean Platelet Volume 8.7; Monocytes # (A) 0.5 k/uL (0-1.0); Monocytes % (A) 6 %; Neutrophils # (A) 5.7 k/uL (1.3-7.7); Neutrophils % (A) 76 %; Platelet Count 101 k/uL (150-450); RBC 2.64 m/uL (4.30-5.90); RDW 13.3 % (11.5-15.5); WBC 7.5 k/uL (3.8-10.6)
[2019-06-22 05:49] LABS: ALT 20 U/L (4-49); AST 27 U/L (17-59); African American GFR (CKD) >90 (>60 ml/min/1.73 sqM); Albumin 3.4 g/dL (3.5-5.0); Alkaline Phosphatase 63 U/L (38-126); Anion Gap 7 mmol/L; Blood Urea Nitrogen 26 mg/dL (9-20); Calcium 8.6 mg/dL (8.4-10.2); Carbon Dioxide 26 mmol/L (22-30); Chloride 98 mmol/L (98-107); Glucose 109 mg/dL (74-99); Non-African American GFR(CKD) 88 (>60 ml/min/1.73 sqM); Potassium 4.7 mmol/L (3.5-5.1); Sodium 131 mmol/L (137-145); Total Bilirubin 0.8 mg/dL (0.2-1.3); Total Protein 5.3 g/dL (6.3-8.2)
[2019-06-22 06:36] LABS: Glucose,Whole Blood 112 mg/dL (75-99)
[2019-06-22] MEDS: INSULIN ASPART (NovoLOG) 100 UNIT/ML VIAL SQ SCH ×4 (06:36→20:31)
[2019-06-22] MEDS: PANTOPRAZOLE 40 MG TABLET PO SCH (06:44)
--- NOTE | 2019-06-22 07:29 | XR ---
EXAMINATION TYPE: XR chest 1V portable DATE OF EXAM: 06/22/2019 CLINICAL HISTORY: Difficulty breathing progress study. Postopen cardiac surgery. TECHNIQUE: Single AP portable upright view of the chest is obtained. COMPARISON: Chest x-ray from one day earlier and older studies. FINDINGS: Intervertebral removal of right internal jugular cordis sheath. Left-sided thoracostomy tu be demonstrated. Overlying sternal wires and mediastinal clips redemonstrated. Persistent low lung vo lumes and cardiomegaly with patchy bibasilar opacities. No pneumothorax seen bilaterally. Mediastinal drainage catheter not as well seen and may have been removed. IMPRESSION: Chronic changes and cardiomegaly with right greater than left bibasilar atelectasis and/o r infiltrate. Improved aeration left mid and lower lung noted since prior study.
[2019-06-22] MEDS: ATORVASTATIN 40 MG TAB PO SCH (08:33)
[2019-06-22] MEDS: ASPIRIN 325 MG TAB PO SCH (08:33)
[2019-06-22] MEDS: CLOPIDOGREL 75 MG TAB PO SCH (08:34)
[2019-06-22] MEDS: COLCHICINE 0.6 MG EACH PO SCH ×2 (08:34→20:30)
[2019-06-22] MEDS: LISINOPRIL 2.5 MG TAB PO SCH ×2 (08:34→20:30)
[2019-06-22] MEDS: CHOLECALCIFEROL 1,000 UNIT TAB PO SCH (08:34)
[2019-06-22] MEDS: MULTIVITAMINS, THERA 1 EACH TAB PO SCH (08:35)
[2019-06-22] MEDS: METOPROLOL TARTRATE 25 MG TAB PO SCH (08:35)
[2019-06-22] MEDS: MUPIROCIN 2% OINT 22 GM TUBE NASAL SCH (08:35)
[2019-06-22] MEDS: IPRATROPIUM-ALBUTEROL 3 ML NEB INHALATION SCH ×4 (08:55→20:50)
[2019-06-22] MEDS ORDERED: METOPROLOL TARTRATE 25 MG TAB PO ONE (09:00)
[2019-06-22] MEDS ORDERED: POTASSIUM CHLORIDE ER 10 MEQ TAB.ER.PRT PO STA (09:00)
[2019-06-22] MEDS ORDERED: FUROSEMIDE 10 MG/ML 2 ML VIAL IV ONE (09:00)
--- NOTE | 2019-06-22 09:37 | P.PN ---
Subjective Progress Note Date: 06/22/19 68-year-old white male patient of Dr. Prieto, with past medical history of hypertension, dyslipidemia, coronary artery disease with previous stent placement to the RCA in 2000 and in 2002, [id number] diabetes mellitus type 2, family history of coronary artery disease, psoriasis, who was having symptoms of shortness of breath with exertion especially in the cold weather. No complaints of chest pain, no orthopnea, syncope or palpitations. Patient had outpatient evaluation with a 2-D echocardiogram at Dr. Mari's office on O2 through 2019 which showed ejection fraction of 45%, mild mitral valve regurgitation, mild aortic valve regurgitation and mild tricuspid valve regurgitation. Lexiscan Cardiolite stress test showed abnormal myocardial perfusion, with evidence of prior myocardial infarction involving the apex, inferior wall and inferior septal wall. Cardiac catheterization was completed on 2019, which demonstrated 30-40% stenosis to his proximal LAD, 99% stenosis to his mid LAD, and 90% stenosis to his circumflex coronary artery and 80% stenosis to his proximal segment of the RCA with a total stent occlusion in the mid segment of the distal RCA. Left ventriculogram showed EF of 40%. Patient is a lifetime nonsmoker, his preop spirometry showed FEV1 of 3.05 L or 85% of predicted, an FVC of 3.57 or 74% of predicted, showing mild restriction. Surgical revascularization was recommended and on 06/19/2019 patient underwent four-vessel bypass grafting by Dr. Wolff with BLACKBURN to LAD, SVG to the diagonal, SVG to the PDA, and SVG to the OM, exclusion of the left atrial appendage. Today is postoperative day 1, patient was extubated before 4 hours of the OR exit time. Intraoperatively patient received 650 mL of Cell Saver, 2500 mL and crystalloids, no blood products, and 750 mL and 5% albumin. This morning he seen in the intensive care unit, he is he is a bit somnolent, but arousable, answering questions appropriately, he states a little fatigued, but no acute distress, noncompressive shortness of breath, his pain is under good control. He is on 2 L of oxygen with a pulse ox of 95%, hemodynamically stable, lactated Ringer's infusing at a rate of 50 ML per hour, nitroglycerin is at 10 mics per kilo per minute, insulin drip is at 1.5 units per hour. In sinus mechanism with a controlled rate, cardiac output is 5.7, cardiac index is 2.6, CVP is 6, PA pressures of 23/11. Left pleural chest tube is in place with a total of 70 mL of serosanguineous output since his surgery, 2 mediastinal chest tubes with a total of 500 mL of serosanguineous output, no air leak noted. On 06/21/2019 patient seen in follow-up in the intensive care unit, patient is more awake on today's exam, is calm and comfortable, room air pulse ox is 93%, he is answering questions appropriately, oriented 3, afebrile, hemodynamically stable, maintenance IV fluids have been discontinued, IVs have been hep-locked. PA catheter was discontinued, only catheter was discontinued this morning. AV wires are grounded, patient in sinus mechanism with a rate of 98, hemodynamicall y stable, no vasoactive infusions. Today's labs have been reviewed showing white blood cell count of 7.9, hemoglobin of 8.4, platelet count of 85, INR 1.2, sodium is 135, the rest of electrolytes and renal profile were within normal limits. Today's chest x-ray has been reviewed showing very trace pleural effusions and bibasilar linear airspace disease likely atelectasis. No residual pneumothorax. 2 mediastinal chest tube output was 180 mL overnight of serosanguineous thin output, left pleural chest tube put out 310 mL of seros On 06/22/2019, the patient is being seen for a follow-up. Ultrasound the chest is in the minimum and the plan is to remove the chest tube today. He is hemodynamically stable. No respiratory difficulties and the pulse ox is 94% on room air. On his cardiac rhythm, there is still some ST segment elevations which was think it may be related to an underlying pericarditis and the patient is currently on colchicine. No nausea. No vomiting. No abdominal pain. Using incentive spirometer and is pulling approximately 1200 mL of air. No other significant events overnight. No altered mentation. This is postop day #3 Objective - Vital Signs Vital signs: Vital Signs Temp 98.0 F 06/22/19 08:00 Pulse 98 06/22/19 09:10 Resp 16 06/22/19 09:00 BP 111/57 06/22/19 09:00 Pulse Ox 98 06/22/19 09:00 Intake & Output 06/21/19 06/22/19 06/22/19 18:59 06:59 18:59 Intake Total 963.796 200 250 Output Total 105 330 100 Balance 858.796 -130 150 Weight 103.1 kg Intake: IV 104 Lactated Ringers 1,000 ml 80 @ 20 mls/hr IV .Q24H [facility] Rx#:[id number] Normal Saline pressure 24 Bag Intake, IV Titration 19.796 Amount Insulin Regular 100 unit 19.796 In Sodium Chloride 0.9% 100 ml @ Per Protocol IV .Q0M [facility] Rx#:[id number] Oral 840 200 250 Output: Chest Tube Drainage 105 80 Left Pleural 55 80 Mediastinal X 2 50 Urine 0 250 100 Other: Voiding Method Bedside Commode Bedside Commode Bedside Commode # Voids 1 0 1 # Bowel Movements 1 ABP, PAP, CO, CI - Last Documented Arterial Blood Pressure 99/44 Pulmonary Artery Pressure 16/7 Cardiac Output 5.7 Cardiac Index 2.6 - Exam GENERAL EXAM: Alert, very pleasant, 68-year-old white male, room air with a pulse ox of 96%, sitting up in the recliner comfortable in no apparent distress. The patient is on room air oxygen HEAD: Normocephalic/atraumatic. EYES: Normal reaction of pupils, equal size. Conjunctiva pink, sclera white. NOSE: Clear with pink turbinates. THROAT: No erythema or exudates. NECK: No masses, no JVD, no thyroid enlargement, no adenopathy. CHEST: No chest wall deformity. Symmetrical expansion. Midsternal incision is clean dry and intact, chest tubes have been removed and the epicardial AV wires were also removed. LUNGS: Equal air entry with no crackles, wheeze, rhonchi or dullness. Breath sounds are slightly more diminished on the right lung base. CVS: Regular rate and rhythm, normal S1 and S2, no gallops, no murmurs, no rubs. Transit rhythm is sinus rhythm in the 70s ABDOMEN: Soft, nontender. No hepatosplenomegaly, normal bowel sounds, no guarding or rigidity. EXTREMITIES: No clubbing, no edema, no cyanosis, 2+ pulses and upper and lower extremities. SCDs are in place MUSCULOSKELETAL: Muscle strength and tone normal. SPINE: No scoliosis or deformity SKIN: No rashes, right leg incision clean dry and intact, CENTRAL NERVOUS SYSTEM: Alert and oriented -3. No focal deficits, tone is normal in all 4 extremities. PSYCHIATRIC: Alert and oriented -3. Appropriate affect. Intact judgment and insight. - Labs CBC & Chem 7: 06/22/19 04:44 06/22/19 04:44 Labs: Abnormal Lab Results - Last 24 Hours (Table) 06/21/19 06/21/19 06/21/19 Range/Units 11:59 16:58 20:28 RBC (4.30-5.90) m/uL Hgb (13.0-17.5) gm/dL Hct (39.0-53.0) % Plt Count (150-450) k/uL Lymphocytes # (1.0-4.8) k/uL Sodium (137-145) mmol/L BUN (9-20) mg/dL Glucose (74-99) mg/dL POC Glucose (mg/dL) 121 H 133 H 168 H (75-99) mg/dL Total Protein (6.3-8.2) g/dL Albumin (3.5-5.0) g/dL 06/22/19 06/22/19 06/22/19 Range/Units 04:44 04:44 06:33 RBC 2.64 L (4.30-5.90) m/uL Hgb 8.3 L (13.0-17.5) gm/dL Hct 24.6 L (39.0-53.0) % Plt Count 101 L (150-450) k/uL Lymphocytes # 0.9 L (1.0-4.8) k/uL Sodium 131 L (137-145) mmol/L BUN 26 H (9-20) mg/dL Glucose 109 H (74-99) mg/dL POC Glucose (mg/dL) 112 H (75-99) mg/dL Total Protein 5.3 L (6.3-8.2) g/dL Albumin 3.4 L (3.5-5.0) g/dL Assessment and Plan Plan: #1. Multivessel coronary artery disease, status post four-vessel bypass grafting, with BLACKBURN to LAD, SVG to the diagonal, SVG to the PDA, SVG to the OM, and left atrial appendage exclusion, postoperative day 3 #2. Post thoracotomy and the chest tubes are all removed and the patient is currently on room air. #3. Postoperative blood loss anemia, normal outcome of bypass grafting surgery, has not required transfusion, the hemoglobin is stable for now and is running at 8.3. #4. History of coronary artery disease with previous stent placement to the RCA in 2000 in 2002 #5. Diabetes mellitus type 2, on sliding scale coverage #6. Hypertension #7. Dyslipidemia on Lipitor Plan Continue using incentive spirometer. Chest tubes have been removed Blood sugars under good control Hemoglobin stable at 8.3 Patient is stable. We'll ambulate the patient. We will likely transfer to a cardiac floor later on.
--- NOTE | 2019-06-22 10:40 | PN ---
PROGRESS NOTE Mr. Low is a 68-year-old male who has underwent coronary bypass grafting. He is doing well this morning, ambulating without difficulty, denying any chest pain. He continues to be in sinus mechanism. He has no dizziness or palpitation. No nausea or vomiting. He continues to be on aspirin once a day, Plavix 75 mg daily, Lipitor 40 mg daily, metoprolol tartrate 50 mg twice a day. PHYSICAL EXAMINATION: Blood pressure 111/50 with a heart rate in the 90s. Lungs with mild decrease in breath sounds. No wheezes. HEART: Regular rate and rhythm S1, S2. No S3. No rub. ABDOMEN: Soft, nontender. EXTREMITIES: With some mild edema. LAB DATA: Lab data revealed BUN and creatinine 26 and 0.89, hemoglobin of 8.3. IMPRESSION: 1. Status post coronary artery bypass grafting. 2. History of prior percutaneous revascularization. 3. Ischemic cardiomyopathy. 4. Elevation of the ST-segment could represent pericarditis. 5. Hyperlipidemia. 6. Diabetes mellitus. RECOMMENDATIONS: I will repeat his EKG tomorrow, continue the rest of his medical regimen. Continue to increase his level of activity and depending on his progress, further recommendations will be made. MMODL / IJN: [id number] /
--- NOTE | 2019-06-22 11:19 | P.PN ---
Subjective Progress Note Date: 06/22/19 Principal diagnosis: Coronary artery disease. Past medical history significant for coronary artery disease and previous myocardial infarction with stent placement in 2000 and 2002 to the RCA, ischemic cardiomyopathy with EF 40-45%, hypertension, hyperlipidemia, diabetes mellitus with preoperative hemoglobin A1c 5.3%, and family history of premature coronary artery disease. POD #3 coronary artery bypass grafting 4 vessels, left internal mammary artery to the left anterior descending coronary artery, a reverse greater saphenous vein graft to the diagonal coronary artery, a reverse greater saphenous vein graft to posterior descending coronary artery, a reverse greater saphenous vein graft to the obtuse marginal coronary artery, endoscopic harvesting of the right greater saphenous vein, epi-aortic ultrasound, intraoperative transesophageal echocardiogram, ligation of left atrial appendage using a 35 mm AtriCure clip. Postoperative acute blood loss anemia, expected outcome of surgery due to hemodilution and cardiopulmonary bypass pump. The patient is sitting up to bedside chair in the intensive care unit. He is in no acute distress. Denies any complaints of pain or shortness of breath at this time. He remained hemodynamically stable and is currently on no inotropic or pressor support. Bedside telemetry showing normal sinus rhythm heart rate 98. Oxygen saturations are 95% on room air and he is achieving 1500 mL on his incentive spirometry. Left pleural chest tube remains in place to low continuous wall suction -20 cm H2O. No air leak is present. 40 mL of thin serosanguineous drainage in the last 8 hours and 150 mL output in the last 24 hours. His Levy catheter was discontinued yesterday and he has been urinating without difficulty with 250 mL output in the last 8 hours. The patient reports his bowels did move this morning. He has been tolerating oral intake. He remains afebrile the last 24 hours. Objective - Vital Signs Vital signs: Vital Signs Temp 98.0 F 06/22/19 08:00 Pulse 98 06/22/19 09:10 Resp 16 06/22/19 09:00 BP 111/57 06/22/19 09:00 Pulse Ox 98 06/22/19 09:00 Intake & Output 06/21/19 06/22/19 06/22/19 18:59 06:59 18:59 Intake Total 963.796 200 250 Output Total 105 330 100 Balance 858.796 -130 150 Weight 103.1 kg Intake: IV 104 Lactated Ringers 1,000 ml 80 @ 20 mls/hr IV .Q24H [facility] Rx#:[id number] Normal Saline pressure 24 Bag Intake, IV Titration 19.796 Amount Insulin Regular 100 unit 19.796 In Sodium Chloride 0.9% 100 ml @ Per Protocol IV .Q0M [facility] Rx#:[id number] Oral 840 200 250 Output: Chest Tube Drainage 105 80 Left Pleural 55 80 Mediastinal X 2 50 Urine 0 250 100 Other: Voiding Method Bedside Commode Bedside Commode Bedside Commode # Voids 1 0 1 # Bowel Movements 1 ABP, PAP, CO, CI - Last Documented Arterial Blood Pressure 99/44 Pulmonary Artery Pressure 16/7 Cardiac Output 5.7 Cardiac Index 2.6 - Constitutional General appearance: Present: cooperative, no acute distress, obese - Respiratory Details: Lung sounds essentially clear throughout. No wheezes, crackles or rhonchi. Respirations are symmetrical and nonlabored. Oxygen saturation are 95% on room air. Achieving 1500 mL on his incentive spirometry. Left pleural chest tube remains in place to low continuous wall suction -20 cm H2O. 40 mL of thin serosanguineous drainage in the last 8 hours and 150 mL output in the last 24 hours. - Cardiovascular Details: Regular rhythm and rate. S1 and S2 present, negative for S3, gallop or murmur. Sternum is stable. Bedside telemetry showing normal sinus rhythm with global ST elevation heart rate 98. Heart hugger is in place and he is demonstrating appropriate use. Atrial and ventricular epicardial pacemaker wires are in place and grounded. Knee-high sequential compression devices and LAMBERTO hose in place to his bilateral lower extremities. No edema present. - Gastrointestinal Gastrointestinal Comment(s): Abdomen is soft, nontender and nondistended. Active bowel sounds present in all 4 abdominal quadrants. Tolerating oral intake. No guarding or rigidity. Bowel movement this a.m. - Genitourinary Genitourinary Comment(s): Voiding clear yellow urine. - Integumentary Integumentary Comment(s): Skin is warm and dry. No clubbing or cyanosis is present. Midline sternal incision is clean, dry and approximated. No drainage or redness is present. Dressing is clean and dry. Right lower extremity EVH site clean, dry and approximated. No drainage or redness is present. - Neurologic Neurologic: Present: CNII-XII intact - Musculoskeletal Musculoskeletal: Present: gait normal, generalized weakness, strength equal bilaterally - Psychiatric Psychiatric: Present: A&O x's 3, appropriate affect, intact judgment & insight - Allied health notes Allied health notes reviewed: nursing - Labs CBC & Chem 7: 06/22/19 04:44 06/22/19 04:44 Labs: Abnormal Lab Results - Last 24 Hours (Table) 06/21/19 06/21/19 06/21/19 Range/Units 11:59 16:58 20:28 RBC (4.30-5.90) m/uL Hgb (13.0-17.5) gm/dL Hct (39.0-53.0) % Plt Count (150-450) k/uL Lymphocytes # (1.0-4.8) k/uL Sodium (137-145) mmol/L BUN (9-20) mg/dL Glucose (74-99) mg/dL POC Glucose (mg/dL) 121 H 133 H 168 H (75-99) mg/dL Total Protein (6.3-8.2) g/dL Albumin (3.5-5.0) g/dL 06/22/19 06/22/19 06/22/19 Range/Units 04:44 04:44 06:33 RBC 2.64 L (4.30-5.90) m/uL Hgb 8.3 L (13.0-17.5) gm/dL Hct 24.6 L (39.0-53.0) % Plt Count 101 L (150-450) k/uL Lymphocytes # 0.9 L (1.0-4.8) k/uL Sodium 131 L (137-145) mmol/L BUN 26 H (9-20) mg/dL Glucose 109 H (74-99) mg/dL POC Glucose (mg/dL) 112 H (75-99) mg/dL Total Protein 5.3 L (6.3-8.2) g/dL Albumin 3.4 L (3.5-5.0) g/dL - Imaging and Cardiology Chest x-ray: report reviewed, image reviewed Assessment and Plan Assessment: 1. Coronary artery disease, status post four-vessel CABG 2. History of coronary artery disease with previous myocardial infarction and stent placement in 2000 and 2002 to the RCA 3. Ischemic cardiomyopathy with EF 40-45% 4. Hypertension 5. Hyperlipidemia 6. Diabetes mellitus with preoperative hemoglobin A1c 5.3% 7. Family history of premature coronary artery disease 8. Postoperative acute blood loss anemia Plan: 1. Continue aspirin, statin, Plavix, beta adrian therapy. Will increase metoprolol tartrate to 50 mg by mouth twice a day. Lisinopril 2.5 mg by mouth twice a day started yesterday by cardiology due to history of cardiomyopathy. 2. Encourage incentive spirometry use 10 times every hour while awake. 3. Increase activity, ambulate as tolerated. PT/OT/cardiac rehab following. 4. Will monitor daily labs and chest x-rays. Electrolyte replacement per protocol. No blood transfusion at this time. 5. Pain control with current medication regimen. Discontinue Perry. 6. Insulin management per primary care service 7. GI/DVT prophylaxis. 8. Bronchodilators per pulmonology management. 9. Discontinue left pleural chest tube and atrial and ventricular epicardial pacemaker wires. 10. Lasix 20 mg IV 1 now. 11. Bladder scan and straight cath for greater than [address] transfer orders to 3 S. cardiac stepdown unit. May transfer when bed available. 13. Anticipate discharge to home with home care in 24 to 48 hours. 14. More recommendations to follow based on patient's clinical course. Time with Patient: Greater than 30
[2019-06-22] MEDS: ISOSORBIDE MONONITRATE ER 30 MG TAB.ER.24H PO SCH (11:43)
[2019-06-22 11:46] LABS: Glucose,Whole Blood 110 mg/dL (75-99)
[2019-06-22 16:58] LABS: Glucose,Whole Blood 140 mg/dL (75-99)
[2019-06-22 20:12] LABS: Glucose,Whole Blood 156 mg/dL (75-99)
[2019-06-22] MEDS: METOPROLOL TARTRATE 50 MG TAB PO SCH (20:30)
[2019-06-22] MEDS: SENNOSIDES-DOCUSATE SODIUM 1 EACH TAB PO SCH (20:32)
--- NOTE | 2019-06-22 20:56 | P.PN ---
Progress Note - Text Progress Note Date: 06/22/19 - Chief Complaint Coronary bypass Consultation: This is a pleasant 68-year-old patient of Dr. Jalen alvarado. Chronic stable medical conditions include diabetes, hypertension, hyperlipidemia, psoriasis. Patient status post coronary bypass. Today-sitting up in a chair. Feeling better. Breathing is improved. Eating better. Did ambulate in sinus rhythm Review of systems: Was done for constitutional, cardiovascular, GI, pulmonary. relevant finding as above. Active Medications Acetaminophen (Tylenol Tab) 1,000 mg PO Q6HR PRN PRN Reason: Fever and/ or Pain Albuterol/Ipratropium (Duoneb 0.5 Mg-3 Mg/3 Ml Soln) 3 ml INHALATION RT-Q2H PRN PRN Reason: Shortness Of Breath Or Wheezing Albuterol/Ipratropium (Duoneb 0.5 Mg-3 Mg/3 Ml Soln) 3 ml INHALATION RT-QID [facility] Last Admin: 06/22/19 20:50 Dose: 3 ml Documented by: Aspirin (Aspirin) 325 mg PO DAILY [facility] Last Admin: 06/22/19 08:33 Dose: 325 mg Documented by: Atorvastatin Calcium (Lipitor) 40 mg PO DAILY [facility] Last Admin: 06/22/19 08:33 Dose: 40 mg Documented by: Benzocaine/Menthol (Cepacol Lozenge) 1 each MUCOUS MEM Q2H PRN PRN Reason: Sore Throat Bisacodyl (Dulcolax) 10 mg RECTAL DAILY PRN PRN Reason: Constipation Last Admin: 06/22/19 05:02 Dose: 10 mg Documented by: Cholecalciferol (Vitamin D3 (25 Mcg = 1000 Iu)) 4,000 unit PO DAILY [facility] Last Admin: 06/22/19 08:34 Dose: 4,000 unit Documented by: Clopidogrel Bisulfate (Plavix) 75 mg PO DAILY [facility] Last Admin: 06/22/19 08:34 Dose: 75 mg Documented by: Colchicine (Colcrys) 0.6 mg PO BID [facility] Last Admin: 06/22/19 20:30 Dose: 0.6 mg Documented by: Heparin Sodium (Porcine) (Heparin) 5,000 unit SQ Q8HR [facility] Last Admin: 06/22/19 16:09 Dose: 5,000 unit Documented by: Amiodarone HCl 150 mg/ (Dextrose/Water) 103 mls @ 618 mls/hr IV .Q10M PRN; Protocol PRN Reason: A.FIB/FLUTTER Amiodarone HCl 360 mg/ (Dextrose/Water) 200 mls @ 33.333 mls/hr IV .Q6H PRN; Protocol PRN Reason: A.FIB/FLUTTER Amiodarone HCl 300 mg/ (Dextrose/Water) 250 mls @ 25 mls/hr IV .Q10H PRN; Protocol PRN Reason: A.FIB/FLUTTER Insulin Aspart (Novolog) 0 unit SQ ACHS [facility]; Protocol Last Admin: 06/22/19 20:31 Dose: 2 unit Documented by: Isosorbide Mononitrate (Imdur) 30 mg PO DAILY@1200 [facility] Last Admin: 06/22/19 11:43 Dose: 30 mg Documented by: Ketorolac Tromethamine (Toradol) 15 mg IVP Q6HR [facility] Stop: 06/24/19 18:01 Last Admin: 06/22/19 19:07 Dose: 15 mg Documented by: Lisinopril (Zestril) 2.5 mg PO BID [facility] Last Admin: 06/22/19 20:30 Dose: 2.5 mg Documented by: Magnesium Hydroxide (Milk Of Magnesia) 2,400 mg PO BID PRN PRN Reason: Constipation Last Admin: 06/21/19 13:03 Dose: 2,400 mg Documented by: Metoclopramide HCl (Reglan) 10 mg IVP Q4H PRN PRN Reason: Nausea And Vomiting Last Admin: 06/21/19 17:18 Dose: 10 mg Documented by: Metoprolol Tartrate (Lopressor) 50 mg PO BID [facility] Last Admin: 06/22/19 20:30 Dose: 50 mg Documented by: Miscellaneous Information (Magnesium Per Protocol) 1 each MISCELLANE DAILY PRN; Protocol PRN Reason: Per Protocol Miscellaneous Information (Phosphorus Per Protocol) 1 each MISCELLANE DAILY PRN; Protocol PRN Reason: Per Protocol Miscellaneous Information (Potassium Per Protocol) 1 each MISCELLANE DAILY PRN; Protocol PRN Reason: Per Protocol Multivitamins (Theragran) 1 each PO DAILY [facility] Last Admin: 06/22/19 08:35 Dose: 1 each Documented by: Ondansetron HCl (Zofran) 4 mg IVP Q6HR PRN PRN Reason: Nausea And Vomiting Last Admin: 06/20/19 06:58 Dose: 4 mg Documented by: Pantoprazole Sodium (Protonix) 40 mg PO AC-BRKFST [facility] Last Admin: 06/22/19 06:44 Dose: 40 mg Documented by: Senna/Docusate Sodium (Senokot-S) 2 each PO HS [facility] Last Admin: 06/22/19 20:32 Dose: 2 each Documented by: Sodium Chloride (Saline Flush) 10 ml IV BID [facility] Last Admin: 06/22/19 20:32 Dose: 10 ml Documented by: Physical examination: VITAL SIGNS: 98, 92, 19, 153/72, 94% on room air GENERAL: Sitting on a chair, breathing improved EYES: Pupils equal. Conjunctiva pale. HEENT: External appearance of nose and ears normal, oral cavity grossly normal. NECK: JVD unable to assess; masses not palpable. HEART: First and second heart sounds are normal; no edema. LUNGS: Respiratory rate increased; decreased breath sounds. ABDOMEN: Soft, nontender, liver spleen not palpable, no masses palpable. PSYCH: Alert and oriented x3; mood and affect tired CHEST wall: Left pleural chest tube in place INVESTIGATIONS, reviewed in the clinical context: White count 7.5 hemoglobin 8.3 platelet 101 creatinine 0.89 Previous testing Lab work from June 11 showed a hemoglobin of 14.7 and a platelets of 213 Potassium 4.8 creatinine 0.78 Chest x-ray film-atelectasis Assessment: -Coronary bypass, currently with 2 mediastinal and one left pleural chest tube -Coronary artery disease -Diabetes mellitus type 2 on oral hypoglycemic -Hyperlipidemia -Essential hypertension -psoriases -Acute postprocedure blood loss anemia expected from surgery -Dilutional thrombocytopenia -Obesity BMI 30.7 Plan: Patient doing better. Continue current medication treatment plan. Patient is using the I-S. Mainly urine. Increasing activity. Thank you Dr. Wolff.
[2019-06-23] MEDS: KETOROLAC 30 MG/ML 1 ML VIAL IVP SCH ×2 (06:05→11:02)
[2019-06-23] MEDS: PANTOPRAZOLE 40 MG TABLET PO SCH (06:06)
[2019-06-23] MEDS: INSULIN ASPART (NovoLOG) 100 UNIT/ML VIAL SQ SCH ×4 (06:07→22:45)
[2019-06-23 06:08] LABS: Glucose,Whole Blood 126 mg/dL (75-99)
[2019-06-23 07:17] LABS: Calcium 8.4 mg/dL (8.4-10.2); Potassium 4.5 mmol/L (3.5-5.1)
[2019-06-23 08:10] LABS: Basophils % (A) 0 %; Eosinophils # (A) 0.3 k/uL (0-0.7); Eosinophils % (A) 4 %; HCT 25.2 % (39.0-53.0); HGB 8.3 gm/dL (13.0-17.5); Lymphocytes # (A) 0.9 k/uL (1.0-4.8); Lymphocytes % (A) 13 %; MCH 31.3 pg (25.0-35.0); MCV 94.7 fL (80.0-100.0); Mean Platelet Volume 8.8; Monocytes # (A) 0.5 k/uL (0-1.0); Monocytes % (A) 7 %; Neutrophils # (A) 5.3 k/uL (1.3-7.7); Neutrophils % (A) 74 %; Platelet Count 138 k/uL (150-450); RBC 2.66 m/uL (4.30-5.90); RDW 13.3 % (11.5-15.5); WBC 7.2 k/uL (3.8-10.6)
--- NOTE | 2019-06-23 08:56 | XR ---
EXAMINATION TYPE: XR chest 2V DATE OF EXAM: 06/23/2019 COMPARISON: 06/22/2019 HISTORY: 68-year-old male postoperative CABG TECHNIQUE: PA and lateral views FINDINGS: Median sternotomy wires are present. Heart borderline enlarged. There is strandy bibasilar atelectasi s. No other consolidation or significant pleural effusion. Improving aeration of the lung bases. IMPRESSION: Improving bibasilar aeration with some residual strandy atelectasis.
[2019-06-23] MEDS: IPRATROPIUM-ALBUTEROL 3 ML NEB INHALATION SCH ×4 (09:06→20:30)
[2019-06-23] MEDS: MULTIVITAMINS, THERA 1 EACH TAB PO SCH (09:26)
[2019-06-23] MEDS: COLCHICINE 0.6 MG EACH PO SCH ×2 (09:26→22:46)
[2019-06-23] MEDS: CHOLECALCIFEROL 1,000 UNIT TAB PO SCH (09:26)
[2019-06-23] MEDS: ATORVASTATIN 40 MG TAB PO SCH (09:26)
[2019-06-23] MEDS: LISINOPRIL 2.5 MG TAB PO SCH (09:27)
[2019-06-23] MEDS: CLOPIDOGREL 75 MG TAB PO SCH (09:27)
[2019-06-23] MEDS: METOPROLOL TARTRATE 50 MG TAB PO SCH ×2 (09:27→22:46)
[2019-06-23] MEDS: HEPARIN SODIUM,PORCINE 5,000 UNIT/ML 1 ML VIAL SQ SCH ×3 (09:27→22:45)
[2019-06-23] MEDS: ASPIRIN 325 MG TAB PO SCH (09:27)
[2019-06-23] MEDS ORDERED: FUROSEMIDE 10 MG/ML 2 ML VIAL IV ONE (10:04)
[2019-06-23] MEDS: ISOSORBIDE MONONITRATE ER 30 MG TAB.ER.24H PO SCH (11:03)
[2019-06-23 12:11] LABS: Glucose,Whole Blood 114 mg/dL (75-99)
--- NOTE | 2019-06-23 12:28 | P.PN ---
Subjective Progress Note Date: 06/23/19 Principal diagnosis: Coronary artery disease. Past medical history significant for coronary artery disease and previous myocardial infarction with stent placement in 2000 and 2002 to the RCA, ischemic cardiomyopathy with EF 40-45%, hypertension, hyperlipidemia, diabetes mellitus with preoperative hemoglobin A1c 5.3%, and family history of premature coronary artery disease. POD #4 coronary artery bypass grafting 4 vessels, left internal mammary artery to the left anterior descending coronary artery, a reverse greater saphenous vein graft to the diagonal coronary artery, a reverse greater saphenous vein graft to posterior descending coronary artery, a reverse greater saphenous vein graft to the obtuse marginal coronary artery, endoscopic harvesting of the right greater saphenous vein, epi-aortic ultrasound, intraoperative transesophageal echocardiogram, ligation of left atrial appendage using a 35 mm AtriCure clip. Postoperative acute blood loss anemia, expected outcome of surgery due to hemodilution and cardiopulmonary bypass pump. The patient is sitting up to bedside chair on the cardiac stepdown unit. He is in no acute distress. Denies any complaints of pain or shortness of breath at this time. Oxygen saturations are 98% on room air and he is achieving 3718-5365 mL on his incentive spirometry. He reports he was ambulating in the intensive care unit hallway yesterday 3-4 times with minimal assistance from nursing staff. His Levy catheter was discontinued yesterday and he has been urinating without difficulty. Laboratory results this morning show a BUN of 35 and creatinine of 1.01 and due to the elevation in BUN the Toradol was discontinued. Objective - Vital Signs Vital signs: Vital Signs Temp 97.7 F 06/23/19 11:00 Pulse 98 06/23/19 11:00 Resp 18 06/23/19 11:00 BP 121/65 06/23/19 11:00 Pulse Ox 99 06/23/19 11:00 Intake & Output 06/22/19 06/23/19 06/23/19 17:59 06:59 18:59 Intake Total 290 Output Total Balance 290 Weight Intake: IV 30 Invasive Line 2 10 Invasive Line 5 20 Oral 260 Output: Chest Tube Drainage Left Pleural Urine Other: Voiding Method Urinal # Voids # Bowel Movements ABP, PAP, CO, CI - Last Documented Arterial Blood Pressure 99/44 Pulmonary Artery Pressure 16/7 Cardiac Output 5.7 Cardiac Index 2.6 - Constitutional General appearance: Present: cooperative, no acute distress, obese - Respiratory Details: Lung sounds with few scattered crackles to his bilateral bases. Essentially clear to his upper lobes. Respirations are symmetrical and nonlabored. Oxygen saturation are 98% on room air and he is achieving 2310-7625 mL on his incentive spirometry. - Cardiovascular Details: Regular rhythm and rate. S1 and S2 present, negative for S3, gallop or murmur. Sternum is stable. Remote telemetry showing normal sinus rhythm with global ST elevation heart rate 94. Heart hugger is in place and he is demonstrating appropriate use. Knee-high LAMBERTO hose and sequential compression devices in place to his bilateral lower extremities. Trace pedal edema. - Gastrointestinal Gastrointestinal Comment(s): Abdomen is soft, nontender and nondistended. Active bowel sounds present in all 4 abdominal quadrants. No guarding or rigidity. Tolerating oral intake. - Genitourinary Genitourinary Comment(s): Voiding clear yellow urine. - Integumentary Integumentary Comment(s): Skin is warm and dry. No clubbing or cyanosis is present. Midline sternal incision is clean, dry and approximated. No drainage or redness is present. Right lower extremity EVH site clean, dry and approximated. No drainage or redness is present. - Neurologic Neurologic: Present: CNII-XII intact - Musculoskeletal Musculoskeletal: Present: gait normal, generalized weakness, strength equal bilaterally - Psychiatric Psychiatric: Present: A&O x's 3, appropriate affect, intact judgment & insight - Allied health notes Allied health notes reviewed: nursing - Labs CBC & Chem 7: 06/23/19 05:56 06/23/19 05:56 Labs: Abnormal Lab Results - Last 24 Hours (Table) 06/22/19 06/22/19 06/22/19 Range/Units 11:44 16:57 20:10 RBC (4.30-5.90) m/uL Hgb (13.0-17.5) gm/dL Hct (39.0-53.0) % Plt Count (150-450) k/uL Lymphocytes # (1.0-4.8) k/uL Sodium (137-145) mmol/L Chloride (98-107) mmol/L BUN (9-20) mg/dL Glucose (74-99) mg/dL POC Glucose (mg/dL) 110 H 140 H 156 H (75-99) mg/dL 06/23/19 06/23/19 06/23/19 Range/Units 05:56 05:56 06:06 RBC 2.66 L (4.30-5.90) m/uL Hgb 8.3 L (13.0-17.5) gm/dL Hct 25.2 L (39.0-53.0) % Plt Count 138 L (150-450) k/uL Lymphocytes # 0.9 L (1.0-4.8) k/uL Sodium 131 L (137-145) mmol/L Chloride 97 L (98-107) mmol/L BUN 35 H (9-20) mg/dL Glucose 114 H (74-99) mg/dL POC Glucose (mg/dL) 126 H (75-99) mg/dL 06/23/19 Range/Units 12:07 RBC (4.30-5.90) m/uL Hgb (13.0-17.5) gm/dL Hct (39.0-53.0) % Plt Count (150-450) k/uL Lymphocytes # (1.0-4.8) k/uL Sodium (137-145) mmol/L Chloride (98-107) mmol/L BUN (9-20) mg/dL Glucose (74-99) mg/dL POC Glucose (mg/dL) 114 H (75-99) mg/dL - Imaging and Cardiology Chest x-ray: report reviewed, image reviewed Assessment and Plan Assessment: 1. Coronary artery disease, status post four-vessel CABG 2. History of coronary artery disease with previous myocardial infarction and stent placement in 2000 and 2002 to the RCA 3. Ischemic cardiomyopathy with EF 40-45% 4. Hypertension 5. Hyperlipidemia 6. Diabetes mellitus with preoperative hemoglobin A1c 5.3% 7. Family history of premature coronary artery disease 8. Postoperative acute blood loss anemia Plan: 1. Continue aspirin, statin, Plavix, beta adrian therapy. Will increase metoprolol tartrate as tolerated. Lisinopril 2.5 mg by mouth twice a day started on 06/21/2019 by cardiology due to history of cardiomyopathy. 2. Encourage incentive spirometry use 10 times every hour while awake. 3. Increase activity, ambulate as tolerated. PT/OT/cardiac rehab following. 4. Will monitor daily labs and chest x-rays. Electrolyte replacement per protocol. No blood transfusion at this time. 5. Pain control with current medication regimen. Discontinue Toradol due to his elevation in BUN. 6. Insulin management per primary care service 7. GI/DVT prophylaxis. 8. Bronchodilators per pulmonology management. 9. Lasix 20 mg IV 1 now 10. First postoperative shower today.. 11. Anticipate discharge to home with home care in 24 hours. 12. More recommendations to follow based on patient's clinical course. Time with Patient: Greater than 30
--- NOTE | 2019-06-23 13:54 | PN ---
PROGRESS NOTE Mr. Low is a 68-year-old male with a known history of coronary artery disease who presented with worsening coronary artery disease with progressive angina and cardiomyopathy who underwent coronary artery bypass grafting. He is doing well this morning. Ambulating without difficulty, feeling stronger. Denying any chest pain. No dizziness or palpitations. No nausea. He continues to be at this time on aspirin once a day, Lipitor 40 mg daily, Plavix 75 mg daily, isosorbide mononitrate 30 mg daily, metoprolol tartrate 50 mg twice a day. PHYSICAL EXAMINATION: Blood pressure 121/60 with a heart rate of 90. LUNGS: Clear. HEART: Regular rate and rhythm. S1, S2. No S3. No rub. ABDOMEN: Soft, nontender. EXTREMITIES: With trace edema. LABORATORY DATA: Lab data revealed BUN and creatinine 35 and 1.01, potassium 4.5. Hemoglobin of 8.3. IMPRESSION: 1. Status post coronary artery bypass graft grafting. 2. ST-segment changes postoperatively with no associated chest pain. 3. Cardiomyopathy preoperatively. 4. Hyperlipidemia. RECOMMENDATIONS: We will continue present therapy. We will increase the dose of lisinopril. Increase his level of activity. If he remains stable, I would expect he should be able to be discharged home tomorrow. MMODL / IJN: [id number] /
--- NOTE | 2019-06-23 15:39 | P.PN ---
Subjective Progress Note Date: 06/23/19 68-year-old white male patient of Dr. Prieto, with past medical history of hypertension, dyslipidemia, coronary artery disease with previous stent placement to the RCA in 2000 and in 2002, [id number] diabetes mellitus type 2, family history of coronary artery disease, psoriasis, who was having symptoms of shortness of breath with exertion especially in the cold weather. No complaints of chest pain, no orthopnea, syncope or palpitations. Patient had outpatient evaluation with a 2-D echocardiogram at Dr. Mari's office on O2 through 2019 which showed ejection fraction of 45%, mild mitral valve regurgitation, mild aortic valve regurgitation and mild tricuspid valve regurgitation. Lexiscan Cardiolite stress test showed abnormal myocardial perfusion, with evidence of prior myocardial infarction involving the apex, inferior wall and inferior septal wall. Cardiac catheterization was completed on 2019, which demonstrated 30-40% stenosis to his proximal LAD, 99% stenosis to his mid LAD, and 90% stenosis to his circumflex coronary artery and 80% stenosis to his proximal segment of the RCA with a total stent occlusion in the mid segment of the distal RCA. Left ventriculogram showed EF of 40%. Patient is a lifetime nonsmoker, his preop spirometry showed FEV1 of 3.05 L or 85% of predicted, an FVC of 3.57 or 74% of predicted, showing mild restriction. Surgical revascularization was recommended and on 06/19/2019 patient underwent four-vessel bypass grafting by Dr. Wolff with BLACKBURN to LAD, SVG to the diagonal, SVG to the PDA, and SVG to the OM, exclusion of the left atrial appendage. Today is postoperative day 1, patient was extubated before 4 hours of the OR exit time. Intraoperatively patient received 650 mL of Cell Saver, 2500 mL and crystalloids, no blood products, and 750 mL and 5% albumin. This morning he seen in the intensive care unit, he is he is a bit somnolent, but arousable, answering questions appropriately, he states a little fatigued, but no acute distress, noncompressive shortness of breath, his pain is under good control. He is on 2 L of oxygen with a pulse ox of 95%, hemodynamically stable, lactated Ringer's infusing at a rate of 50 ML per hour, nitroglycerin is at 10 mics per kilo per minute, insulin drip is at 1.5 units per hour. In sinus mechanism with a controlled rate, cardiac output is 5.7, cardiac index is 2.6, CVP is 6, PA pressures of 23/11. Left pleural chest tube is in place with a total of 70 mL of serosanguineous output since his surgery, 2 mediastinal chest tubes with a total of 500 mL of serosanguineous output, no air leak noted. On 06/21/2019 patient seen in follow-up in the intensive care unit, patient is more awake on today's exam, is calm and comfortable, room air pulse ox is 93%, he is answering questions appropriately, oriented 3, afebrile, hemodynamically stable, maintenance IV fluids have been discontinued, IVs have been hep-locked. PA catheter was discontinued, only catheter was discontinued this morning. AV wires are grounded, patient in sinus mechanism with a rate of 98, hemodynamically stable, no vasoactive infusions. Today's labs have been reviewed showing white blood cell count of 7.9, hemoglobin of 8.4, platelet count of 85, INR 1.2, sodium is 135, the rest of electrolytes and renal profile were within normal limits. Today's chest x-ray has been reviewed showing very trace pleural effusions and bibasilar linear airspace disease likely atelectasis. No residual pneumothorax. 2 mediastinal chest tube output was 180 mL overnight of serosanguineous thin output, left pleural chest tube put out 310 mL of seros On 06/22/2019, the patient is being seen for a follow-up. Ultrasound the chest is in the minimum and the plan is to remove the chest tube today. He is hemodynamically stable. No respiratory difficulties and the pulse ox is 94% on room air. On his cardiac rhythm, there is still some ST segment elevations which was think it may be related to an underlying pericarditis and the patient is currently on colchicine. No nausea. No vomiting. No abdominal pain. Using incentive spirometer and is pulling approximately 1200 mL of air. No other significant events overnight. No altered mentation. This is postop day #3 Patient seen today 06/23/2019 in follow-up. Postoperative day #4. He is awake and alert in no acute distress. Out on the selective care unit. Up in a chair at the bedside. Maintaining O2 saturations in the 90s on room air. Currently i n normal sinus rhythm. Working well with the incentive spirometer. No worsening shortness of breath, cough or congestion. He does have an occasional productive cough. Chest x-ray reveals improving by basilar aeration with some residual strandy atelectasis Objective - Vital Signs Vital signs: Vital Signs Temp 97.7 F 06/23/19 11:00 Pulse 82 06/23/19 13:08 Resp 18 06/23/19 11:00 BP 121/65 06/23/19 11:00 Pulse Ox 99 06/23/19 11:00 Intake & Output 06/22/19 06/23/19 06/23/19 17:59 06:59 18:59 Intake Total 290 Output Total Balance 290 Weight Intake: IV 30 Invasive Line 2 10 Invasive Line 5 20 Oral 260 Output: Chest Tube Drainage Left Pleural Urine Other: Voiding Method Urinal # Voids # Bowel Movements ABP, PAP, CO, CI - Last Documented Arterial Blood Pressure 99/44 Pulmonary Artery Pressure 16/7 Cardiac Output 5.7 Cardiac Index 2.6 - Exam GENERAL EXAM: Alert, active, very pleasant 68-year-old gentleman, on room air, comfortable in no apparent distress. HEAD: Normocephalic. EYES: Normal reaction of pupils, equal size. NOSE: Clear with pink turbinates. THROAT: No erythema or exudates. NECK: No masses, no JVD. CHEST: Sternal dressing dry and intact. Heart Hugger in place LUNGS: Equal air entry with basilar crackles. CVS: S1 and S2 normal with no audible murmur, regular rhythm. ABDOMEN: No hepatosplenomegaly, normal bowel sounds, no guarding or rigidity. SPINE: No scoliosis or deformity SKIN: No rashes CENTRAL NERVOUS SYSTEM: No focal deficits, tone is normal in all 4 extremities. EXTREMITIES: There is no peripheral edema. No clubbing, no cyanosis. Peripheral pulses are intact. SCDs in place. - Labs CBC & Chem 7: 06/23/19 05:56 06/23/19 05:56 Labs: Abnormal Lab Results - Last 24 Hours (Table) 06/22/19 06/22/19 06/23/19 Range/Units 16:57 20:10 05:56 RBC 2.66 L (4.30-5.90) m/uL Hgb 8.3 L (13.0-17.5) gm/dL Hct 25.2 L (39.0-53.0) % Plt Count 138 L (150-450) k/uL Lymphocytes # 0.9 L (1.0-4.8) k/uL Sodium (137-145) mmol/L Chloride (98-107) mmol/L BUN (9-20) mg/dL Glucose (74-99) mg/dL POC Glucose (mg/dL) 140 H 156 H (75-99) mg/dL 06/23/19 06/23/19 06/23/19 Range/Units 05:56 06:06 12:07 RBC (4.30-5.90) m/uL Hgb (13.0-17.5) gm/dL Hct (39.0-53.0) % Plt Count (150-450) k/uL Lymphocytes # (1.0-4.8) k/uL Sodium 131 L (137-145) mmol/L Chloride 97 L (98-107) mmol/L BUN 35 H (9-20) mg/dL Glucose 114 H (74-99) mg/dL POC Glucose (mg/dL) 126 H 114 H (75-99) mg/dL Assessment and Plan Assessment: #1. Multivessel coronary artery disease, status post four-vessel bypass grafting, with BLACKBURN to LAD, SVG to the diagonal, SVG to the PDA, SVG to the OM, and left atrial appendage exclusion, postoperative day 4 #2. Post thoracotomy and the chest tubes are all removed and the patient is currently on room air. #3. Postoperative blood loss anemia, normal outcome of bypass grafting surgery, has not required transfusion, the hemoglobin is stable for now and is running at 8.3. #4. History of coronary artery disease with previous stent placement to the RCA in 2000 in 2002 #5. Diabetes mellitus type 2, on sliding scale coverage #6. Hypertension #7. Dyslipidemia on Lipitor Plan The patient was seen and evaluated by Dr. Null. He is stable from the pulmonary and critical care standpoint. No pulmonary complaints. On room air. Working well with the incentive spirometer. Increase his activity as tolerated. Probable discharge in the a.m. We'll continue to follow. I, the cosigning physician, performed a history & physical examination of the patient. Lungs sounds with faint crackles in the posterior bases. Maintaining good O2 saturations in the 90s on room air. I discussed the assessment and plan of care with my nurse practitioner, Dorina Malloy. I attest to the above note as dictated by her.
[2019-06-23 16:49] LABS: Glucose,Whole Blood 116 mg/dL (75-99)
--- NOTE | 2019-06-23 20:23 | P.PN ---
Progress Note - Text Progress Note Date: 06/23/19 - Chief Complaint Coronary bypass Consultation: This is a pleasant 68-year-old patient of Dr. Jalen alvarado. Chronic stable medical conditions include diabetes, hypertension, hyperlipidemia, psoriasis. Patient status post coronary bypass. Today-moved out of the ICU. Feeling much better. Did have a bowel movement. Oral intake improved. Did ambulate. Breathing much improved. Review of systems: Was done for constitutional, cardiovascular, GI, pulmonary. relevant finding as above. Active Medications Acetaminophen (Tylenol Tab) 1,000 mg PO Q6HR PRN PRN Reason: Fever and/ or Pain Last Admin: 06/23/19 00:24 Dose: 1,000 mg Documented by: Albuterol/Ipratropium (Duoneb 0.5 Mg-3 Mg/3 Ml Soln) 3 ml INHALATION RT-Q2H PRN PRN Reason: Shortness Of Breath Or Wheezing Albuterol/Ipratropium (Duoneb 0.5 Mg-3 Mg/3 Ml Soln) 3 ml INHALATION RT-QID [facility] Last Admin: 06/23/19 15:45 Dose: 3 ml Documented by: Aspirin (Aspirin) 325 mg PO DAILY [facility] Last Admin: 06/23/19 09:27 Dose: 325 mg Documented by: Atorvastatin Calcium (Lipitor) 40 mg PO DAILY [facility] Last Admin: 06/23/19 09:26 Dose: 40 mg Documented by: Benzocaine/Menthol (Cepacol Lozenge) 1 each MUCOUS MEM Q2H PRN PRN Reason: Sore Throat Last Admin: 06/22/19 23:23 Dose: 1 each Documented by: Bisacodyl (Dulcolax) 10 mg RECTAL DAILY PRN PRN Reason: Constipation Last Admin: 06/22/19 05:02 Dose: 10 mg Documented by: Cholecalciferol (Vitamin D3 (25 Mcg = 1000 Iu)) 4,000 unit PO DAILY [facility] Last Admin: 06/23/19 09:26 Dose: 4,000 unit Documented by: Clopidogrel Bisulfate (Plavix) 75 mg PO DAILY [facility] Last Admin: 06/23/19 09:27 Dose: 75 mg Documented by: Colchicine (Colcrys) 0.6 mg PO BID [facility] Last Admin: 06/23/19 09:26 Dose: 0.6 mg Documented by: Heparin Sodium (Porcine) (Heparin) 5,000 unit SQ Q8HR [facility] Last Admin: 06/23/19 16:48 Dose: 5,000 unit Documented by: Amiodarone HCl 150 mg/ (Dextrose/Water) 103 mls @ 618 mls/hr IV .Q10M PRN; Protocol PRN Reason: A.FIB/FLUTTER Amiodarone HCl 360 mg/ (Dextrose/Water) 200 mls @ 33.333 mls/hr IV .Q6H PRN; Protocol PRN Reason: A.FIB/FLUTTER Amiodarone HCl 300 mg/ (Dextrose/Water) 250 mls @ 25 mls/hr IV .Q10H PRN; Protocol PRN Reason: A.FIB/FLUTTER Insulin Aspart (Novolog) 0 unit SQ ACHS [facility]; Protocol Last Admin: 06/23/19 16:49 Dose: Not Given Documented by: Isosorbide Mononitrate (Imdur) 30 mg PO DAILY@1200 JOANNE Last Admin: 06/23/19 11:03 Dose: 30 mg Documented by: Lisinopril (Zestril) 5 mg PO BID [facility] Magnesium Hydroxide (Milk Of Magnesia) 2,400 mg PO BID PRN PRN Reason: Constipation Last Admin: 06/21/19 13:03 Dose: 2,400 mg Documented by: Metoclopramide HCl (Reglan) 10 mg IVP Q4H PRN PRN Reason: Nausea And Vomiting Last Admin: 06/21/19 17:18 Dose: 10 mg Documented by: Metoprolol Tartrate (Lopressor) 50 mg PO BID [facility] Last Admin: 06/23/19 09:27 Dose: 50 mg Documented by: Miscellaneous Information (Magnesium Per Protocol) 1 each MISCELLANE DAILY PRN; Protocol PRN Reason: Per Protocol Miscellaneous Information (Phosphorus Per Protocol) 1 each MISCELLANE DAILY PRN; Protocol PRN Reason: Per Protocol Miscellaneous Information (Potassium Per Protocol) 1 each MISCELLANE DAILY PRN; Protocol PRN Reason: Per Protocol Multivitamins (Theragran) 1 each PO DAILY [facility] Last Admin: 06/23/19 09:26 Dose: 1 each Documented by: Ondansetron HCl (Zofran) 4 mg IVP Q6HR PRN PRN Reason: Nausea And Vomiting Last Admin: 06/20/19 06:58 Dose: 4 mg Documented by: Pantoprazole Sodium (Protonix) 40 mg PO AC-BRKFST [facility] Last Admin: 06/23/19 06:06 Dose: 40 mg Documented by: Senna/Docusate Sodium (Senokot-S) 2 each PO HS [facility] Last Admin: 06/22/19 20:32 Dose: 2 each Documented by: Sodium Chloride (Saline Flush) 10 ml IV BID [facility] Last Admin: 06/23/19 09:27 Dose: 10 ml Documented by: Physical examination: VITAL SIGNS: 97.7, 98, 18, 121/65, 99% on room air GENERAL: Sitting on a chair, much improved EYES: Pupils equal. Conjunctiva pale. HEENT: External appearance of nose and ears normal, oral cavity grossly normal. NECK: JVD unable to assess; masses not palpable. HEART: First and second heart sounds are normal; no edema. LUNGS: Respiratory rate increased; decreased breath sounds. ABDOMEN: Soft, nontender, liver spleen not palpable, no masses palpable. PSYCH: Alert and oriented x3; mood and affect tired INVESTIGATIONS, reviewed in the clinical context: White count 7.2 hemoglobin 8.3 platelets 138 potassium 4.5 creatinine 1.01 Previous testing Lab work from June 11 showed a hemoglobin of 14.7 and a platelets of 213 Potassium 4.8 creatinine 0.78 Chest x-ray film-atelectasis Assessment: -Coronary bypass, currently with 2 mediastinal and one left pleural chest tube- old tubes toe removed -Coronary artery disease -Diabetes mellitus type 2 on oral hypoglycemic -Hyperlipidemia -Essential hypertension -psoriases -Acute postprocedure blood loss anemia expected from surgery -Dilutional thrombocytopenia -Obesity BMI 30.7 Plan: Patient doing much better. Improved. Up and about. Oral intake improved. Continue current medication treatment plan. Thank you Dr. Wolff.
[2019-06-23 20:37] LABS: Glucose,Whole Blood 157 mg/dL (75-99)
[2019-06-23] MEDS: SENNOSIDES-DOCUSATE SODIUM 1 EACH TAB PO SCH (22:45)
[2019-06-23] MEDS: LISINOPRIL 5 MG TAB PO SCH (22:46)
[2019-06-24 06:14] LABS: Glucose,Whole Blood 139 mg/dL (75-99)
[2019-06-24] MEDS: INSULIN ASPART (NovoLOG) 100 UNIT/ML VIAL SQ SCH ×2 (06:30→12:46)
[2019-06-24] MEDS: PANTOPRAZOLE 40 MG TABLET PO SCH (06:30)
[2019-06-24 06:47] LABS: HGB 8.6 gm/dL (13.0-17.5); MCHC 33.2 g/dL (31.0-37.0); MCV 93.6 fL (80.0-100.0); Mean Platelet Volume 8.2; Platelet Count 174 k/uL (150-450); RBC 2.78 m/uL (4.30-5.90); RDW 13.3 % (11.5-15.5); WBC 5.8 k/uL (3.8-10.6)
[2019-06-24 06:50] LABS: African American GFR (CKD) >90 (>60 ml/min/1.73 sqM); Anion Gap 9 mmol/L; Blood Urea Nitrogen 27 mg/dL (9-20); Calcium 8.7 mg/dL (8.4-10.2); Carbon Dioxide 24 mmol/L (22-30); Chloride 100 mmol/L (98-107); Glucose 118 mg/dL (74-99); Non-African American GFR(CKD) >90 (>60 ml/min/1.73 sqM); Potassium 4.4 mmol/L (3.5-5.1); Sodium 133 mmol/L (137-145)
--- NOTE | 2019-06-24 07:13 | XR ---
EXAMINATION TYPE: XR chest 2V DATE OF EXAM: 06/24/2019 COMPARISON: 06/23/2019 HISTORY: Post CABG TECHNIQUE: Frontal and lateral views of the chest are obtained. FINDINGS: Trace right pleural effusion remains with minimal right basilar atelectasis. Platelike lef t upper lung atelectasis is also seen. Surgical clips along the mediastinal border with median sterno merritt wires and enlarged mediastinal silhouette as seen on the prior. No acute osseous pathology. IMPRESSION: Trace right pleural effusion and right basilar atelectasis similar to the prior.
[2019-06-24] MEDS: IPRATROPIUM-ALBUTEROL 3 ML NEB INHALATION SCH ×2 (09:04→11:59)
[2019-06-24] MEDS ORDERED: FUROSEMIDE 10 MG/ML 2 ML VIAL IV ONE (09:04)
[2019-06-24] MEDS: LISINOPRIL 5 MG TAB PO SCH (09:43)
[2019-06-24] MEDS: HEPARIN SODIUM,PORCINE 5,000 UNIT/ML 1 ML VIAL SQ SCH (09:43)
[2019-06-24] MEDS: CHOLECALCIFEROL 1,000 UNIT TAB PO SCH (09:43)
[2019-06-24] MEDS: ATORVASTATIN 40 MG TAB PO SCH (09:43)
[2019-06-24] MEDS: COLCHICINE 0.6 MG EACH PO SCH (09:43)
[2019-06-24] MEDS: MULTIVITAMINS, THERA 1 EACH TAB PO SCH (09:43)
[2019-06-24] MEDS: METOPROLOL TARTRATE 50 MG TAB PO SCH (09:43)
[2019-06-24] MEDS: ASPIRIN 325 MG TAB PO SCH (09:43)
[2019-06-24] MEDS: CLOPIDOGREL 75 MG TAB PO SCH (09:43)
[2019-06-24 10:53] VITALS: BP 131/59; PULSE 92; RESP 20; TEMP 98.6
--- NOTE | 2019-06-24 11:09 | P.PN ---
Subjective Progress Note Date: 06/24/19 Principal diagnosis: Coronary artery disease. Previous medical history of coronary artery disease and previous myocardial infarction with stent placement in 2000 and 2002 to the RCA, ischemic cardiomyopathy with EF 40-45%, hypertension, hyperlipidemia, diabetes mellitus with preoperative hemoglobin A1c 5.3%, and family history of premature coronary artery disease. POD #5 coronary artery bypass grafting 4 vessels, left internal mammary artery to the left anterior descending artery, reverse saphenous vein graft to the diagonal artery, reverse saphenous vein graft to posterior descending artery, reverse saphenous vein graft to the obtuse marginal artery, endoscopic harves ting of the right greater saphenous vein, epi-aortic ultrasound, intraoperative transesophageal echocardiogram, ligation of left atrial appendage using a 35 mm AtriCure clip Postoperative acute blood loss anemia, expected outcome of surgery due to hemodilution and cardiopulmonary bypass pump The patient is currently sitting up in a recliner on the cardiac stepdown unit in no acute distress. Denies pain, shortness of breath. Currently in normal sinus rhythm, remains hemodynamically stable. He has ambulated in the hallway yesterday without difficulty. Feels ready to go home today. No new concerns Objective - Vital Signs Vital signs: Vital Signs Temp 99.0 F 06/24/19 04:00 Pulse 80 06/24/19 09:15 Resp 18 06/24/19 04:00 BP 117/65 06/24/19 04:00 Pulse Ox 96 06/24/19 09:06 Intake & Output 06/23/19 06/24/19 06/24/19 18:59 06:59 18:59 Intake Total 510 60 Output Total 850 Balance -340 60 Weight 100.6 kg 100.6 kg Intake: IV 50 60 Invasive Line 2 10 Invasive Line 5 40 60 Oral 460 Output: Urine 850 Other: Voiding Method Urinal Urinal # Voids 1 ABP, PAP, CO, CI - Last Documented Arterial Blood Pressure 99/44 Pulmonary Artery Pressure 16/7 Cardiac Output 5.7 Cardiac Index 2.6 - Constitutional General appearance: Present: cooperative, no acute distress - Respiratory Details: Lungs sounds diminished bilaterally. Respirations even, nonlabored. Currently on room air with oxygen saturation 96%. Able to achieve 1750 mL on his incentive spirometry. Strong cough. - Cardiovascular Details: S1, S2 present. Regular rate and rhythm, sinus rhythm on telemetry. Sternum stable. Palpable peripheral pulses bilaterally. No edema present. No calf pain or tenderness noted. Heart hugger in place with patient demonstrating appropriate use. Antiembolism stockings, SCDs present. - Gastrointestinal Gastrointestinal Comment(s): Abdomen soft, nontender, nondistended. Active bowel sounds present 4 quadrants. Tolerating diet. Positive bowel movement - Genitourinary Genitourinary Comment(s): Continues to void clear, yellow urine - Integumentary Integumentary Comment(s): Skin is warm dry with evidence of good perfusion. Anterior chest incision well approximated covered with dry intact dressing. Right lower extremity EVH site well approximated - Neurologic Neurologic: Present: CNII-XII intact - Musculoskeletal Musculoskeletal: Present: gait normal, strength equal bilaterally - Psychiatric Psychiatric: Present: A&O x's 3, appropriate affect, intact judgment & insight - Allied health notes Allied health notes reviewed: nursing - Labs CBC & Chem 7: 06/24/19 05:47 06/24/19 05:47 Labs: Abnormal Lab Results - Last 24 Hours (Table) 06/23/19 06/23/19 06/23/19 Range/Units 12:07 16:48 20:35 RBC (4.30-5.90) m/uL Hgb (13.0-17.5) gm/dL Hct (39.0-53.0) % Sodium (137-145) mmol/L BUN (9-20) mg/dL Glucose (74-99) mg/dL POC Glucose (mg/dL) 114 H 116 H 157 H (75-99) mg/dL 06/24/19 06/24/19 06/24/19 Range/Units 05:47 05:47 06:12 RBC 2.78 L (4.30-5.90) m/uL Hgb 8.6 L (13.0-17.5) gm/dL Hct 26.0 L (39.0-53.0) % Sodium 133 L (137-145) mmol/L BUN 27 H (9-20) mg/dL Glucose 118 H (74-99) mg/dL POC Glucose (mg/dL) 139 H (75-99) mg/dL - Imaging and Cardiology Chest x-ray: report reviewed, image reviewed Assessment and Plan Assessment: 1. Coronary artery disease, status post four-vessel CABG 2. History of coronary artery disease with previous myocardial infarction and stent placement in 2000 and 2002 to the RCA 3. Ischemic cardiomyopathy with EF 40-45% 4. Hypertension 5. Hyperlipidemia 6. Diabetes mellitus with preoperative hemoglobin A1c 5.3% 7. Family history of premature coronary artery disease 8. Postoperative acute blood loss anemia Plan: 1. Continue aspirin, statin, Plavix, beta adrian therapy, Imdur. ROBY inhibitor initiated, continue 2. Encourage incentive spirometry use 10 times every hour while awake 3. Increase activity, ambulate as tolerated. PT/OT/cardiac rehab following 4. Pain control with current medication regimen 6. GI/DVT prophylaxis 7. Bronchodilators per pulmonology 8. Anticipate discharge to home with home care today. Follow-up appointments made. Verbal discharge instructions given. Contact information for cardiothoracic surgery given. 9. More recommendations to follow Time with Patient: Greater than 30
--- NOTE | 2019-06-24 11:42 | P.PN ---
Subjective Progress Note Date: 06/24/19 This is a 68-year-old white male patient of Dr. Prieto, with past medical history of hypertension, dyslipidemia, coronary artery disease with previous stent placement to the RCA in 2000 and in 2002, [id number] diabetes mellitus type 2, family history of coronary artery disease, psoriasis, status post cardiac catheterization on June 11 which demonstrated 30-40% stenosis of the proximal LAD, 99% stenosis to the mid LAD and 99% stenosis of the circumflex, 80% stenosis to the proximal RCA with a total stent occlusion in the mid segment of the distal RCA. Ejection fraction revealed was 40%. Patient underwent four-vessel bypass surgery with a BLACKBURN to the LAD,, saphenous vein graft to diagonal, saphenous vein graft to the PDA, and saphenous vein graft to the OM, exclusion of left atrial appendage. Patient was seen and examined this morning which is postoperative day 5 he's been up ambulating in the hallway without any difficulty, hemodynamically he is stable. His blood pressure is 118/60 with a heart rate in the 80s today and patient overall is feeling quite well. Objective - Vital Signs Vital signs: Vital Signs Temp 98.6 F 06/24/19 08:00 Pulse 80 06/24/19 09:15 Resp 20 06/24/19 08:00 BP 131/59 06/24/19 08:00 Pulse Ox 96 06/24/19 09:06 Intake & Output 06/23/19 06/24/19 06/24/19 18:59 06:59 18:59 Intake Total 510 60 20 Output Total 850 Balance -340 60 20 Weight 100.6 kg 100.6 kg Intake: IV 50 60 20 Invasive Line 2 10 Invasive Line 5 40 60 20 Oral 460 Output: Urine 850 Other: Voiding Method Urinal Urinal # Voids 1 ABP, PAP, CO, CI - Last Documented Arterial Blood Pressure 99/44 Pulmonary Artery Pressure 16/7 Cardiac Output 5.7 Cardiac Index 2.6 - Exam GENERAL EXAM: Alert, active, very pleasant 68-year-old gentleman, on room air, comfortable in no apparent distress. HEAD: Normocephalic. EYES: Normal reaction of pupils, equal size. NOSE: Clear with pink turbinates. THROAT: No erythema or exudates. NECK: No masses, no JVD. CHEST: Sternal dressing dry and intact. Heart Hugger in place LUNGS: Equal air entry with basilar crackles. CVS: S1 and S2 normal with no audible murmur, regular rhythm. ABDOMEN: No hepatosplenomegaly, normal bowel sounds, no guarding or rigidity. SPINE: No scoliosis or deformity SKIN: No rashes CENTRAL NERVOUS SYSTEM: No focal deficits, tone is normal in all 4 extremities. EXTREMITIES: There is no peripheral edema. No clubbing, no cyanosis. Peripheral pulses are intact. SCDs in place. - Labs CBC & Chem 7: 06/24/19 05:47 06/24/19 05:47 Labs: Abnormal Lab Results - Last 24 Hours (Table) 06/23/19 06/23/19 06/23/19 Range/Units 12:07 16:48 20:35 RBC (4.30-5.90) m/uL Hgb (13.0-17.5) gm/dL Hct (39.0-53.0) % Sodium (137-145) mmol/L BUN (9-20) mg/dL Glucose (74-99) mg/dL POC Glucose (mg/dL) 114 H 116 H 157 H (75-99) mg/dL 06/24/19 06/24/19 06/24/19 Range/Units 05:47 05:47 06:12 RBC 2.78 L (4.30-5.90) m/uL Hgb 8.6 L (13.0-17.5) gm/dL Hct 26.0 L (39.0-53.0) % Sodium 133 L (137-145) mmol/L BUN 27 H (9-20) mg/dL Glucose 118 H (74-99) mg/dL POC Glucose (mg/dL) 139 H (75-99) mg/dL Assessment and Plan Plan: Assessment and plan: #1. Multivessel coronary artery disease, status post four-vessel bypass grafting, with BLACKBURN to LAD, SVG to the diagonal, SVG to the PDA, SVG to the OM, and left atrial appendage exclusion, postoperative day 5 #2. Post thoracotomy and the chest tubes are all removed and the patient is currently on room air. #3. Postoperative blood loss anemia, normal outcome of bypass grafting surgery, has not required transfusion, the hemoglobin is stable for now and is running at 8.6. #4. History of coronary artery disease with previous stent placement to the RCA in 2000 in 2002 #5. Diabetes mellitus type 2, on sliding scale coverage #6. Hypertension #7. Dyslipidemia Plan From cardiology's perspective, we will continue with current medications. Patient may be able to be discharged from our perspective, we'll make him a follow-up appointment to see Dr. Mari in the office post discharge. DNP note has been reviewed, I agree with a documented findings and plan of care. Patient was seen and examined.
[2019-06-24 12:18] LABS: Glucose,Whole Blood 108 mg/dL (75-99)
--- NOTE | 2019-06-24 12:48 | P.PN ---
Subjective Progress Note Date: 06/24/19 On today's evaluation of the 06/24/20192019 the patient is postop day #4. He is on room air oxygen. He is using incentive spirometer. His doing extremely well. Chest soreness is present. Pain is under good control. No cardiac arrhythmias. No nausea. No vomiting. No abdominal pain is ambulating. No cardiac arrhythmias of been noted. All of the chest is of removed and the patient is being considered for discharge today. He is known to have diabetes mellitus type 2 [id number]. He is known to have hypertension and hyperlipidemia. He also has history of psoriasis. He has a preoperative ejection fraction of 40%. Objective - Vital Signs Vital signs: Vital Signs Temp 98.6 F 06/24/19 08:00 Pulse 80 06/24/19 09:15 Resp 20 06/24/19 08:00 BP 131/59 06/24/19 08:00 Pulse Ox 96 06/24/19 09:06 Intake & Output 06/23/19 06/24/19 06/24/19 18:59 06:59 18:59 Intake Total 510 60 20 Output Total 850 Balance -340 60 20 Weight 100.6 kg 100.6 kg Intake: IV 50 60 20 Invasive Line 2 10 Invasive Line 5 40 60 20 Oral 460 Output: Urine 850 Other: Voiding Method Urinal Urinal # Voids 1 ABP, PAP, CO, CI - Last Documented Arterial Blood Pressure 99/44 Pulmonary Artery Pressure 16/7 Cardiac Output 5.7 Cardiac Index 2.6 - Exam GENERAL EXAM: Alert, very pleasant, 68-year-old white male, room air with a pulse ox of 96%, sitting up in the recliner comfortable in no apparent distress. The patient is on room air oxygen HEAD: Normocephalic/atraumatic. EYES: Normal reaction of pupils, equal size. Conjunctiva pink, sclera white. NOSE: Clear with pink turbinates. THROAT: No erythema or exudates. NECK: No masses, no JVD, no thyroid enlargement, no adenopathy. CHEST: No chest wall deformity. Symmetrical expansion. Midsternal incision is clean dry and intact, chest tubes have been removed and the epicardial AV wires were also removed. LUNGS: Equal air entry with no crackles, wheeze, rhonchi or dullness. Breath sounds are slightly more diminished on the right lung base. CVS: Regular rate and rhythm, normal S1 and S2, no gallops, no murmurs, no rubs. Transit rhythm is sinus rhythm in the 70s ABDOMEN: Soft, nontender. No hepatosplenomegaly, normal bowel sounds, no guarding or rigidity. EXTREMITIES: No clubbing, no edema, no cyanosis, 2+ pulses and upper and lower extremities. SCDs are in place MUSCULOSKELETAL: Muscle strength and tone normal. SPINE: No scoliosis or deformity SKIN: No rashes, right leg incision clean dry and intact, CENTRAL NERVOUS SYSTEM: Alert and oriented -3. No focal deficits, tone is normal in all 4 extremities. PSYCHIATRIC: Alert and oriented -3. Appropriate affect. Intact judgment and insight. - Labs CBC & Chem 7: 06/24/19 05:47 06/24/19 05:47 Labs: Abnormal Lab Results - Last 24 Hours (Table) 06/23/19 06/23/19 06/24/19 Range/Units 16:48 20:35 05:47 RBC 2.78 L (4.30-5.90) m/uL Hgb 8.6 L (13.0-17.5) gm/dL Hct 26.0 L (39.0-53.0) % Sodium (137-145) mmol/L BUN (9-20) mg/dL Glucose (74-99) mg/dL POC Glucose (mg/dL) 116 H 157 H (75-99) mg/dL 06/24/19 06/24/19 06/24/19 Range/Units 05:47 06:12 12:11 RBC (4.30-5.90) m/uL Hgb (13.0-17.5) gm/dL Hct (39.0-53.0) % Sodium 133 L (137-145) mmol/L BUN 27 H (9-20) mg/dL Glucose 118 H (74-99) mg/dL POC Glucose (mg/dL) 139 H 108 H (75-99) mg/dL Assessment and Plan Plan: #1. Multivessel coronary artery disease, status post four-vessel bypass grafting, with BLACKBURN to LAD, SVG to the diagonal, SVG to the PDA, SVG to the OM, and left atrial appendage exclusion, postoperative day 5 #2. Post thoracotomy and the chest tubes are all removed and the patient is currently on room air. #3. Postoperative blood loss anemia, normal outcome of bypass grafting surgery, has not required transfusion, the hemoglobin is stable for now and is running at 8.3. #4. History of coronary artery disease with previous stent placement to the RCA in 2000 in 2002 #5. Diabetes mellitus type 2, on sliding scale coverage #6. Hypertension #7. Dyslipidemia on Lipitor Plan Continue using incentive spirometer. No active pulmonary issues for now. Patient is currently on room air oxygen The chest x-ray from today shows a trace right-sided pleural effusion and some atelectatic changes in the lung bases. There is some poststernotomy changes. No other acute abnormalities have been noted and the patient will be discharged home today to be followed up on outpatient basis.
[2019-06-24] MEDS: ISOSORBIDE MONONITRATE ER 30 MG TAB.ER.24H PO SCH (12:54)
--- NOTE | 2019-06-24 13:59 | P.DS ---
Providers Date of admission: 06/19/19 06:20 Expected date of discharge: 06/24/19 Attending physician: Jamel Wolff Consults: 06/19/19 15:05 Consult Physician Routine Consulting Provider: Chirag Pruitt Consult Reason/Comments: High Reach Operator Consult: post cardiac surgery Do you want consulting provider notified?: Yes Consult Physician Routine Consulting Provider: Mitchell Fernando Consult Reason/Comments: Ida santos patient Do you want consulting provider notified?: Yes Consult Physician Routine Consulting Provider: Shawn Mari Consult Reason/Comments: Multiple Tube Winding Machine Operator Consult: post cardiac surgery Do you want consulting provider notified?: Yes [facility] Course: FINAL DIAGNOSIS: 1. Coronary artery disease 2. Previous myocardial infarction with stent placement in 2000 and 2002 to the RCA 3. Ischemic cardiomyopathy with EF 40-45% 4. Hypertension 5. Hyperlipidemia 6. Diabetes mellitus. Preoperative hemoglobin A1c 5.3% 7. Family history of premature coronary artery disease 8. Postoperative acute blood loss anemia PRINCIPAL PROCEDURE: 1. Coronary artery bypass grafting 4 vessels, left internal mammary artery to the left anterior descending artery, reverse saphenous vein graft to the diagonal artery, reverse saphenous vein graft to the posterior descending artery, reverse saphenous vein graft to the obtuse marginal artery 2. Endoscopic harvesting of the right greater saphenous vein 3. Epi-aortic ultrasound 4. Intraoperative transesophageal echocardiogram 5. Ligation of the left atrial appendage using a 35 mm AtriCure clip HISTORY OF PRESENT ILLNESS: This is a 68-year-old gentleman who follows on an outpatient basis with Dr. Jalen Prieto. Recently he had been experiencing shortness of breath especially in cold weather but denied any other symptomatology. He underwent echocardiogram at Dr. Mari's office demonstrating decreased systolic function with ejection fraction of 45%, mild mitral regurgitation, mild aortic insufficiency, and mild tricuspid regurgitation. In addition he underwent stress testing which was abnormal. He was recommended to undergo heart catheterization which demonstrated 30-40% stenosis of the proximal left anterior descending coronary artery, 99% stenosis to the mid left anterior descending coronary artery, 90% stenosis to the circumflex coronary artery, and 80% stenosis to the proximal right coronary artery with total occlusion of the stent in the mid segment and distal segment of the right coronary artery. Consultation was placed to Dr. Wolff from cardiothoracic surgery. He was recommended to undergo elective CABG. The usual perioperative course was discussed in detail with the patient and his family, all risks and benefits were explained, all questions were answered, and consent was obtained to proceed with surgery. The patient was discharged to home on maximal medical therapy to return as an outpatient for surgery. HOSPITAL COURSE: The patient was brought to the hospital on 06/19/2019, taken to the preoperative area, prepared in the usual fashion, and subsequently taken to the operating room where Dr. Wolff performed a four-vessel CABG. Upon completion of surgery the patient was transferred to the cardiovascular intensive care unit where he was recovered, monitored hemodynamically, and where he progressed to cardiac rehabilitation phase 1. He was extubated, all lines, tubes, and drips were discontinued when appropriate, and he was transferred to 3 S. cardiac stepdown unit for further monitoring and rehabilitation. His oxygen was titrated down, he continued to work with physical and occupational therapy, he was tolerating oral diet, his pain was controlled, and he was ready to be discharged to home with [facility] on postoperative day #5. He received written and verbal instruction regarding his medications, activity restrictions, signs and symptoms requiring physician notification, and follow-up appointments. COMPLICATIONS: The patient experienced postoperative blood loss anemia requiring no intervention. Patient Condition at Discharge: Stable Plan - Discharge Summary Discharge Rx Participant: Yes New Discharge Prescriptions: New Aspirin 325 mg PO DAILY #30 tab Isosorbide Mononitrate ER [Imdur] 30 mg PO DAILY@1200 #30 tab.er.24h Metoprolol Tartrate [Lopressor] 50 mg PO BID #60 tab Clopidogrel [Plavix] 75 mg PO DAILY #30 tab Pantoprazole [Protonix] 40 mg PO AC-BRKFST #30 tablet.dr Cabrera-Docusate Sodium [Senokot-S] 2 each PO HS PRN tab PRN Reason: Constipation Acetaminophen Tab [Tylenol] 1,000 mg PO Q6HR PRN tab PRN Reason: Fever And/ Or Pain Lisinopril [Zestril] 5 mg PO BID #60 tab Continue Cholecalciferol [Vitamin D3 (25 Mcg = 1000 Iu)] 4,000 unit PO DAILY metFORMIN HCL 500 mg PO BID Atorvastatin [Lipitor] 40 mg PO HS Multivit-Min/FA/Lycopen/Lutein [Centrum Silver Men Tablet] 1 each PO DAILY Discontinued Aspirin EC [Ecotrin] 81 mg PO DAILY Enalapril [Vasotec] 20 mg PO QAM Metoprolol Tartrate [Lopressor] 25 mg PO BID Discharge Medication List Atorvastatin [Lipitor] 40 mg PO HS 08/09/18 [History] Cholecalciferol [Vitamin D3 (25 Mcg = 1000 Iu)] 4,000 unit PO DAILY 08/09/18 [History] Multivit-Min/FA/Lycopen/Lutein [Centrum Silver Men Tablet] 1 each PO DAILY 08/09/18 [History] metFORMIN HCL 500 mg PO BID 08/09/18 [History] Acetaminophen Tab [Tylenol] 1,000 mg PO Q6HR PRN tab 06/24/19 [Rx] Aspirin 325 mg PO DAILY #30 tab 06/24/19 [Rx] Clopidogrel [Plavix] 75 mg PO DAILY #30 tab 06/24/19 [Rx] Isosorbide Mononitrate ER [Imdur] 30 mg PO DAILY@1200 #30 tab.er.24h 06/24/19 [Rx] Lisinopril [Zestril] 5 mg PO BID #60 tab 06/24/19 [Rx] Metoprolol Tartrate [Lopressor] 50 mg PO BID #60 tab 06/24/19 [Rx] Pantoprazole [Protonix] 40 mg PO AC-BRKFST #30 tablet.dr 06/24/19 [Rx] Sennosides-Docusate Sodium [Senokot-S] 2 each PO HS PRN tab 06/24/19 [Rx] Follow up Appointment(s)/Referral(s): Tangela Toro NPC [Nurse Practitioner] - 07/01/19 10:30 am Shawn Mari MD [STAFF PHYSICIAN] - 07/11/19 4:00 pm Rehab Kenny GONZALEZ,Cardiac [NON-STAFF] - 4 Weeks (You will be called in approximately 4 weeks by cardiac rehab to set up evaluation) Chirag Pruitt DO [Doctor of Osteopathic Medicine] - 07/05/19 1:00 pm Jamel Wolff MD [STAFF PHYSICIAN] - 07/25/19 9:00 am Jalen Prieto MD [Primary Care Provider] - 07/08/19 11:30 am [facility] Visiting Nurse, [NON-STAFF] - 1-2 Days Ambulatory/Diagnostic Orders: Complete Blood Count w/diff [LAB.AMB] Time Frame: 3 Days, Location: None Selected Comprehensive Metabolic Panel [LAB.AMB] Time Frame: 3 Days, Location: None Selected Patient Instructions/Handouts: How to Use an Incentive Spirometer (DC), Heart Healthy Diet (DC), Sternal Precautions (GEN), CABG (Coronary Artery Bypass Graft) (DC) Activity/Diet/Wound Care/Special Instructions: DISCHARGE INSTRUCTIONS: 1. No driving for 4 weeks, or until physician gives their ok. 2. The patient should sleep in their own bed, no medical bed needed. 3. Stairs are not an issue. If the bedroom is upstairs, it is advised that the patient go up at night and down in the morning for the first week. Go slowly, using handrail and take 1 step at a time. 4. LAMBERTO hose are to be worn for 30 days or until physician discontinues. 5. Heart hugger is to be worn 100% of the time until physician discontinues.(except when showering) 6. No lifting, pushing, or pulling more than 10 pounds for 12 weeks. The physician will advise of any restriction changes. 7. The patient is expected to continue the prescribed walking program. 8. Continue pain control per as needed orders. 9. Continue with incentive spirometry and splinting/heart hugger until otherwise directed by the physician. 10. Must shower daily using liquid antibacterial soap and a separate white washcloth for each individual incision. 11. Routine sternal incision care. No powders, lotions, ointments on incisions. No dressings are necessary on incisions unless they are draining. Dermabond tape is to remain on sternal incision until surgeon follow-up. 12. Please call surgeon/WIRE SPRING RELAY ADJUSTER for temp greater than 101 F or purulent drainage from incisions. 13. All prescriptions given by surgeon for 30 days. Refills need to be filled through dredge hand/primary care physician. 14. A Red armband has been placed on the patient. It should be worn for 30 days post surgery and will be removed by the cardiac surgeons. If an ER visit is necessary, please make sure the number on the Red armband is called. 15. You have been referred to and are expected to begin Cardiac Rehab in approximately 4-6 weeks. HOME HEALTH SERVICES TO PROVIDE: RN SKILLED HOME CARE SERVICES FOR POST-OP SURGICAL PATIENTS WITH THE FOLLOWING: Coronary Artery Bypass Surgery (CABG), Mitral Valve Replacement/Repair ( MVR), Aortic Valve Replacement/Repair (AVR) RN TO CONTINUE EDUCATION FROM ``ROAD TO A HEALTH HEART PATIENT EDUCATION MANUAL (GIVEN TO PATIENT IN THE HOSPITAL) MEDICATION RECONCILIATION WITH EDUCATION NEEDED ON FIRST HOME VISIT EMPHASIZE IMPORTANCE OF WEARING BREAST SUPPORT/HEART HUGGER ENCOURAGE USE OF INCENTIVE SPIROMETER 10 X EVERY HOUR WHILE AWAKE ENCOURAGE UTILIZATION OF LOWER EXTREMITY COMPRESSION STOCKINGS/LAMBERTO HOSE and ELEVATE LEGS ABOVE LEVEL OF HEART WHILE AT REST. ENCOURAGE AMBULATION 3-5x/day INCREASING TOLERATES, WHILE AVOIDING EXTREMES IN TEMPERATURE FREQUENCY: RN TO OPEN THE PATIENT WITHIN 24 HOURS OF DISCHARGE FROM THE HOSPITAL WITH TELEHEALTH INSTALLED AT [facility] [place], RN TO VISIT 2-3 X A WEEK FOR 4 WEEKS ESTABLISHED BY PATIENT NEEDS. LABORATORY: CBC, CMP TO BE DRAWN ON THE THIRD DAY HOME, (RAN STAT) FAX RESULTS TO [phone]. TELEHEALTH PARAMETERS: WEIGHT: NOTIFY MD OF WEIGHT GAIN OF 2 LBS IN 24 HOURS OR 5 LBS IN ONE WEEK HR: NOTIFY MD OF HR <55 BPM OR HR>100 BPM BP: NOTIFY MD IF BP <90/55 OR BP>140/100 O2 SAT: NOTIFY MD IF PO2<93% ON ROOM AIR SEND TELEHEALTH REPORT TO ICT TRAINER AND CARDIOVASCULAR SURGEON THE FIRST WEEK OF CARE AND THEN BI-WEEKLY. PLEASE ADDITIONALLY COMMUNICATE ANY ABNORMALS AND NEW FINDINGS TO THE SURGEONS OFFICE. For any questions or concerns please call bike mechanic Tangela @ or Horacio @ Discharge Disposition: HOME WITH HOME HEALTH SERVICES
--- NOTE | 2019-06-24 14:04 | P.PN ---
Progress Note - Text Progress Note Date: 06/24/19 - Chief Complaint Coronary bypass Consultation: This is a pleasant 68-year-old patient of Dr. Jalen alvarado. Chronic stable medical conditions include diabetes, hypertension, hyperlipidemia, psoriasis. Patient status post coronary bypass. Today-. Cheerful. Up and about. Breathing stable. Good oral intake. Has a bowel movement.. Review of systems: Was done for constitutional, cardiovascular, GI, pulmonary. relevant finding as above. Active Medications Acetaminophen (Tylenol Tab) 1,000 mg PO Q6HR PRN PRN Reason: Fever and/ or Pain Last Admin: 06/23/19 00:24 Dose: 1,000 mg Documented by: Albuterol/Ipratropium (Duoneb 0.5 Mg-3 Mg/3 Ml Soln) 3 ml INHALATION RT-Q2H PRN PRN Reason: Shortness Of Breath Or Wheezing Albuterol/Ipratropium (Duoneb 0.5 Mg-3 Mg/3 Ml Soln) 3 ml INHALATION RT-QID COUNT INCLUDES THE [facility] Last Admin: 06/24/19 11:59 Dose: Not Given Documented by: Aspirin (Aspirin) 325 mg PO DAILY COUNT INCLUDES THE [facility] Last Admin: 06/24/19 09:43 Dose: 325 mg Documented by: Atorvastatin Calcium (Lipitor) 40 mg PO DAILY COUNT INCLUDES THE [facility] Last Admin: 06/24/19 09:43 Dose: 40 mg Documented by: Benzocaine/Menthol (Cepacol Lozenge) 1 each MUCOUS MEM Q2H PRN PRN Reason: Sore Throat Last Admin: 06/22/19 23:23 Dose: 1 each Documented by: Bisacodyl (Dulcolax) 10 mg RECTAL DAILY PRN PRN Reason: Constipation Last Admin: 06/22/19 05:02 Dose: 10 mg Documented by: Cholecalciferol (Vitamin D3 (25 Mcg = 1000 Iu)) 4,000 unit PO DAILY COUNT INCLUDES THE [facility] Last Admin: 06/24/19 09:43 Dose: 4,000 unit Documented by: Clopidogrel Bisulfate (Plavix) 75 mg PO DAILY COUNT INCLUDES THE [facility] Last Admin: 06/24/19 09:43 Dose: 75 mg Documented by: Colchicine (Colcrys) 0.6 mg PO BID COUNT INCLUDES THE [facility] Last Admin: 06/24/19 09:43 Dose: 0.6 mg Documented by: Heparin Sodium (Porcine) (Heparin) 5,000 unit SQ Q8HR COUNT INCLUDES THE [facility] Last Admin: 06/24/19 09:43 Dose: 5,000 unit Documented by: Amiodarone HCl 150 mg/ (Dextrose/Water) 103 mls @ 618 mls/hr IV .Q10M PRN; Protocol PRN Reason: A.FIB/FLUTTER Amiodarone HCl 360 mg/ (Dextrose/Water) 200 mls @ 33.333 mls/hr IV .Q6H PRN; Protocol PRN Reason: A.FIB/FLUTTER Amiodarone HCl 300 mg/ (Dextrose/Water) 250 mls @ 25 mls/hr IV .Q10H PRN; Protocol PRN Reason: A.FIB/FLUTTER Insulin Aspart (Novolog) 0 unit SQ ACHS COUNT INCLUDES THE [facility]; Protocol Last Admin: 06/24/19 12:46 Dose: Not Given Documented by: Isosorbide Mononitrate (Imdur) 30 mg PO DAILY@1200 COUNT INCLUDES THE [facility] Last Admin: 06/24/19 12:54 Dose: 30 mg Documented by: Lisinopril (Zestril) 5 mg PO BID COUNT INCLUDES THE [facility] Last Admin: 06/24/19 09:43 Dose: 5 mg Documented by: Magnesium Hydroxide (Milk Of Magnesia) 2,400 mg PO BID PRN PRN Reason: Constipation Last Admin: 06/21/19 13:03 Dose: 2,400 mg Documented by: Metoclopramide HCl (Reglan) 10 mg IVP Q4H PRN PRN Reason: Nausea And Vomiting Last Admin: 06/21/19 17:18 Dose: 10 mg Documented by: Metoprolol Tartrate (Lopressor) 50 mg PO BID COUNT INCLUDES THE [facility] Last Admin: 06/24/19 09:43 Dose: 50 mg Documented by: Miscellaneous Information (Magnesium Per Protocol) 1 each MISCELLANE DAILY PRN; Protocol PRN Reason: Per Protocol Miscellaneous Information (Phosphorus Per Protocol) 1 each MISCELLANE DAILY PRN; Protocol PRN Reason: Per Protocol Miscellaneous Information (Potassium Per Protocol) 1 each MISCELLANE DAILY PRN; Protocol PRN Reason: Per Protocol Multivitamins (Theragran) 1 each PO DAILY COUNT INCLUDES THE [facility] Last Admin: 06/24/19 09:43 Dose: 1 each Documented by: Ondansetron HCl (Zofran) 4 mg IVP Q6HR PRN PRN Reason: Nausea And Vomiting Last Admin: 03/05/20 06:58 Dose: 4 mg Documented by: Pantoprazole Sodium (Protonix) 40 mg PO AC-BRKFST COUNT INCLUDES THE [facility] Last Admin: 06/24/19 06:30 Dose: 40 mg Documented by: Senna/Docusate Sodium (Senokot-S) 2 each PO HS COUNT INCLUDES THE [facility] Last Admin: 06/23/19 22:45 Dose: 2 each Documented by: Sodium Chloride (Saline Flush) 10 ml IV BID COUNT INCLUDES THE [facility] Last Admin: 06/24/19 12:46 Dose: Not Given Documented by: Physical examination: VITAL SIGNS: 98.6, 92, 20, 131/59, 96% room air GENERAL: Sitting on a chair, comfortable EYES: Pupils equal. Conjunctiva pale. HEENT: External appearance of nose and ears normal, oral cavity grossly normal. NECK: JVD unable to assess; masses not palpable. HEART: First and second heart sounds are normal; no edema. LUNGS: Respiratory rate normal; decreased breath sounds. ABDOMEN: Soft, nontender, liver spleen not palpable, no masses palpable. PSYCH: Alert and oriented x3; mood and affect tired INVESTIGATIONS, reviewed in the clinical context: White count 5.8, hemoglobin 8.6, potassium 4.4, creatinine 0.77 Previous testing Lab work from June 11 showed a hemoglobin of 14.7 and a platelets of 213 Potassium 4.8 creatinine 0.78 Chest x-ray film-atelectasis Assessment: -Coronary bypass, currently with 2 mediastinal and one left pleural chest tube- old tubes toe removed -Coronary artery disease -Diabetes mellitus type 2 on oral hypoglycemic -Hyperlipidemia -Essential hypertension -psoriases -Acute postprocedure blood loss anemia expected from surgery -Dilutional thrombocytopenia -Obesity BMI 30.7 Plan: Stable. Doing well. Continue current medication. Should follow-up with his PCP shortly. Upon discharge. Thank you Dr. Wolff.
== END 2019-06-24 15:01 | disposition home health service (06) | DRG 236 ==
LOC: 2ORMAIN 06:20 → 2SICU 15:31 → 3SCARD 06-23 04:21
PROVIDERS: ADMIT Surgery; ATTEND Surgery
PROC: 06BP4ZZ Excision of Right Saphenous Vein, Percutaneous Endoscopic Approach (ICD-10-PCS; 2019-06-19)
PROC: 02L70CK Occlusion of Left Atrial Appendage with Extraluminal Device, Open Approach (ICD-10-PCS; 2019-06-19)
PROC: 5A1221Z Performance of Cardiac Output, Continuous (ICD-10-PCS; 2019-06-19)
PROC: 02100Z9 Bypass Coronary Artery, One Artery from Left Internal Mammary, Open Approach (ICD-10-PCS; principal; 2019-06-19 09:00)
PROC: 021209W Bypass Coronary Artery, Three Arteries from Aorta with Autologous Venous Tissue, Open Approach (ICD-10-PCS; 2019-06-19 09:00)
DX: I25.119 Atherosclerotic heart disease of native coronary artery with unspecified angina pectoris (principal); T82.855A Stenosis of coronary artery stent, initial encounter; D62 Acute posthemorrhagic anemia; J98.11 Atelectasis; I31.9 Disease of pericardium, unspecified; E11.649 Type 2 diabetes mellitus with hypoglycemia without coma; I25.82 Chronic total occlusion of coronary artery; D69.59 Other secondary thrombocytopenia; I10 Essential (primary) hypertension; E78.5 Hyperlipidemia, unspecified; I25.5 Ischemic cardiomyopathy; L40.9 Psoriasis, unspecified; I08.3 Combined rheumatic disorders of mitral, aortic and tricuspid valves; M41.9 Scoliosis, unspecified; E66.9 Obesity, unspecified; R00.0 Tachycardia, unspecified; I25.2 Old myocardial infarction; Z68.30 Body mass index [BMI] 30.0-30.9, adult; Z79.899 Other long term (current) drug therapy; Z79.82 Long term (current) use of aspirin; Z79.84 Long term (current) use of oral hypoglycemic drugs; Z98.42 Cataract extraction status, left eye; Z98.41 Cataract extraction status, right eye; Z95.5 Presence of coronary angioplasty implant and graft; Z96.653 Presence of artificial knee joint, bilateral; Z98.890 Other specified postprocedural states; Z82.49 Family history of ischemic heart disease and other diseases of the circulatory system; Z82.0 Family history of epilepsy and other diseases of the nervous system
CPT/HCPCS: 71045; 71046; 80048; 80053; 82330; 82805; 83735; 85025; 85027; 85520; 85610; 85730; 86850; 86891; 86900; 86901; 86920; 94002; 94640; 94760; 94770

== ENCOUNTER → 2019-12-06 | Outpatient (CLI) | payer MEDICARE ==
[2019-12-06 16:42] LABS: African American GFR (CKD) 71.1 (60.0-200.0); Albumin/Globulin Ratio 2.27 (1.60-3.17); Anion Gap 10.3 mmol/L (4.00-12.00); Calcium 10.1 mg/dL (8.7-10.3); Carbon Dioxide 23.7 mmol/L (21.6-31.8); Chol/HDL Ratio 3.85; Globulin 2.2 g/dL (1.6-3.3); LDL Cholesterol,Calculated 80.4 mg/dL (0.0-131.0); Non-African American GFR(CKD) 61.3 (60.0-200.0); Potassium 5.3 mmol/L (3.5-5.5); Total Bilirubin 1.3 mg/dL (0.3-1.2); Total Protein 7.2 g/dL (6.2-8.2); VLDL Calculation 33.6 mg/dL (5.00-40.00)
== END | disposition home or self-care (01) ==
LOC: LABWHC1 08:26
PROVIDERS: ATTEND Internal Medicine Interventional Cardiology
DX: E78.2 Mixed hyperlipidemia (principal)
CPT/HCPCS: 36415; 80053; 80061

== ENCOUNTER → 2020-03-16 | Outpatient (CLI) | payer MEDICARE ==
[2020-03-16 15:46] LABS: African American GFR (CKD) 71.1 (60.0-200.0); Anion Gap 8.3 mmol/L (4.00-12.00); Carbon Dioxide 23.7 mmol/L (21.6-31.8); Non-African American GFR(CKD) 61.3 (60.0-200.0); Potassium 4.5 mmol/L (3.5-5.5)
== END | disposition home or self-care (01) ==
LOC: LABWHC1 09:01
PROVIDERS: ATTEND Nurse Practitioner Adult Health
DX: I10 Essential (primary) hypertension (principal)
CPT/HCPCS: 36415; 80051; 82565; 84520

== ENCOUNTER → 2020-12-14 | Outpatient (CLI) | payer MEDICARE ==
[2020-12-14 16:10] LABS: African American GFR (CKD) 58.6 (60.0-200.0); Albumin/Globulin Ratio 2.27 (1.60-3.17); Anion Gap 7.9 mmol/L (4.00-12.00); BUN/Creat Ratio 32.14 Ratio (12.00-20.00); Carbon Dioxide 23.1 mmol/L (21.6-31.8); Chol/HDL Ratio 4.73; Globulin 2.2 g/dL (1.6-3.3); LDL Cholesterol,Calculated 75.8 mg/dL (0.0-131.0); Non-African American GFR(CKD) 50.5 (60.0-200.0); Potassium 5.3 mmol/L (3.5-5.5); Total Protein 7.2 g/dL (6.2-8.2); VLDL Calculation 47.2 mg/dL (5.00-40.00)
== END | disposition home or self-care (01) ==
LOC: LABWHC1 07:37
PROVIDERS: ATTEND Nurse Practitioner Adult Health
DX: E78.2 Mixed hyperlipidemia (principal); I10 Essential (primary) hypertension
CPT/HCPCS: 36415; 80053; 80061

== ENCOUNTER → 2021-08-19 | Outpatient (CLI) | payer MEDICARE ==
[2021-08-19 15:16] LABS: ALT 39 U/L (10-49); AST 23 U/L (14-35); African American GFR (CKD) 70.6 (60.0-200.0); Alkaline Phosphatase 104 U/L (41-126); BUN/Creat Ratio 31.83 Ratio (12.00-20.00); Blood Urea Nitrogen 38.2 mg/dL (9.0-27.0); Calcium 10.3 mg/dL (8.7-10.3); Chloride 102 mmol/L (96-109); Chol/HDL Ratio 4.52 Ratio; Globulin 2.5 g/dL (1.6-3.3); Glucose 120 mg/dL (70-110); LDL Cholesterol,Calculated 76.2 mg/dL (0.0-131.0); Non-African American GFR(CKD) 60.9 (60.0-200.0); Potassium 4.6 mmol/L (3.5-5.5); Sodium 137 mmol/L (135-145); Total Protein 7.5 g/dL (6.2-8.2)
== END | disposition home or self-care (01) ==
LOC: LABWHC1 09:06
PROVIDERS: ATTEND Nurse Practitioner Adult Health
DX: I10 Essential (primary) hypertension (principal); E78.2 Mixed hyperlipidemia
CPT/HCPCS: 36415; 80053; 80061

== ENCOUNTER → 2023-05-03 | Outpatient (CLI) | payer MEDICARE ==
--- NOTE | 2023-05-03 14:07 | XR ---
EXAMINATION TYPE: XR foot complete RT DATE OF EXAM: 05/03/2023 COMPARISON: NONE HISTORY: 72-year-old male M79.671 PAIN IN RIGHT FOOT. TECHNIQUE: 3 views FINDINGS: Degenerative spurring at the first metatarsal sesamoid joints. Some lucency at the distal s pur of the sesamoid on the lateral view. Otherwise, no acute fracture, subluxation, dislocation seen. IMPRESSION: Either chronic fragmentation versus a tiny fractured spur along the distal aspect of the sesamoid bon e on the lateral view. Correlate for any point tenderness and for any potential mechanism of injury s uch as turf toe. Underlying degenerative change at the first metatarsal sesamoid joint. Otherwise, no acute osseous abnormality seen.
== END | disposition home or self-care (01) ==
LOC: RADXRMAIN 10:10
PROVIDERS: ATTEND Student in an Organized Health Care Education/Training Program
DX: M19.071 Primary osteoarthritis, right ankle and foot (principal)

== ENCOUNTER → 2023-08-30 | Outpatient (CLI) | payer MEDICARE ==
[2023-08-30 14:30] LABS: Basophils # (A) 0.07 X 10*3/uL (0.00-0.10); Basophils % (A) 1.7 %; Eosinophils # (A) 0.34 X 10*3/uL (0.04-0.35); Eosinophils % (A) 8.2 %; HCT 43.7 % (39.6-50.0); HGB 14.5 g/dL (13.0-17.0); Lymphocytes # (A) 0.85 X 10*3/uL (0.90-5.00); Lymphocytes % (A) 20.4 %; MCH 31.6 pg (27.0-32.0); MCHC 33.2 g/dL (32.0-37.0); MCV 95.2 FL (80.0-97.0); Mean Platelet Volume 10.1 FL (9.5-12.2); Monocytes # (A) 0.52 X 10*3/uL (0.20-1.00); Monocytes % (A) 12.5 %; NRBC Per 100 WBC 0 X 10*3/uL (0.00-0.01); Neutrophils # (A) 2.38 X 10*3/uL (1.80-7.70); Platelet Count 183 X 10*3/uL (140-440); RBC 4.59 X 10*6/uL (4.40-5.60); RDW 13.6 % (11.5-14.5); WBC 4.17 X 10*3/uL (4.50-10.00)
[2023-08-30 14:31] LABS: Appearance,Urine Clear (Clear); Bilirubin,Urine Negative (Negative); Blood,Urine Negative (Negative); Color,Urine Yellow (Yellow); Ketones,Urine Negative (Negative); Nitrite,Urine Negative (Negative); PH, Urine 5.5; Specific Gravity,Urine 1.014 (1.001-1.030); Urobilinogen,Urine 0.2 E.U./DL
[2023-08-30 15:12] LABS: % Iron Saturation 31.83 (15.00-50.00); Albumin 4.8 g/dL (3.8-4.9); BUN/Creat Ratio 23.09 Ratio (12.00-20.00); Blood Urea Nitrogen 25.4 mg/dL (9.0-27.0); Calcium 10.1 mg/dL (8.7-10.3); Carbon Dioxide 21.2 mmol/L (21.6-31.8); Chloride 102 mmol/L (96-109); Glucose 161 mg/dL (70-110); Iron 99 UG/DL (65-175); Magnesium 2.1 mg/dL (1.5-2.4); Phosphorus 3.2 mg/dL (2.4-5.1); Sodium 138 mmol/L (135-145); Total Iron Binding Capacity 311 UG/DL (228-460); Uric Acid 9.2 mg/dL (3.7-8.7)
[2023-08-31 00:20] LABS: Microalbumin Creatinine Ratio <12 mg/g Cr (0-30)
== END | disposition home or self-care (01) ==
LOC: LABWHC1 08:12
PROVIDERS: ATTEND Internal Medicine Nephrology
DX: E55.9 Vitamin D deficiency, unspecified (principal); N25.81 Secondary hyperparathyroidism of renal origin; M10.9 Gout, unspecified; N39.0 Urinary tract infection, site not specified; N18.32 Chronic kidney disease, stage 3b; D63.1 Anemia in chronic kidney disease
CPT/HCPCS: 36415; 80048; 81003; 82040; 82043; 82306; 82570; 82728; 83540; 83550; 83735; 83970; 84100; 84550; 85025; 86334; 86335

== ENCOUNTER → 2023-11-21 | Outpatient (CLI) | payer MEDICARE | END | disposition home or self-care (01) | LOC: LABWHC1 13:50 | PROVIDERS: ATTEND Nurse Practitioner Family | DX: N18.32 Chronic kidney disease, stage 3b (principal); N25.81 Secondary hyperparathyroidism of renal origin; M10.9 Gout, unspecified; N39.0 Urinary tract infection, site not specified; D63.1 Anemia in chronic kidney disease | CPT/HCPCS: 80048; 81003; 82043; 82570; 82728; 83540; 83550; 83970; 84466; 84550; 85025 ==

== ENCOUNTER 2024-06-26 06:47 | Day surgery (SDC) | payer MEDICARE ==
[2024-06-26] MEDS: IV FLUID CONTINUATION 1,000 ML IV ONE (07:25)
[2024-06-26 07:28] VITALS: TEMP 97.3
[2024-06-26] MEDS: LACTATED RINGERS 1,000 ML IV SCH (07:36)
[2024-06-26 07:43] LABS: Glucose,Whole Blood 131 mg/dL (70-110)
[2024-06-26] MEDS ORDERED: PROPOFOL 10 MG/ML 20 ML VIAL IV ONE (08:19)
[2024-06-26] MEDS ORDERED: LIDOCAINE 1% INJ 10MG/ML (20 ML MDV) ONE (08:19)
--- NOTE | 2024-06-26 08:42 | P.PCN ---
Date of Procedure: 06/26/24 Procedure(s) Performed: BRIEF HISTORY: Patient is a 73-year-old pleasant white male scheduled for an elective colonoscopy as a part of screening for history of colon polyps. PROCEDURE PERFORMED: Colonoscopy with biopsy. PREOPERATIVE DIAGNOSIS: Screening for history of colon polyps. IV sedation per Anesthesia. PROCEDURE: After informed consent was obtained, the patient, was brought into the endoscopy unit. IV sedation was administered by Anesthesia under continuous monitoring. Digital rectal examination was normal. Initially the Olympus CF-160 flexible video colonoscope was then inserted in the rectum, gradually advanced into the cecum without any difficulty. Careful examination was performed as the scope was gradually being withdrawn. Ileocecal valve and the appendiceal orifice were visualized and appeared normal. Prep was excellent. Mucosa of the cecum, ascending colon, transverse colon appeared normal. The descending colon there was a 3 mm sessile polyp removed by cold biopsy. Rest of the, descending colon, sigmoid colon, and rectum appeared normal. In the proximal rectum there was a 5 mm polyp that was removed by cold biopsy. Scattered sigmoid diverticulosis seen. Retroflexion was performed in the rectum and no lesions were seen. The patient tolerated the procedure well. IMPRESSION: 3 mm ascending colon polyp status post cold biopsy 5 mm proximal rectal polyp status post cold biopsy Scattered sigmoid diverticulosis RECOMMENDATIONS: Findings of this examination were discussed with the patient as well as her family. He was advised to follow-up with the biopsy results. If the biopsy reveals adenoma he can have repeat colonoscopy in 5 years..
[2024-06-26 08:48] VITALS: RESP 14
[2024-06-26 09:02] VITALS: BP 108/65; PULSE 58
== END 2024-06-26 09:25 | disposition home or self-care (01) ==
LOC: ORWHC2ENDO 06:47
PROVIDERS: ATTEND Internal Medicine Gastroenterology
DX: Z12.11 Encounter for screening for malignant neoplasm of colon (principal); K57.30 Diverticulosis of large intestine without perforation or abscess without bleeding; K63.5 Polyp of colon; K62.1 Rectal polyp; I25.10 Atherosclerotic heart disease of native coronary artery without angina pectoris; I25.2 Old myocardial infarction; I10 Essential (primary) hypertension; E78.5 Hyperlipidemia, unspecified; E11.9 Type 2 diabetes mellitus without complications; M19.90 Unspecified osteoarthritis, unspecified site; Z95.1 Presence of aortocoronary bypass graft; Z88.9 Allergy status to unspecified drugs, medicaments and biological substances; Z79.02 Long term (current) use of antithrombotics/antiplatelets; Z79.84 Long term (current) use of oral hypoglycemic drugs; Z79.899 Other long term (current) drug therapy
CPT/HCPCS: 88305; 45380; J2003; J2704

== ENCOUNTER → 2024-10-24 | Outpatient (CLI) | payer MEDICARE ==
[2024-10-24 15:26] LABS: Basophils # (A) 0.06 X 10*3/uL (0.00-0.10); Basophils % (A) 1.3 %; Eosinophils # (A) 0.34 X 10*3/uL (0.04-0.35); Eosinophils % (A) 7.1 %; HCT 47.0 % (39.6-50.0); HGB 14.7 g/dL (13.0-17.0); Immature Grans, Automated 0 %; Lymphocytes # (A) 1.20 X 10*3/uL (0.90-5.00); Lymphocytes % (A) 25.1 %; MCH 30.2 pg (27.0-32.0); MCHC 31.3 g/dL (32.0-37.0); MCV 96.7 FL (80.0-97.0); Monocytes # (A) 0.54 X 10*3/uL (0.20-1.00); Monocytes % (A) 11.3 %; NRBC Per 100 WBC 0 X 10*3/uL (0.00-0.01); Neutrophils # (A) 2.64 X 10*3/uL (1.80-7.70); Neutrophils % (A) 55.2 %; Platelet Count 202 X 10*3/uL (140-440); RBC 4.86 X 10*6/uL (4.40-5.60); RDW 13.9 % (11.5-14.5); WBC 4.78 X 10*3/uL (4.50-10.00)
[2024-10-24 15:44] LABS: ALT 48 U/L (10-49); AST 30 U/L (14-35); Albumin 4.7 g/dL (3.8-4.9); Albumin/Globulin Ratio 2.35 Ratio (1.60-3.17); Alkaline Phosphatase 92 U/L (41-126); Anion Gap 12.10 mmol/L (4.00-12.00); BUN/Creat Ratio 23.92 Ratio (12.00-20.00); Blood Urea Nitrogen 28.7 mg/dL (9.0-27.0); Calcium 9.8 mg/dL (8.7-10.3); Carbon Dioxide 23.9 mmol/L (21.6-31.8); Chloride 104 mmol/L (96-109); Cholesterol 122.00 mg/dL (0.00-200.00); Creatine Kinase 105 U/L (35-257); Globulin 2.0 g/dL (1.6-3.3); Glucose 134 mg/dL (70-110); HDL Cholesterol 38.80 mg/dL (40.00-60.00); LDL Cholesterol,Calculated 47.0 mg/dL (0.0-131.0); Magnesium 2.3 mg/dL (1.5-2.4); Potassium 5.0 mmol/L (3.5-5.5); Sodium 140 mmol/L (135-145); Total Protein 6.7 g/dL (6.2-8.2); Triglycerides 181.00 mg/dL (0.00-149.00); Uric Acid 7.6 mg/dL (3.7-8.7); VLDL Calculation 36.20 mg/dL (5.00-40.00)
[2024-10-24 16:22] LABS: Bilirubin,Urine Negative (Negative); Blood,Urine Negative (Negative); Color,Urine Yellow (Yellow); Ketones,Urine Negative (Negative); Nitrite,Urine Negative (Negative); PH, Urine 5.5; Specific Gravity,Urine 1.020 (1.001-1.030); Urobilinogen,Urine 0.2 E.U./DL
== END | disposition home or self-care (01) ==
LOC: LABWHC1 07:22
PROVIDERS: ATTEND Nurse Practitioner Adult Health
DX: I10 Essential (primary) hypertension (principal); E55.9 Vitamin D deficiency, unspecified; E78.2 Mixed hyperlipidemia; E11.9 Type 2 diabetes mellitus without complications
CPT/HCPCS: 36415; 80053; 80061; 81003; 82043; 82306; 82550; 82570; 83036; 83735; 84443; 84550; 85025